=== PATIENT | male | born 1965 | race Caucasian/White ===

== ENCOUNTER 2020-09-08 15:17 | Outpatient (REF) | payer OTHER, SELFPAY ==
[2020-09-08 15:51] LABS: Glucose Urine UA NEG (NEG); Leukocyte Esterase Urine NEG (NEG); Nitrite Urine NEG (NEG); PH 5.5 (5.0-8.0); Specific Gravity - Urine >= 1.030 (1.005-1.025); Urine Blood 2+ (NEG); Urine Ketones NEG (NEG); Urine Protein NEG (NEG-TRACE)
[2020-09-08 15:57] LABS: Appearance Urine CLEAR; Color Urine YELLOW
[2020-09-08 16:13] LABS: RBC Urine 0-2 /HPF (0); WBC Urine 0 /HPF (0-4)
== END 2020-09-08 15:18 | disposition home or self-care (01) ==
LOC: HO.LAB 15:17
PROVIDERS: PCP Internal Medicine; Visit Provider Internal Medicine
DX: R31.9 Hematuria, unspecified (principal)
CPT/HCPCS: 81001

== ENCOUNTER → 2020-09-26 13:53 | Outpatient (BNVA) | payer OTHER, SELFPAY | PROVIDERS: PCP Internal Medicine; Visit Provider Physician Assistant Medical | DX: Z76.89 Persons encountering health services in other specified circumstances (principal) | CPT/HCPCS: G0296 ==

== ENCOUNTER 2020-10-15 09:38 | Outpatient (REF) | payer OTHER, SELFPAY ==
--- NOTE | 2020-10-15 09:40 | CT_ITS ---
EXAMINATION: CT CHEST SCREENING CLINICAL INFORMATION: Smoker. COMPARISON: CT chest 10/13/2009 TECHNIQUE: Multidetector volumetric CT imaging of the chest is performed without contrast using low dose technique. Additional 2D coronal and sagittal reformatted images and axial 3D maximum intensity projection (MIP) images are generated on the CT workstation. This CT examination was performed using dose optimization techniques as appropriate, variously including the following: *Automated exposure control *Adjustment of mA and/or kV according to patient size (this includes techniques or standardized protocols for targeted exams where dose is matched to indication/reason for exam; i.e. extremities or head) *Use of iterative reconstruction technique DLP: 56 mGy-cm FINDINGS: LUNGS: The lungs are hyperinflated with multiple calcified 1-2 mm nodules throughout both lungs. There is a 6 mm noncalcified nodule right lower lobe axial image 266/6, 4 mm nodule left lower lobe axial image 292/6, 2 mm right major fissure nodule image 288/6 likely intrafissural lymph node noted. MEDIASTINUM: The thyroid lobes are symmetrical and normal. The central trachea and the bronchi appear widely patent. Heart size and the great vessels are normal caliber. There are small precarinal and subcarinal lymph nodes. No pericardial effusion seen. PLEURA: There is no pleural effusion. No pleural mass or thickening. AXILLA: No lymphadenopathy. UPPER ABDOMEN: The visualized liver, spleen, pancreas, and bilateral adrenal glands are unremarkable. OSSEOUS STRUCTURES: There is no lytic or sclerotic process seen. CT/CT lung screening IMPRESSION: Hyperinflated lungs with multiple calcified small granulomas. Two noncalcified nodules left lower lobe and right lower lobe. There is an intrafissural lymph node right lung. ASSESSMENT: Lung-RADS category 3: Probably Benign. RECOMMENDATION: Six-month low-dose CT followup.
== END 2020-10-15 09:39 | disposition home or self-care (01) ==
LOC: HO.CT 09:38
PROVIDERS: Visit Provider Physician Assistant Medical
DX: F17.210 Nicotine dependence, cigarettes, uncomplicated (principal)
CPT/HCPCS: 71250

== ENCOUNTER 2021-05-15 13:58 | Outpatient (REF) | payer OTHER, SELFPAY ==
--- NOTE | ~2021-05-15 | CT_ITS ---
EXAMINATION: CT CHEST SCREENING CLINICAL INFORMATION: Nicotine dependence COMPARISON: None. TECHNIQUE: Multidetector volumetric CT imaging of the chest is performed without contrast using low dose technique. Additional 2D coronal and sagittal reformatted images and axial 3D maximum intensity projection (MIP) images are generated on the CT workstation. This CT examination was performed using dose optimization techniques as appropriate, variously including the following: *Automated exposure control *Adjustment of mA and/or kV according to patient size (this includes techniques or standardized protocols for targeted exams where dose is matched to indication/reason for exam; i.e. extremities or head) *Use of iterative reconstruction technique DLP: 108 mGy-cm. FINDINGS: LUNGS: The lungs are well expanded and clear of acute pneumonic process. There are scattered 2 mm calcified nodules right upper lobe, left upper lobe, right middle lobe. No noncalcified nodules, mass or consolidation seen. MEDIASTINUM: The thyroid lobes are symmetric and normal. The central trachea and the bronchi are widely patent. Heart size and the great vessels are normal caliber. No pericardial effusion seen. No abnormal-sized mediastinal or hilar lymph nodes visualized. PLEURA: There is no pleural effusion. No pleural mass or thickening. AXILLA: No lymphadenopathy. UPPER ABDOMEN: Visualized liver, spleen, pancreas and bilateral adrenal glands are unremarkable. OSSEOUS STRUCTURES: No lytic or sclerotic process seen. There is mild ventral spondylosis in the dorsal spine. CT/CT lung screen follow up IMPRESSION: Small 2 mm calcified pulmonary nodules. No noncalcified nodules seen. ASSESSMENT: Lung-RADS category 2: Benign. RECOMMENDATION: Low dose annual CT chest..
== END 2021-05-15 13:59 | disposition home or self-care (01) ==
LOC: HO.CT 13:58
PROVIDERS: Visit Provider Physician Assistant Medical
DX: Z12.2 Encounter for screening for malignant neoplasm of respiratory organs (principal); F17.210 Nicotine dependence, cigarettes, uncomplicated
CPT/HCPCS: 71250

== ENCOUNTER → 2021-06-05 09:57 | Outpatient (BNVA) | payer OTHER, SELFPAY | PROVIDERS: PCP Internal Medicine; Visit Provider Surgery | DX: R91.8 Other nonspecific abnormal finding of lung field (principal); F12.90 Cannabis use, unspecified, uncomplicated; F17.210 Nicotine dependence, cigarettes, uncomplicated; Z71.6 Tobacco abuse counseling | CPT/HCPCS: 99212 ==

== ENCOUNTER 2021-09-28 10:16 | Outpatient (REF) | payer OTHER, SELFPAY ==
[2021-09-28 10:20] LABS: MANUAL DIFF FLAG NO
[2021-09-28 10:40] LABS: Basophils Absolute Auto 0.1 X10*3/uL (0.0-0.2); Basophils Percent Auto 0.7 % (0-2); Eosinophils Absolute Auto 0.4 X10*3/uL (0.0-0.4); Eosinophils Percent Auto 4.4 % (0-4); Hematocrit 45.5 % (42.0-52.0); Hemoglobin 15.3 g/dl (14.0-18.0); Imm Gran Abs Auto 0.03 X10*3/uL (0.00-0.03); Imm Gran Pct Auto 0.3 % (0.0-0.4); Lymphocytes Absolute Auto 3.3 X10*3/uL (1.2-4.9); Lymphocytes Percent Auto 37.4 % (20-40); Mean Corpuscular HGB Conc 33.6 g/dl (31.0-36.0); Mean Corpuscular Hemoglobin 28.7 pg (27.0-33.0); Mean Corpuscular Volume 85.4 fL (80.0-98.0); Mean Platelet Volume 9.1 fL (9.4-12.4); Monocytes Absolute Auto 0.8 X10*3/uL (0.1-1.2); Monocytes Percent Auto 9.3 % (2-11); Neutrophils Absolute Auto 4.3 x10*3/uL (2.0-8.3); Neutrophils Percent Auto 47.9 % (45-73); Platelet Count 253 X10*3/uL (160-400); Red Blood Count 5.33 X10*6/uL (4.60-5.80); Red Cell Distribution Width 12.7 % (11.0-16.0); White Blood Count 8.9 X10*3/uL (4.8-10.8)
[2021-09-28 10:54] LABS: Appearance Urine CLEAR; Color Urine YELLOW; Glucose Urine UA NEG (NEG); Leukocyte Esterase Urine NEG (NEG); Nitrite Urine NEG (NEG); PH 5.5 (5.0-8.0); Specific Gravity - Urine 1.025 (1.005-1.025); Urine Blood 2+ (NEG); Urine Ketones NEG (NEG); Urine Protein NEG (NEG-TRACE)
[2021-09-28 11:10] LABS: Alanine Aminotransferase 29 U/L (0-40); Albumin Level 4.2 g/dL (3.5-5.0); Alkaline Phosphatase 73 U/L (39-117); Anion Gap 13 (12-20); Aspartate Amino Transferase 23 U/L (5-37); Bilirubin Total 0.3 mg/dL (0.0-1.0); Blood Urea Nitrogen 20 mg/dL (9-16); Calcium 9.2 mg/dL (8.4-10.2); Carbon Dioxide 27 mmol/L (22-29); Chloride 103 mmol/L (96-108); Cholesterol 162 mg/dL; Estimated Glomerular Filt Rate > 60; Glucose Fasting 108 mg/dL (60-99); HDL Cholesterol 27 mg/dL; LDL Cholesterol Calculated 94 mg/dl; Potassium 4.1 mmol/L (3.3-5.1); Sodium 139 mmol/L (135-145); Total Protein 7.6 g/dL (6.5-8.0); Triglycerides 207 mg/dL
[2021-09-28 11:32] LABS: PSA,Total (Free>4and<10) 0.21 ng/mL (0.00-4.00)
[2021-09-28 12:14] LABS: WBC Urine 0-2 /HPF (0-4)
== END 2021-09-28 10:17 | disposition home or self-care (01) ==
LOC: HO.LNP 10:16
PROVIDERS: Visit Provider Internal Medicine
DX: Z00.00 Encounter for general adult medical examination without abnormal findings (principal); Z12.5 Encounter for screening for malignant neoplasm of prostate; R31.9 Hematuria, unspecified; D72.820 Lymphocytosis (symptomatic); D72.829 Elevated white blood cell count, unspecified; K57.92 Diverticulitis of intestine, part unspecified, without perforation or abscess without bleeding
CPT/HCPCS: 80053; 80061; 81001; 84153; 85025

== ENCOUNTER → 2021-11-27 08:30 | Outpatient (BNVA) | payer OTHER, SELFPAY | PROVIDERS: PCP Internal Medicine; Referring Provider Internal Medicine; Visit Provider Internal Medicine Cardiovascular Disease | DX: R07.2 Precordial pain (principal); Z91.89 Other specified personal risk factors, not elsewhere classified | CPT/HCPCS: 93005; 99202 ==

== ENCOUNTER 2021-11-30 10:17 | Emergency (ER) | payer OTHER, SELFPAY ==
--- NOTE | ~2021-11-30 | CT_ITS ---
EXAMINATION: CT ABDOMEN AND PELVIS WITH CONTRAST CLINICAL INFORMATION: LLQ pain, history of diverticulitis. COMPARISON: Previous CT of the abdomen and pelvis May 2020 TECHNIQUE: Multidetector volumetric images were obtained from the superior aspect of the liver through the pubic symphysis following administration 85 mL of Omnipaque 350 intravenous contrast. Sagittal and coronal reformatted images were obtained on the technologist's workstation. Oral contrast: Yes This CT examination was performed using dose optimization techniques as appropriate, variously including the following: *Automated exposure control *Adjustment of mA and/or kV according to patient size (this includes techniques or standardized protocols for targeted exams where dose is matched to indication/reason for exam; i.e. extremities or head) *Use of iterative reconstruction technique DLP: 814.50 mGy-cm FINDINGS: LUNG BASES: There is dependent atelectasis at the lung bases. There is question of wall thickening of the distal thoracic esophagus. There is a posterior mediastinal lymph node adjacent to the esophagus in size measuring 7 x 10 mm. LIVER, GALLBLADDER, AND BILIARY TREE: The liver is low in attenuation suggestive of fatty infiltration. PANCREAS: The common bile duct appears dilated in the head of the pancreas measuring up to 6 mm. This is increased from May 2020 exam. SPLEEN: Unremarkable. ADRENAL GLANDS: Unremarkable. KIDNEYS AND URETERS: There are bilateral renal cysts. There is a small 1-2 mm stone in the upper pole of the left kidney. BLADDER: Unremarkable. GASTROINTESTINAL TRACT: There is diverticulosis of the colon. There is wall thickening of the left sigmoid colon and stranding of the surrounding fat suggestive of diverticulitis. No evidence of obstruction, perforation or abscess is seen. The small and large bowel is otherwise unremarkable. The appendix is unremarkable. The stomach is unremarkable. ABDOMINAL WALL: There is a small umbilical hernia containing fat. LYMPH NODES: Normal. VASCULAR: Unremarkable. PELVIC VISCERA: Unremarkable. OSSEOUS STRUCTURES: Unremarkable. CT/CT abdomen pelvis w con IMPRESSION: Left colon diverticulitis. Fatty liver. Dilated pancreatic duct in the head of the pancreas increased from previous exams. This could be better evaluated with MR of the pancreas with MRCP. Bilateral renal cysts. Small left renal stone. Question wall thickening of the distal thoracic esophagus. Fleischner guidelines were followed.
[2021-11-30 10:27] VITALS: BP 131/82; PULSE 89; RESP 17; TEMP 36.9; O2SAT 95; BMI 30.1
--- NOTE | 2021-11-30 12:13 | ED.ABDPAIN ---
HPI - Abdominal Pain General Chief Complaint: Abdominal Pain Stated Complaint: diverticulitis Time Seen by Provider: 11/30/21 11:56 Source: patient Mode of arrival: ambulatory Limitations: no limitations History of Present Illness HPI narrative: Patient comes emergency room complaining of left lower quadrant pain since yesterday. Patient states he has history of diverticulitis. Last flare approximately 6 years ago. Patient states that he tries to follow a diet, states he has not been constipated until yesterday. Patient denies any diarrhea, no vomiting, no fever chills, no UTI symptoms. Related Data Home Medications Medication Instructions Recorded Confirmed aripiprazole 2 mg tablet 4 mg PO DAILY 11/27/21 11/27/21 aspirin 81 mg tablet,delayed 81 mg PO DAILY 11/27/21 11/27/21 release (Adult Low Dose Aspirin) citalopram 20 mg tablet 20 mg PO DAILY 11/27/21 11/27/21 multivitamin 1 tab PO DAILY 11/27/21 11/27/21 Previous Rx's Medication Instructions Recorded levofloxacin 500 mg tablet 500 mg PO DAILY #9 tab 11/30/21 metronidazole 250 mg tablet 250 mg PO BID #19 tab 11/30/21 tramadol 50 mg tablet 50 mg PO BID PRN #7 tab 11/30/21 Allergies Allergy/AdvReac Type Severity Reaction Status Date / Time temazepam [TEMAZEPAM] Allergy Unknown SLEEPWALKIN Unverified 07/24/20 15:39 G From BENADRYL Allergy Unknown TWITCHING Uncoded 07/24/20 15:39 Review of Systems Review of Systems Constitutional : No Weight loss, No Fever, No Chills, No Night Sweats, No Fatigue, No Malaise ENT/Mouth : No Hearing loss, No Ear Pain, No Nasal Congestion, No Sinus Pain, No Hoarseness, No sore throat, No Rhinorrhea, No Swallowing Difficulty Eyes: No Eye Pain, No Swelling, No Redness, No Foreign Body, No Discharge, No Vision Changes Cardiovascular : No Chest Pain, No SOB, No Dyspnea on Exertion, No Orthopnea, No Edema, No Palpitations Respiratory : No Cough, No Sputum, No Wheezing, No Smoke Exposure, No Dyspnea Gastrointestinal : No Nausea, No Vomiting, No Diarrhea, Constipation since yesterday, complaining of left lower quadrant pain since yesterday Genitourinary : no irregular bleeding, No Dysuria, No Urinary Frequency, No Hematuria, No Urinary Incontinence, No Urgency, No Flank Pain, No Urinary Flow Changes, No Hesitancy Musculoskeletal : No joint pain, No Myalgias, No Joint Swelling Skin : No Skin Lesions, No rash Neuro : No Weakness, No Numbness, No Paresthesias, No Loss of Consciousness, No Dizziness, No Headache Psych : No Anxiety/Panic, No Depression, No SI/HI/AH/VH, No Social Issues, Heme/Lymph: No Bruising, No Bleeding,No Lymphadenopathy Endocrine : No Polyuria, No Polydipsia, No Temperature Intolerance Physical Exam Vital Signs: Vital Signs: Last Vital Signs Temp 97.9 F 11/30/21 15:10 Pulse 86 11/30/21 15:10 Resp 18 11/30/21 15:10 BP 124/84 11/30/21 15:10 Pulse Ox 96 11/30/21 15:10 BMI result Body Mass Index 30.1 Const: Other: Appearance: Alert. Oriented X3. No acute distress. Eyes: Pupils equal, round and reactive to light. ENT: Pharynx normal. Neck: Normal inspection. Neck supple. No lymph nodes noted. No crepitus CVS: Normal heart rate and rhythm. Pulses normal. Normal S1 and S2 Respiratory: No respiratory distress. Breath sounds normal. No Wheezing. No rales Abdomen: Soft , pain to palpation in the left lower quadrant.No rigidity. No distention. Skin: Skin warm and dry. Normal skin color. Normal skin turgor. Extremities: No lower extremity edema. No Lacerations. No Rash Neuro: Oriented X 3. No motor deficit. No sensory deficit. Moving all extermities. No slurred speech. Course Course Course Narrative: Patient will get IV fluids, we will get a CT scan with contrast. At this time, all labs are pending. Patient declined any pain medication, states that he does not have significant pain unless he moves. I discussed the CT scan and labs with the patient, patient has diverticulitis. Patient was given 1 dose of levofloxacin and metronidazole p.o. in the emergency room. Consent to the patient's pharmacy. Also, I discussed with the patient the CT scan finding regarding the pancreas duct dilation. Patient will follow-up with his primary care physician, he may need a GI referral and possibly MRCP. at this time, patient has no discomfort in the epigastric or right upper quadrant area MDM - Abdominal Pain Lab Data Result diagrams: 11/30/21 12:18 11/30/21 12:18 Labs: Lab Results 11/30/21 11/30/21 11/30/21 Range/Units 12:18 12:18 13:24 WBC 14.3 H (4.8-10.8) X10*3/uL RBC 5.57 (4.60-5.80) X10*6/uL Hgb 16.1 (14.0-18.0) g/dl Hct 47.1 (42.0-52.0) % MCV 84.6 (80.0-98.0) fL MCH 28.9 (27.0-33.0) pg MCHC 34.2 (31.0-36.0) g/dl RDW 13.2 (11.0-16.0) % Plt Count 232 (160-400) X10*3/uL MPV 8.6 L (9.4-12.4) fL Immature Gran % (Auto) 0.4 (0.0-0.4) % Neut % (Auto) 66.7 (45-73) % Lymph % (Auto) 22.1 (20-40) % [place] % (Auto) 8.8 (2-11) % Eos % (Auto) 1.7 (0-4) % Baso % (Auto) 0.3 (0-2) % Lymph # (Auto) 3.2 (1.2-4.9) X10*3/uL [place] # (Auto) 1.3 H (0.1-1.2) X10*3/uL Eos # (Auto) 0.2 (0.0-0.4) X10*3/uL Baso # (Auto) 0.0 (0.0-0.2) X10*3/uL Abs Immat Gran (auto) 0.06 H (0.00-0.03) X10*3/uL Absolute Neuts (auto) 9.5 H (2.0-8.3) x10*3/uL Absolute Nucleated RBC 0.000 (0.0-0.012) X10*3/uL Nucleated RBC % (auto) 0.0 (0.0-0.2) /100WBC Sodium 138 (135-145) mmol/L Potassium 4.1 (3.3-5.1) mmol/L Chloride 104 (96-108) mmol/L Carbon Dioxide 27 (22-29) mmol/L Anion Gap 11 L (12-20) BUN 18 H (9-16) mg/dL Creatinine 0.85 (0.5-1.4) mg/dL Estim Creat Clear Calc 112.4 Estimated GFR > 60 Random Glucose 96 (60-115) mg/dL Calcium 9.8 D (8.4-10.2) mg/dL Total Bilirubin 0.5 (0.0-1.0) mg/dL Direct Bilirubin 0.2 (0.0-0.5) mg/dL AST 27 (5-37) U/L ALT 30 (0-40) U/L Alkaline Phosphatase 74 (39-117) U/L Total Protein 8.2 H (6.5-8.0) g/dL Albumin 4.3 (3.5-5.0) g/dL Urine Color YELLOW Urine Appearance CLEAR Urine pH 5.5 (5.0-8.0) Ur Specific [place] >= 1.030 H (1.005-1.025) Urine Protein NEG (NEG-TRACE) MG/DL Urine Glucose (UA) NEG (NEG) MG/DL Urine Ketones NEG (NEG) MG/DL Urine Blood 2+ H (NEG) Urine Nitrite NEG (NEG) Ur Leukocyte Esterase NEG (NEG) Urine RBC 1-4 (0) /HPF Urine WBC 0-2 (0-4) /HPF Ur Squamous Epith Cells NONE /LPF Urine Bacteria NONE /LPF Imaging Data CT scan - abdomen: Radiologist's impression: FINDINGS: LUNG BASES: There is dependent atelectasis at the lung bases. There is question of wall thickening of the distal thoracic esophagus. There is a posterior mediastinal lymph node adjacent to the esophagus in size measuring 7 x 10 mm. LIVER, GALLBLADDER, AND BILIARY TREE: The liver is low in attenuation suggestive of fatty infiltration. PANCREAS: The common bile duct appears dilated in the head of the pancreas measuring up to 6 mm. This is increased from May 2020 exam. SPLEEN: Unremarkable.? ADRENAL GLANDS: Unremarkable.? KIDNEYS AND URETERS: There are bilateral renal cysts. There is a small 1-2 mm stone in the upper pole of the left kidney. BLADDER: Unremarkable.? GASTROINTESTINAL TRACT: There is diverticulosis of the colon. There is wall thickening of the left sigmoid colon and stranding of the surrounding fat suggestive of diverticulitis. No evidence of obstruction, perforation or abscess is seen. The small and large bowel is otherwise unremarkable. The appendix is unremarkable. The stomach is unremarkable. ABDOMINAL WALL: There is a small umbilical hernia containing fat.? LYMPH NODES: Normal. VASCULAR: Unremarkable. PELVIC VISCERA: Unremarkable.? OSSEOUS STRUCTURES: Unremarkable.? CT/CT abdomen pelvis w con IMPRESSION: Left colon diverticulitis. Fatty liver. Dilated pancreatic duct in the head of the pancreas increased from previous exams. This could be better evaluated with MR of the pancreas with MRCP. Bilateral renal cysts. Small left renal stone. Question wall thickening of the distal thoracic esophagus. ? Fleischner guidelines were followed. Discharge Plan Discharge Clinical Impression: Diverticulitis Patient Disposition: Home, Self-Care Instructions: Diverticulitis (ED), Diverticulitis Diet (ED) Additional Instructions: please follow-up with your primary care physician tomorrow. You have a dilation of the duct in your pancreas. You may need further imaging. If you have any worsening or new symptoms, please return to the emergency room or call 911 Prescriptions: New levofloxacin 500 mg tablet 500 mg PO DAILY Qty: 9 RF: 0 metronidazole 250 mg tablet 250 mg PO BID Qty: 19 RF: 0 tramadol 50 mg tablet 50 mg PO BID PRN (Reason: pain) Qty: 7 RF: 0 No Action aripiprazole 2 mg tablet 4 mg PO DAILY RF: 0 citalopram 20 mg tablet 20 mg PO DAILY RF: 0 aspirin [Adult Low Dose Aspirin] 81 mg tablet,delayed release (DR/EC) 81 mg PO DAILY RF: 0 multivitamin Tablet 1 tab PO DAILY RF: 0 PMFSH Past Medical History Medical History Personal history of nicotine dependence Pulmonary nodules Family History Family History Father No problems noted. Mother Lung cancer Social History Social History Alcohol intake: current Alcohol intake frequency: does not drink Cigarettes Per Day: 15 Years Smoked: 37 Advance Directives: No Advance Directives Information Provided: No
[2021-11-30] MEDS: 0.9 % Sodium Chloride 1,000 ML 999 ML IVCONT (12:19)
[2021-11-30 12:24] LABS: MANUAL DIFF FLAG NO
[2021-11-30 12:28] LABS: Basophils Percent Auto 0.3 % (0-2); Eosinophils Absolute Auto 0.2 X10*3/uL (0.0-0.4); Eosinophils Percent Auto 1.7 % (0-4); Hematocrit 47.1 % (42.0-52.0); Hemoglobin 16.1 g/dl (14.0-18.0); Imm Gran Abs Auto 0.06 X10*3/uL (0.00-0.03); Imm Gran Pct Auto 0.4 % (0.0-0.4); Lymphocytes Absolute Auto 3.2 X10*3/uL (1.2-4.9); Lymphocytes Percent Auto 22.1 % (20-40); Mean Corpuscular HGB Conc 34.2 g/dl (31.0-36.0); Mean Corpuscular Hemoglobin 28.9 pg (27.0-33.0); Mean Corpuscular Volume 84.6 fL (80.0-98.0); Mean Platelet Volume 8.6 fL (9.4-12.4); Monocytes Absolute Auto 1.3 X10*3/uL (0.1-1.2); Monocytes Percent Auto 8.8 % (2-11); Neutrophils Absolute Auto 9.5 x10*3/uL (2.0-8.3); Neutrophils Percent Auto 66.7 % (45-73); Platelet Count 232 X10*3/uL (160-400); Red Blood Count 5.57 X10*6/uL (4.60-5.80); Red Cell Distribution Width 13.2 % (11.0-16.0); White Blood Count 14.3 X10*3/uL (4.8-10.8)
[2021-11-30 12:45] LABS: Alanine Aminotransferase 30 U/L (0-40); Albumin Level 4.3 g/dL (3.5-5.0); Alkaline Phosphatase 74 U/L (39-117); Anion Gap 11 (12-20); Aspartate Amino Transferase 27 U/L (5-37); Bilirubin Direct 0.2 mg/dL (0.0-0.5); Bilirubin Total 0.5 mg/dL (0.0-1.0); Blood Urea Nitrogen 18 mg/dL (9-16); Calcium 9.8 mg/dL (8.4-10.2); Carbon Dioxide 27 mmol/L (22-29); Chloride 104 mmol/L (96-108); Creatinine Clr Calc Pharmacy 112.4; Estimated Glomerular Filt Rate > 60; Glucose Random 96 mg/dL (60-115); Potassium 4.1 mmol/L (3.3-5.1); Sodium 138 mmol/L (135-145); Total Protein 8.2 g/dL (6.5-8.0)
[2021-11-30 13:22] VITALS: BP 115/76; PULSE 76; RESP 17; TEMP 36.7; O2SAT 98
[2021-11-30 13:34] LABS: Appearance Urine CLEAR; Color Urine YELLOW; Glucose Urine UA NEG (NEG); Leukocyte Esterase Urine NEG (NEG); Nitrite Urine NEG (NEG); PH 5.5 (5.0-8.0); Specific Gravity - Urine >= 1.030 (1.005-1.025); UACC Culture Trigger NO; Urine Blood 2+ (NEG); Urine Ketones NEG (NEG); Urine Protein NEG (NEG-TRACE)
[2021-11-30] MEDS: iohexoL 350 MG/ML 100 ML INFUS..BTL IV (13:45)
[2021-11-30 13:57] LABS: WBC Urine 0-2 /HPF (0-4)
[2021-11-30 15:10] VITALS: BP 124/84; PULSE 86; RESP 18; TEMP 36.6; O2SAT 96
[2021-11-30] MEDS: levoFLOXacin 500 MG TABLET PO (15:49)
[2021-11-30] MEDS: metroNIDAZOLE 250 MG TABLET PO (15:50)
== END 2021-11-30 15:53 | disposition home or self-care (01) ==
PROVIDERS: Emergency Provider Emergency Medicine; PCP Internal Medicine
DX: K57.92 Diverticulitis of intestine, part unspecified, without perforation or abscess without bleeding (principal); R10.32 Left lower quadrant pain; K86.89 Other specified diseases of pancreas; F17.200 Nicotine dependence, unspecified, uncomplicated; R91.8 Other nonspecific abnormal finding of lung field
CPT/HCPCS: 36415; 74177; 80048; 80076; 81001; 85025; 96360; 99283; 99284; Q9967

== ENCOUNTER 2021-12-18 07:21 | Outpatient (REF) | payer OTHER, SELFPAY ==
--- NOTE | ~2021-12-18 | MR_ITS ---
EXAMINATION: MR ABDOMEN WITHOUT AND WITH CONTRAST CLINICAL INFORMATION: Follow up pancreatic duct dilatation. COMPARISON: Previous CT of the abdomen and pelvis most recent November 2021. TECHNIQUE: MR abdomen was performed without and with use of 10 mL intravenous Gadavist gadolinium contrast. Postcontrast images are performed in multiphase dynamic sequences. Imaging was performed in 3 planes. MRCP sequences were also performed. FINDINGS: LUNG BASES: The visualized lung bases are unremarkable. LIVER, GALLBLADDER, AND BILIARY TREE: No focal hepatic lesion or biliary ductal dilatation is present. The gallbladder is unremarkable with no evidence of gallbladder wall thickening, or obvious pericholecystic inflammatory changes. PANCREAS: There is mild dilatation of the main pancreatic duct in the head of the pancreas measuring 6 mm and measuring 5 mm in the neck of the pancreas. No filling defect in the main pancreatic duct is seen. The pancreas is otherwise normal. The pancreas is normal in signal. No abnormal enhancement or mass is seen. The peripancreatic fat is normal. The pancreas is normal in signal. No mass is seen. SPLEEN: Normal. ADRENAL GLANDS: Normal. KIDNEYS AND URETERS: Bilateral renal cysts. There is a 2 cm complex cyst in the lower pole of the right kidney which is high signal on T1-weighted sequences and has a fluid/fluid level. The remainder of the cysts represent simple cysts. The kidneys are normal in size, shape, and enhance symmetrically. No hydronephrosis. No perinephric stranding. GASTROINTESTINAL TRACT: Diverticulosis of the colon. No bowel obstruction. No ascites or fluid collection. ABDOMINAL WALL: There is a small umbilical hernia containing fat. LYMPH NODES: No lymphadenopathy. VASCULAR: Unremarkable. OSSEOUS STRUCTURES: Marrow signal normal. MR/MR abdomen wo/w con IMPRESSION: Mild dilatation of the main pancreatic duct in the head and neck of the pancreas. No mass or filling defect seen. Fatty infiltration of the liver. Bilateral renal cysts. 2 cm complex cyst in the lower pole of the right kidney. The remainder of the renal cysts represent simple cysts. Diverticulosis of the colon.
== END 2021-12-18 07:22 | disposition home or self-care (01) ==
LOC: HO.MRI 07:21
PROVIDERS: PCP Internal Medicine; Visit Provider Internal Medicine
DX: K86.9 Disease of pancreas, unspecified (principal)
CPT/HCPCS: 74183; A9585

== ENCOUNTER → 2021-12-24 08:14 | Outpatient (REF) | payer OTHER, SELFPAY ==
--- NOTE | 2021-12-24 08:18 | CA_ITS ---
Acquisition Time: 2021-12-24 09:13:51 Total Exercise Time: 00:07:46 Test Indications: CP Medications: SEE CHART Protocol: FAIZA Max HR: 142 BPM 86% of Pred: 164 BPM Max BP: 150/080 mmHG Max Work Load: 9.7 METS Exercise stress test with exercise 7 min 46 sec of Faiza protocol, with moderate shortness of breath, no chest discomfort, with isolated PACs and PVCs, with normotensive response to exercise, without EKG changes meeting criteria for ischemia. Breathing returned to normal in recovery. Test reviewed with Dr Samano Referred By: Regino Samano Overread By: MAULIK BOOTH
== END ==
LOC: HO.CARD 08:14
PROVIDERS: Visit Provider Internal Medicine Cardiovascular Disease
DX: R07.2 Precordial pain (principal)
CPT/HCPCS: 93017

== ENCOUNTER → 2022-01-01 13:47 | Outpatient (REF) | payer OTHER, SELFPAY ==
--- NOTE | 2022-01-01 13:50 | CA_ITS ---
Transthoracic Echocardiogram Patient (Last, First, Middle): Braulio Reardon A Gender: Male Date of : 1965 Age: 56 Procedure Date: 01/01/2022 Procedure Type: Transthoracic Echocardiogram Location: OP Height: 177.8 cm Weight: 95.26 kg BSA: 2.13 m2 Heart Rate: bpm BP: 122 / 70 mmHg [employer]: KEVAN Referring MD: Regino Samano MD Symptoms: R07.2 - Precordial pain Study Quality: Fair ECG Rhythm: Sinus Conclusions: - The left ventricular systolic function is normal. The calculated ejection fraction is 59% by biplane method. - No obvious valvular pathology seen on this study. Findings Left Ventricle Normal left ventricular cavity size. There is mildly increased left ventricular wall thickness. The left ventricular systolic function is normal. The calculated ejection fraction is 59% by biplane method. There is no evidence of regional wall motion abnormalities. Diastolic function is normal for age. Right Ventricle Normal right ventricular cavity size and systolic function. Atria Both atria are normal in size. Aortic Valve There is a normal trileaflet aortic valve. There is no aortic valve stenosis. There is no aortic valve regurgitation. Mitral Valve The mitral valve appears normal. There is trace mitral valve regurgitation. There is no mitral valve stenosis. Pulmonic Valve The pulmonic valve was not well visualized. Tricuspid Valve Normal tricuspid valve structure. There is trace tricuspid valve regurgitation. The pulmonary artery systolic pressure is normal. Great Vessels The aortic annulus, sinuses of valsalva, and asc aorta are normal in size. Venous The inferior vena cava is normal in size and collapses greater than 50% with inspiration. Pericardium/Pleural There is no evidence of pericardial effusion. Prior Study Comparison No prior study available for comparison. Recommendations, Care & Conclusions No obvious valvular pathology seen on this study. Measurements 2D Linear Measurements IVSd: 1.26 0.6-0.9/0.6-1.0 cm LVIDd: 3.45 3.9-5.3/4.2-5.9 cm LVIDd Index: 1.62 2.4-3.2/2.2-3.1 cm/m2 LVIDs: 2.15 2.0-3.6 cm LVPWd: 1.23 0.7-1.1 cm Ao Root: 3.50 2.1-3.5 cm LA Diam: 3.30 2.7-3.8/3.0-4.0 cm LAIDs Index: 1.55 1.5-2.3 cm/m2 LV Mass: 175.26 67-162/88-224 g LV Mass Index: 82.28 43-95/49-115 g/m2 LVOT Diam: 2.20 3.0+(-)1.3 cm 2D Systolic Function EF 4C: 60.30 >55% EF 2C: 57.90 >55% EF BiP: 59.20 >55% Mitral Valve MV Pk E: 0.61 MV PK A: 0.81 MV Decel Time: 185.00 E/A: 0.70 E'Lateral: 9.46 E'Medial: 6.74 E/E' Med: 9.00 E/E' Lat: 6.40 PHT: 54.00 MVA PHT: 4.07 Decel Spencer: 3.29 Aortic Valve AoV Pk Brenton: 1.41 AoV Mn Brenton: 0.91 AoV VTI: 0.28 AoV Pk Grad: 8.00 Aov Mn Grad: 4.00 LIANE Cont.VTI: 2.22 LVOT LVOT Pk Brenton: 0.85 LVOT Mn Brenton: 0.51 LVOT VTI: 0.16 LVOT Pk Grad: 3.00 LVOT Mn Grad: 1.00 LVOT Diam: 2.20 LVOT Area: 3.80 Diastolic Function MV Pk E: 0.61 MV Pk A: 0.81 E/A: 0.70 E'Medial: 6.74 E/E' Med: 9.00 E' Laterial: 9.46 E/E' Lat: 6.40 Right Ventricle TAPSE (mm): 27.00 Tricuspid Valve TR Pk Brenton: 1.58 TR Pk Grad: 10.00 Great Vessels Aorta Ao Root-2D: 3.50 2.0-3.7 cm Ao Asc: 3.50 2.1-3.4 cm Pulmonary Valve PV Pk Brenton: 1.03 Peak PV Grad: 4.00 Updated in Other Vendor System with Status of Final Christ Engel MD electronically signed on 01/03/2022 12:59:06 PM with status of Final
== END ==
LOC: HO.CARD 13:47
PROVIDERS: Visit Provider Internal Medicine Cardiovascular Disease
DX: R07.2 Precordial pain (principal)
CPT/HCPCS: 93306

== ENCOUNTER → 2022-01-12 13:44 | Outpatient (BNVA) | payer OTHER, SELFPAY | PROVIDERS: PCP Internal Medicine; Referring Provider Internal Medicine; Visit Provider Nurse Practitioner Family | DX: Z01.810 Encounter for preprocedural cardiovascular examination (principal); R07.89 Other chest pain; I51.7 Cardiomegaly; G47.33 Obstructive sleep apnea (adult) (pediatric) | CPT/HCPCS: 93005; 99212 ==

== ENCOUNTER 2022-01-22 08:41 | Day surgery (SDC) | payer OTHER, SELFPAY ==
--- NOTE | 2022-01-20 14:14 | P.CONAN_ITS ---
Documented by User: Marie Luke NP 01/20/22 14:16 HPI - Anesthesia Eval Consult details Narrative: 56yo M for Upper Endoscopy Cardiac cleared at low risk [facility] Active Problems Active Problems: All Active Problems (Updated 01/19/22 @ 15:02 by Maribell Andrea, RN) Chest discomfort (Acute) Obstructive sleep apnea (Acute) LVH (left ventricular hypertrophy) (Acute) Preop cardiovascular exam (Acute) Personal history of nicotine dependence (Acute) Pulmonary nodules (Acute) Past Medical History Medical History History of depression History of diverticulitis Palpitations Personal history of nicotine dependence Pulmonary nodules Family History Family History Father No problems noted. Mother Lung cancer Surgical History Surgical History Hx of basal cell carcinoma excision Hx of colonoscopy Social History Social History Alcohol intake: current Alcohol intake frequency: does not drink Patient Tobacco Use Status: Former Tobacco user Quit Date: 2019 Cigarettes Per Day: 15 Years Smoked: 37 Substance Use Type Other:: smoked yesterday, smokes bid Substance Use Frequency: Daily Are you DNR?: No Advance Directives: No Advance Directives Information Provided: Yes Recently lost weight without trying: No Meds Allergies Allergy/AdvReac Type Severity Reaction Status Date / Time temazepam [TEMAZEPAM] Allergy Unknown SLEEPWALKIN Verified 01/19/22 15:02 G From BENADRYL Allergy Unknown TWITCHING Uncoded 01/19/22 15:02 Home Medications Medication Instructions Recorded Confirmed Last Taken Type aripiprazole 2 mg tablet 4 mg PO DAILY 11/27/21 01/19/22 Unknown History aspirin 81 mg tablet,delayed 81 mg PO DAILY 11/27/21 01/19/22 Unknown History release (Adult Low Dose Aspirin) citalopram 20 mg tablet 20 mg PO DAILY 11/27/21 01/19/22 Unknown History multivitamin 1 tab PO DAILY 11/27/21 01/19/22 Unknown History Exam Exam Date and Time: January 20, 2022 1414 Pertinent Lab Results Pertinent Lab Results: Laboratory Tests 11/30/21 11/30/21 12:18 12:18 WBC 14.3 H Hgb 16.1 Hct 47.1 Plt Count 232 Sodium 138 Potassium 4.1 Chloride 104 Carbon Dioxide 27 BUN 18 H Creatinine 0.85 Narrative Narrative: EKG 01/2022 normal sinus rhythm, incomplete right bundle-branch block, no change from prior EKG, rate 79 ECHO 12/2021 Conclusions: - The left ventricular systolic function is normal.? The ? calculated ejection fraction is 59% by biplane method. ? - No obvious valvular pathology seen on this study.? ? ? Exercise Stress 12/2021 Protocol: BRENNEN ? Max HR: 142 BPM? 86% of? Pred: 164 BPM Max BP: 150/080 mmHG Max Work Load: 9.7 METS ? Exercise stress test with exercise 7 min 46 sec of Brennen protocol, with moderate ?shortness of breath, no chest discomfort, with isolated PACs and PVCs, with ?normotensive response to exercise, without EKG changes meeting criteria for ?ischemia. Breathing returned to normal in recovery.? Test reviewed with Dr De La Torre Assessment and Plan Assessment Anesthesia Assessment: Chart Reviewed Documented by User: Lisa Pang MD 01/22/22 09:46 PMFSH Past Medical History Medical History History of depression History of diverticulitis Palpitations Personal history of nicotine dependence Pulmonary nodules Family History Family History Father No problems noted. Mother Lung cancer Surgical History Surgical History Hx of basal cell carcinoma excision Hx of colonoscopy History of Problems with Anesthesia: No Social History Social History Alcohol intake: current Alcohol intake frequency: does not drink Patient Tobacco Use Status: Former Tobacco user Quit Date: 2019 Cigarettes Per Day: 15 Years Smoked: 37 Substance Use Type Other:: smoked yesterday, smokes bid Substance Use Frequency: Daily Are you DNR?: No Advance Directives: No Advance Directives Information Provided: Yes Recently lost weight without trying: No Meds Allergies Allergy/AdvReac Type Severity Reaction Status Date / Time temazepam [TEMAZEPAM] Allergy Unknown SLEEPWALKIN Verified 01/19/22 15:02 G From BENADRYL Allergy Unknown TWITCHING Uncoded 01/19/22 15:02 Home Medications Medication Instructions Recorded Confirmed Last Taken Type aripiprazole 2 mg tablet 4 mg PO DAILY 11/27/21 01/19/22 Unknown History aspirin 81 mg tablet,delayed 81 mg PO DAILY 11/27/21 01/19/22 Unknown History release (Adult Low Dose Aspirin) citalopram 20 mg tablet 20 mg PO DAILY 11/27/21 01/19/22 Unknown History multivitamin 1 tab PO DAILY 11/27/21 01/19/22 Unknown History Exam Airway Mallampati Class: II TM Dist: >3cm Neck ROM: Full Loose/Missing/Broken Teeth: No Heart: RRR Lungs: CTA Assessment and Plan Assessment Anesthesia Assessment: Anesthesia Plan Discussed Final Anesthetic Review History of Problems with Anesthesia: No NPO: Yes ASA Class: II Final Preanesthetic Review: Meds/Allgs Chart Reviewed, Consent Obtained/Reviewed and Anes Risks/Benef Reviewed Patient Risk: Intermediate Procedure Risk: Intermediate Anesthetic Plan Anesthetic Plan: MAC: Disposition: Standard PACU
[2022-01-22 08:49] VITALS: BMI 30.1
[2022-01-22 09:07] VITALS: BP 114/75; PULSE 70; RESP 18; TEMP 36.9; O2SAT 96
[2022-01-22] MEDS: Lactated Ringers 1,000 ML 100 ML IVCONT (09:33)
--- NOTE | 2022-01-22 09:45 | P.HPSUR_ITS ---
Pre-Procedural Eval Section A Date of Service: 01/22/22 Section B Chief Complaint: ab findings Details of Present Illness: see h&p no changes Relevant Family History (Specify if Yes): No Relevant Social History: None Present Medications: see Short Stay Collaborative assessment Medical History: No relevant PMH History of Previous Operations: No relevant previous surgery Allergies: Allergies Allergy/AdvReac Type Severity Reaction Status Date / Time temazepam [TEMAZEPAM] Allergy Unknown SLEEPWALKIN Verified 01/19/22 15:02 G From BENADRYL Allergy Unknown TWITCHING Uncoded 01/19/22 15:02 Review of Systems Sugical H&P ROS: Negative: Constitution, Cardiovascular, Respiratory, Neurological, Psychiatric, Hem-Onc, Allergic/Immunologic, Gastrointestinal, Genitourinary, Musculoskeletal, Integumentary, Endocrine and Eyes/Ears/Nose /Throat Exam Surgical H&P Exam: Normal: HEENT, Normal: Heart, Normal: Lungs, Normal: Extremities, Normal: Abdomen, Normal: Skin and Normal: Neurological Plan Diagnosis/Plan: Unchanged I have reviewed the history and physical and performed a pertinent physical examination on my patient. No changes have occurred unless specified.
[2022-01-22 10:11] VITALS: BP 106/74; PULSE 83; RESP 18; TEMP 36.2; O2SAT 98
--- NOTE | 2022-01-22 10:17 | PM.OP ---
Brief Operative Note Date of Service: 01/22/22 Pre-op diagnosis: dysphagia Post-op diagnosis: same Procedure: egd Surgeon: Dylan Castro Anesthesia: MAC Was an Respiratory Therapy Instructor used for this Procedure?: No Estimated blood loss (mL): 5 Pathology: other (bxs rgj and antrum) Condition: stable Disposition: PACU
[2022-01-22 10:26] VITALS: BP 124/70; PULSE 75; RESP 18; TEMP 36.2; O2SAT 97
--- NOTE | 2022-01-22 11:07 | OP_ITS ---
SURGEON: Dylan Castro MD INDICATIONS: Dysphagia and gastroesophageal reflux disease. PREOPERATIVE DIAGNOSIS: POSTOPERATIVE DIAGNOSIS: PROCEDURE PERFORMED: Upper endoscopy with biopsy. ESTIMATED BLOOD LOSS: COMPLICATIONS: ANESTHESIA: ASSISTANTS: SPECIMENS: MEDICATIONS: Monitored anesthesia care. DESCRIPTION OF PROCEDURE: History and physical were performed. The risks and benefits of the procedure were explained to the patient. Informed consent was obtained. The patient was placed in left lateral decubitus position. The Olympus video gastroscope was introduced into the esophagus, stomach, and duodenum. Examination was performed. The scope was removed. He tolerated the procedure well and was taken to recovery in stable condition. FINDINGS: Esophagus: The esophagus showed erosive esophagitis of the distal 5 cm with linear erosions and friability. The mucosa blood easily in contact. There was no stricture. There was a small sliding hiatal hernia. Stomach: The stomach showed no evidence of masses or ulcers. Changes of gastritis were present in the body. Duodenum: The bulb and second portion were normal. Biopsies were obtained from the EG junction and from the antrum. IMPRESSION: 1. Erosive esophagitis. 2. Gastritis. RECOMMENDATION: 1. Follow up the biopsy results. 2. Begin high-dose proton pump inhibitor. 3. Repeat upper endoscopy is recommended in approximately 12 weeks for reassessment of the mucosal healing and possible balloon dilation. MD DYLON Bryant/DAVIDAL / [id number]
== END 2022-01-22 11:35 | disposition home or self-care (01) ==
PROVIDERS: PCP Internal Medicine; Visit Provider Internal Medicine Gastroenterology
PROC: 0DJ08ZZ Inspection of Upper Intestinal Tract, Via Natural or Artificial Opening Endoscopic (ICD-10-PCS; CPT 43235; principal; 2022-01-22 09:50)
DX: K22.10 Ulcer of esophagus without bleeding (principal); K29.50 Unspecified chronic gastritis without bleeding; B96.81 Helicobacter pylori [H. pylori] as the cause of diseases classified elsewhere; K21.9 Gastro-esophageal reflux disease without esophagitis; K44.9 Diaphragmatic hernia without obstruction or gangrene
CPT/HCPCS: 43239; 88305; 88312; 88342; J2405; J2765

== ENCOUNTER 2022-03-22 12:15 | Emergency (ER) | payer OTHER, SELFPAY | END 2022-03-22 19:22 | disposition left against medical advice (07) | PROVIDERS: Emergency Provider Emergency Medicine | DX: M79.601 Pain in right arm (principal) ==

== ENCOUNTER 2022-05-07 08:55 | Day surgery (SDC) | payer OTHER, SELFPAY ==
[2022-04-06 20:24] VITALS: BMI 30.1
--- NOTE | 2022-05-06 09:42 | P.CONAN_ITS ---
Documented by User: Marie Luke NP 05/06/22 09:45 HPI - Anesthesia Eval Consult details Narrative: 56yo M for Upper Endoscopy Cardiac cleared [facility] Active Problems Active Problems: All Active Problems (Updated 04/06/22 @ 19:52 by Kajal Montejo RN) Chest discomfort (Acute) Obstructive sleep apnea (Acute) LVH (left ventricular hypertrophy) (Acute) Preop cardiovascular exam (Acute) Personal history of nicotine dependence (Acute) Pulmonary nodules (Acute) Past Medical History Medical History (Updated 04/06/22 @ 19:52 by Kajal Montejo RN) COPD (chronic obstructive pulmonary disease) Elevated AFP Elevated cholesterol GERD (gastroesophageal reflux disease) H. pylori infection History of depression History of diverticulitis Palpitations Personal history of nicotine dependence Pulmonary nodules Family History Family History Father No problems noted. Mother Lung cancer Surgical History Surgical History (Updated 04/07/22 @ 13:00 by Maribell Andrea RN) History of esophagogastroduodenoscopy (EGD) Hx of basal cell carcinoma excision Hx of colonoscopy History of Problems with Anesthesia: No Social History Social History Alcohol intake: current Alcohol intake frequency: does not drink Patient Tobacco Use Status: Former Tobacco user Quit Date: 2016 Cigarettes Per Day: 15 Years Smoked: 37 Smoked in Last 30 Days: No Use of substances other than those prescribed or required for medical reasons: Yes Substance Use Frequency: Daily Are you DNR?: Yes Advance Directives: No Advance Directives Information Provided: No Advance Directives on File: No Recently lost weight without trying: No Nutrition Risks: No Nutritional Risk Meds Allergies Allergy/AdvReac Type Severity Reaction Status Date / Time temazepam [TEMAZEPAM] Allergy Unknown SLEEPWALKIN Verified 04/07/22 13:00 G feathers Allergy Hives Verified 04/06/22 19:47 From BENADRYL Allergy Unknown TWITCHING Uncoded 04/07/22 13:00 Home Medications Medication Instructions Recorded Confirmed Last Taken Type aripiprazole 2 mg tablet 4 mg PO DAILY 11/27/21 04/06/22 Unknown History aspirin 81 mg tablet,delayed 81 mg PO DAILY 11/27/21 04/06/22 Unknown History release (Adult Low Dose Aspirin) citalopram 20 mg tablet 20 mg PO DAILY 11/27/21 04/06/22 Unknown History multivitamin 1 tab PO DAILY 11/27/21 04/06/22 Unknown History atorvastatin 10 mg tablet 1 tab PO DAILY 04/06/22 04/07/22 Unknown History omeprazole 40 mg capsule,delayed 1 cap PO QAM 04/07/22 04/07/22 Unknown History release Exam Exam Date and Time: May 06, 2022 0942 Height,Weight and Vital Signs: Height 5 ft 10 in Weight 95.254 kg Pertinent Lab Results Pertinent Lab Results: Laboratory Tests 11/30/21 11/30/21 12:18 12:18 WBC 14.3 H Hgb 16.1 Hct 47.1 Plt Count 232 Sodium 138 Potassium 4.1 Chloride 104 Carbon Dioxide 27 BUN 18 H Creatinine 0.85 Narrative Narrative: EKG 01/2022 normal sinus rhythm, incomplete right bundle-branch block, no change from prior EKG, rate 79 Exercise stress test done 12/24/2021 showing good exercise capacity, moderate shortness of breath, no chest discomfort, isolated PACs and PVCs and no EKG changes of ischemia.? Echocardiogram done 01/01/2022 showing EF 59%, mild LVH, no regional wall motion abnormalities.? His discomfort is atypical and not suggestive of angina.? Assessment and Plan Assessment Anesthesia Assessment: Chart Reviewed Final Anesthetic Review History of Problems with Anesthesia: No Documented by User: Nate Maciel MD 05/07/22 13:27 [facility] Past Medical History Medical History (Updated 04/06/22 @ 19:52 by Kajal Montejo RN) COPD (chronic obstructive pulmonary disease) Elevated AFP Elevated cholesterol GERD (gastroesophageal reflux disease) H. pylori infection History of depression History of diverticulitis Palpitations Personal history of nicotine dependence Pulmonary nodules Family History Family History Father No problems noted. Mother Lung cancer Family history of problems with anesthesia: Yes (Cardiac arrest in brother during surgery ) Surgical History Surgical History (Updated 04/07/22 @ 13:00 by Maribell Andrea RN) History of esophagogastroduodenoscopy (EGD) Hx of basal cell carcinoma excision Hx of colonoscopy Social History Social History Alcohol intake: current Alcohol intake frequency: does not drink Patient Tobacco Use Status: Former Tobacco user Quit Date: 2016 Cigarettes Per Day: 15 Years Smoked: 37 Smoked in Last 30 Days: No Use of substances other than those prescribed or required for medical reasons: Yes Substance Use Frequency: Daily Are you DNR?: Yes Advance Directives: No Advance Directives Information Provided: No Advance Directives on File: No Recently lost weight without trying: No Nutrition Risks: No Nutritional Risk Meds Allergies Allergy/AdvReac Type Severity Reaction Status Date / Time temazepam [TEMAZEPAM] Allergy Unknown SLEEPWALKIN Verified 04/07/22 13:00 G feathers Allergy Hives Verified 04/06/22 19:47 From BENADRYL Allergy Unknown TWITCHING Uncoded 04/07/22 13:00 Home Medications Medication Instructions Recorded Confirmed Last Taken Type aripiprazole 2 mg tablet 4 mg PO DAILY 11/27/21 04/06/22 Unknown History aspirin 81 mg tablet,delayed 81 mg PO DAILY 11/27/21 04/06/22 Unknown History release (Adult Low Dose Aspirin) citalopram 20 mg tablet 20 mg PO DAILY 11/27/21 04/06/22 Unknown History multivitamin 1 tab PO DAILY 11/27/21 04/06/22 Unknown History atorvastatin 10 mg tablet 1 tab PO DAILY 04/06/22 04/07/22 Unknown History omeprazole 40 mg capsule,delayed 1 cap PO QAM 04/07/22 04/07/22 Unknown History release Exam Airway Mallampati Class: III TM Dist: >3cm Neck ROM: Full Loose/Missing/Broken Teeth: Yes (Upper chipped , poor dentition ) Heart: S1,S2 Lungs: b/l breath sounds Assessment and Plan Assessment Anesthesia Assessment: Anesthesia Plan Discussed Final Anesthetic Review Family History of Problems with Anesthesia: Yes (Cardiac arrest in brother during surgery ) NPO: Yes ASA Class: III Final Preanesthetic Review: Meds/Allgs Chart Reviewed, Consent Obtained/Reviewed and Anes Risks/Benef Reviewed Patient Risk: Intermediate Procedure Risk: Intermediate Anesthetic Plan Anesthetic Plan: MAC: Disposition: Standard PACU
[2022-05-07 09:10] VITALS: BP 122/77; PULSE 75; RESP 16; TEMP 36.4; O2SAT 93
[2022-05-07] MEDS: Lactated Ringers 1,000 ML 100 ML IVCONT (09:21)
--- NOTE | 2022-05-07 10:15 | MHC.SHP ---
Pre-Procedural Eval Section A Date of Service: 05/07/22 The patient is an INPATIENT: No Section B Chief Complaint: reflux disease Details of Present Illness: see H&P no changes Relevant Family History (Specify if Yes): No Relevant Social History: None Present Medications: see Short Stay Collaborative assessment Medical History: Significant History Allergies: Allergies Allergy/AdvReac Type Severity Reaction Status Date / Time temazepam [TEMAZEPAM] Allergy Unknown SLEEPWALKIN Verified 04/07/22 13:00 G feathers Allergy Hives Verified 04/06/22 19:47 From BENADRYL Allergy Unknown TWITCHING Uncoded 04/07/22 13:00 Review of Systems Sugical H&P ROS: Negative: Constitution, Cardiovascular, Respiratory, Neurological, Psychiatric, Hem-Onc, Allergic/Immunologic, Gastrointestinal, Genitourinary, Musculoskeletal, Integumentary, Endocrine and Eyes/Ears/Nose/Throat Exam Surgical H&P Exam: Normal: HEENT, Normal: Heart, Normal: Lungs, Normal: Extremities, Normal: Abdomen, Normal: Skin and Normal: Neurological Plan Diagnosis/Plan: Unchanged I have reviewed the history and physical and performed a pertinent physical examination on my patient. No changes have occurred unless specified.
[2022-05-07 10:47] VITALS: BP 104/57; PULSE 89; RESP 16; TEMP 36.3; O2SAT 100
--- NOTE | 2022-05-07 10:53 | PM.OP ---
Brief Operative Note Date of Service: 05/07/22 Pre-op diagnosis: erosive esophagitis Procedure: egd Surgeon: Dylan Castro Anesthesia: MAC Was an Dressmaker Garment Fitter used for this Procedure?: No Estimated blood loss (mL): 2 Pathology: other Condition: stable Disposition: PACU
[2022-05-07 11:02] VITALS: BP 105/67; PULSE 77; RESP 20; TEMP 36.3; O2SAT 96
--- NOTE | 2022-05-07 21:05 | OP_ITS ---
SURGEON: Dylan Castro MD INDICATIONS: Erosive esophagitis. PREOPERATIVE DIAGNOSIS: POSTOPERATIVE DIAGNOSIS: PROCEDURE PERFORMED: ESTIMATED BLOOD LOSS: COMPLICATIONS: ANESTHESIA: ASSISTANTS: SPECIMENS: PROCEDURE: Upper and upper endoscopy with biopsy. MEDICATIONS: Monitored anesthesia care. DESCRIPTION OF PROCEDURE: History and physical performed. The risks and benefits of the procedure were explained to the patient. Informed consent was obtained. The patient was placed in left lateral decubitus position. The Olympus video gastroscope was introduced into the esophagus, stomach, and duodenum. Examination was performed. The scope was removed. He tolerated the procedure well and was taken to recovery area in stable condition. FINDINGS: 1. Esophagus: The esophagus was much improved from his previous examination. There was an irregular EG junction, but no erosive esophagitis. Biopsies were obtained from the EG junction. 2. Stomach: The stomach showed no evidence of masses, ulcers, or polyps. Antral biopsies were obtained. 3. Duodenum: The bulb and second portion were normal. IMPRESSION: Gastroesophageal reflux disease. RECOMMENDATIONS: Follow up the biopsy results. MD DYLON Bryant/MODL / [id number]
== END 2022-05-07 11:55 | disposition home or self-care (01) ==
PROVIDERS: PCP Internal Medicine; Visit Provider Internal Medicine Gastroenterology
PROC: 0DJ08ZZ Inspection of Upper Intestinal Tract, Via Natural or Artificial Opening Endoscopic (ICD-10-PCS; CPT 43235; principal; 2022-05-07 10:00)
DX: K21.00 Gastro-esophageal reflux disease with esophagitis, without bleeding (principal); J44.9 Chronic obstructive pulmonary disease, unspecified; R00.2 Palpitations; Z79.82 Long term (current) use of aspirin; Z79.899 Other long term (current) drug therapy; Z88.8 Allergy status to other drugs, medicaments and biological substances; Z87.891 Personal history of nicotine dependence
CPT/HCPCS: 43239; 88305; 88342

== ENCOUNTER 2022-05-14 10:16 | Outpatient (REF) | payer OTHER, SELFPAY ==
--- NOTE | ~2022-05-14 | CT_ITS ---
EXAMINATION: CT CHEST SCREENING CLINICAL INFORMATION: Nicotine dependence. COMPARISON: None. TECHNIQUE: Multidetector volumetric CT imaging of the chest is performed without contrast using low dose technique. Additional 2D coronal and sagittal reformatted images and axial 3D maximum intensity projection (MIP) images are generated on the CT workstation. This CT examination was performed using dose optimization techniques as appropriate, variously including the following: *Automated exposure control *Adjustment of mA and/or kV according to patient size (this includes techniques or standardized protocols for targeted exams where dose is matched to indication/reason for exam; i.e. extremities or head) *Use of iterative reconstruction technique DLP: 64 mGy-cm FINDINGS: LUNGS: The lungs are well-expanded and clear of acute pneumonic consolidation. There is dependent bibasilar atelectasis. There are multiple calcified nodules/granulomas throughout both lungs. The largest calcified nodule in right upper lobe measures 4 mm on axial image 238/6. MEDIASTINUM: The thyroid lobes are symmetrical and normal. Central trachea and the bronchi widely patent. The heart size and the great vessels are normal caliber. No abnormal size mediastinal or hilar lymph nodes seen. PLEURA: There is no pleural effusion. No pleural mass or thickening. AXILLA: There are no abnormal lymph nodes visualized. UPPER ABDOMEN: Visualized liver, spleen, pancreas and bilateral adrenal glands are unremarkable. OSSEOUS STRUCTURES: No lytic or sclerotic process seen. CT/CT lung screening IMPRESSION: Unremarkable examination. ASSESSMENT: Lung-RADS category 2: Benign RECOMMENDATION: Low-dose annual CT chest.
== END 2022-05-14 10:17 | disposition home or self-care (01) ==
LOC: HO.CT 10:16
PROVIDERS: PCP Internal Medicine; Visit Provider Physician Assistant Medical
DX: Z12.2 Encounter for screening for malignant neoplasm of respiratory organs (principal); F17.210 Nicotine dependence, cigarettes, uncomplicated
CPT/HCPCS: 71271

== ENCOUNTER 2022-05-17 10:55 | Outpatient (REF) | payer OTHER, SELFPAY ==
[2022-05-17 11:49] LABS: Alanine Aminotransferase 39 U/L (0-40); Albumin Level 4.4 g/dL (3.5-5.0); Alkaline Phosphatase 78 U/L (39-117); Aspartate Amino Transferase 32 U/L (5-37); Bilirubin Direct 0.2 mg/dL (0.0-0.5); Cholesterol 133 mg/dL; HDL Cholesterol 27 mg/dL; LDL Cholesterol Calculated 55 mg/dl; Triglycerides 256 mg/dL
[2022-05-17 12:01] LABS: Bilirubin Total 0.3 mg/dL (0.0-1.0)
[2022-05-17 13:28] LABS: Reflex LDLD? No
== END 2022-05-17 10:56 | disposition home or self-care (01) ==
LOC: HO.LNP 10:55
PROVIDERS: Visit Provider Internal Medicine
DX: E78.00 Pure hypercholesterolemia, unspecified (principal)
CPT/HCPCS: 80061; 80076

== ENCOUNTER 2022-10-07 10:33 | Outpatient (REF) | payer BC, SELFPAY ==
[2022-10-07 10:35] LABS: MANUAL DIFF FLAG NO
[2022-10-07 10:49] LABS: Appearance Urine Clear; Color Urine Yellow; Glucose Urine UA Negative (Negative); Leukocyte Esterase Urine Negative (Negative); Nitrite Urine Negative (Negative); PH 5.5 (5.0-9.0); Specific Gravity - Urine >= 1.030 (1.005-1.025); UMIC TRIGGER UA YES; Urine Blood Small (1+) (Negative); Urine Ketones Trace mg/dL (Negative); Urine Protein Negative (Neg-Trace)
[2022-10-07 10:55] LABS: Bacteria Urine None Seen (None Seen); Hyaline Casts Urine 0-2 /LPF (0-2); Squamous Epithelial Cell Urine 0-2 /HPF (0-2); WBC Urine 0-5 /HPF (0-5)
[2022-10-07 10:57] LABS: Basophils Absolute Auto 0.1 X10*3/uL (0.0-0.2); Basophils Percent Auto 0.6 % (0-2); Eosinophils Absolute Auto 0.2 X10*3/uL (0.0-0.4); Eosinophils Percent Auto 2.7 % (0-4); Hematocrit 48.1 % (42.0-52.0); Hemoglobin 16.2 g/dl (14.0-18.0); Imm Gran Abs Auto 0.02 X10*3/uL (0.00-0.03); Imm Gran Pct Auto 0.2 % (0.0-0.4); Lymphocytes Absolute Auto 3.2 X10*3/uL (1.2-4.9); Mean Corpuscular HGB Conc 33.7 g/dl (31.0-36.0); Mean Corpuscular Volume 83.2 fL (80.0-98.0); Mean Platelet Volume 9.6 fL (9.4-12.4); Monocytes Absolute Auto 0.8 X10*3/uL (0.1-1.2); Neutrophils Absolute Auto 4.3 x10*3/uL (2.0-8.3); Neutrophils Percent Auto 50.5 % (45-73); Platelet Count 231 X10*3/uL (160-400); Red Blood Count 5.78 X10*6/uL (4.60-5.80); White Blood Count 8.5 X10*3/uL (4.8-10.8)
[2022-10-07 11:39] LABS: Alanine Aminotransferase 36 U/L (0-40); Albumin Level 4.3 g/dL (3.5-5.0); Alkaline Phosphatase 80 U/L (39-117); Anion Gap 12 (12-20); Aspartate Amino Transferase 29 U/L (5-37); Bilirubin Total 0.4 mg/dL (0.0-1.0); Blood Urea Nitrogen 22 mg/dL (9-16); Calcium 9.4 mg/dL (8.4-10.2); Carbon Dioxide 27 mmol/L (22-29); Chloride 102 mmol/L (96-108); Cholesterol 124 mg/dL; Estimated Glomerular Filt Rate > 60; Glucose Fasting 114 mg/dL (60-99); HDL Cholesterol 25 mg/dL; LDL Cholesterol Calculated 52 mg/dl; PSA,Total (Free>4and<10) 0.26 ng/mL (0.00-4.00); Potassium 4.3 mmol/L (3.3-5.1); Sodium 137 mmol/L (135-145); Total Protein 7.8 g/dL (6.5-8.0); Triglycerides 238 mg/dL
== END 2022-10-07 10:34 | disposition home or self-care (01) ==
LOC: HO.LNP 10:33
PROVIDERS: Visit Provider Internal Medicine
DX: Z00.00 Encounter for general adult medical examination without abnormal findings (principal); D72.820 Lymphocytosis (symptomatic); E78.00 Pure hypercholesterolemia, unspecified; D72.829 Elevated white blood cell count, unspecified
CPT/HCPCS: 80053; 80061; 81001; 84153; 85025

== ENCOUNTER → 2023-01-13 10:35 | Outpatient (BNVA) | payer BC, SELFPAY | PROVIDERS: PCP Internal Medicine; Referring Provider Internal Medicine; Visit Provider Internal Medicine Cardiovascular Disease | DX: E78.5 Hyperlipidemia, unspecified (principal) | CPT/HCPCS: 93005 ==

== ENCOUNTER 2023-03-15 06:30 | Day surgery (SDC) | payer BC, SELFPAY ==
--- NOTE | 2023-03-14 15:00 | HO.ANESPROP2 ---
Documented by User: Marie Luke NP 03/14/23 15:02 HPI - Anesthesia Eval Consult details Narrative: 57yo M for Upper Endoscopy Cardiac optimized per 01/2023 office visit. No further cardiac f/u necessary. [facility] Active Problems Active Problems: All Active Problems (Updated 03/14/23 @ 14:57 by Loly Mccabe RN) Chest discomfort (Acute) Obstructive sleep apnea (Acute) LVH (left ventricular hypertrophy) (Acute) Preop cardiovascular exam (Acute) Personal history of nicotine dependence (Acute) Pulmonary nodules (Acute) Past Medical History Medical History (Updated 03/15/23 @ 06:53 by Jennifer Schuler RN) COPD (chronic obstructive pulmonary disease) Depression Elevated AFP Elevated cholesterol GERD (gastroesophageal reflux disease) H. pylori infection History of depression History of diverticulitis Microscopic hematuria Palpitations Personal history of nicotine dependence Pulmonary nodules Family History Family History Father No problems noted. Mother Lung cancer Family history of problems with anesthesia: Yes (Cardiac arrest in brother during surgery ) Surgical History Surgical History History of esophagogastroduodenoscopy (EGD) Hx of basal cell carcinoma excision Hx of colonoscopy History of Problems with Anesthesia: No Social History Social History Alcohol intake: current Alcohol intake frequency: does not drink Patient Tobacco Use Status: Former Tobacco user Quit Date: 6 months ago Cigarettes Per Day: 15 Years Smoked: 37 Use of substances other than those prescribed or required for medical reasons: Yes Substance Use Type Other:: edible Substance Use Frequency: Daily Are you DNR?: No Advance Directives: No Advance Directives Information Provided: Yes Meds Allergies Allergy/AdvReac Type Severity Reaction Status Date / Time temazepam [TEMAZEPAM] Allergy Unknown SLEEPWALKIN Verified 03/15/23 06:54 G feathers Allergy Hives Verified 03/15/23 06:54 From BENADRYL Allergy Unknown TWITCHING Uncoded 04/07/22 13:00 Home Medications Medication Instructions Recorded Confirmed Last Taken Type multivitamin 1 tab PO DAILY 11/27/21 03/15/23 Unknown History aripiprazole 2 mg tablet 2 mg PO DAILY 01/13/23 03/15/23 Unknown History atorvastatin 10 mg tablet 10 mg PO DAILY 01/13/23 03/15/23 Unknown History omeprazole 40 mg capsule,delayed 20 mg PO QAM 01/13/23 03/15/23 Unknown History release Fish Oil 1,200 mg PO DAILY 03/14/23 03/15/23 Unknown History citalopram 20 mg tablet (Celexa) 20 mg PO DAILY 03/14/23 03/15/23 Unknown History loratadine-pseudoephedrine ER 10 1 tab PO DAILY 03/15/23 03/15/23 Unknown History mg-240 mg tablet,extended [id number] (Claritin-D 24 Hour) melatonin 5 mg tablet 5 mg PO BEDTIME 03/15/23 03/15/23 Unknown History Exam Exam Date and Time: March 14, 2023 1500 Pertinent Lab Results Pertinent Lab Results: Laboratory Tests 10/07/22 10/07/22 08:00 08:00 WBC 8.5 Hgb 16.2 Hct 48.1 Plt Count 231 Sodium 137 Potassium 4.3 Chloride 102 Carbon Dioxide 27 BUN 22 H Creatinine 1.07 Narrative Narrative: EKG 01/2023 normal sinus rhythm with incomplete right bundle-branch block Assessment and Plan Assessment Anesthesia Assessment: Chart Reviewed Final Anesthetic Review Family History of Problems with Anesthesia: Yes (Cardiac arrest in brother during surgery ) History of Problems with Anesthesia: No Documented by User: Nate Maciel MD 03/15/23 17:13 [facility] Past Medical History Medical History (Updated 03/15/23 @ 06:53 by Jennifer Schuler, RN) COPD (chronic obstructive pulmonary disease) Depression Elevated AFP Elevated cholesterol GERD (gastroesophageal reflux disease) H. pylori infection History of depression History of diverticulitis Microscopic hematuria Palpitations Personal history of nicotine dependence Pulmonary nodules Functional capacity: independent ambulation Family History Family History Father No problems noted. Mother Lung cancer Surgical History Surgical History History of esophagogastroduodenoscopy (EGD) Hx of basal cell carcinoma excision Hx of colonoscopy Social History Social History Alcohol intake: current Alcohol intake frequency: does not drink Patient Tobacco Use Status: Former Tobacco user Quit Date: 6 months ago Cigarettes Per Day: 15 Years Smoked: 37 Use of substances other than those prescribed or required for medical reasons: Yes Substance Use Type Other:: edible Substance Use Frequency: Daily Are you DNR?: No Advance Directives: No Advance Directives Information Provided: Yes Meds Allergies Allergy/AdvReac Type Severity Reaction Status Date / Time temazepam [TEMAZEPAM] Allergy Unknown SLEEPWALKIN Verified 03/15/23 06:54 G feathers Allergy Hives Verified 03/15/23 06:54 From BENADRYL Allergy Unknown TWITCHING Uncoded 04/07/22 13:00 Home Medications Medication Instructions Recorded Confirmed Last Taken Type multivitamin 1 tab PO DAILY 11/27/21 03/15/23 Unknown History aripiprazole 2 mg tablet 2 mg PO DAILY 01/13/23 03/15/23 Unknown History atorvastatin 10 mg tablet 10 mg PO DAILY 01/13/23 03/15/23 Unknown History omeprazole 40 mg capsule,delayed 20 mg PO QAM 01/13/23 03/15/23 Unknown History release Fish Oil 1,200 mg PO DAILY 03/14/23 03/15/23 Unknown History citalopram 20 mg tablet (Celexa) 20 mg PO DAILY 03/14/23 03/15/23 Unknown History loratadine-pseudoephedrine ER 10 1 tab PO DAILY 03/15/23 03/15/23 Unknown History mg-240 mg tablet,extended [id number] (Claritin-D 24 Hour) melatonin 5 mg tablet 5 mg PO BEDTIME 03/15/23 03/15/23 Unknown History Exam Airway Mallampati Class: IV TM Dist: >3cm Neck ROM: Full Loose/Missing/Broken Teeth: Yes (loose molar , fillings ) Assessment and Plan Assessment Anesthesia Assessment: Anesthesia Plan Discussed Final Anesthetic Review NPO: Yes ASA Class: III Final Preanesthetic Review: Meds/Allgs Chart Reviewed, Consent Obtained/Reviewed and Anes Risks/Benef Reviewed Patient Risk: Intermediate Procedure Risk: Intermediate Anesthetic Plan Anesthetic Plan: MAC: Disposition: Standard PACU
--- OUTSIDE RECORDS SUMMARY | 2023-03-15 06:32 | XMS_ITS ---
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 Role Phone Matthew Marcos Dylan Unavailable PROBLEMS Type Condition ICD9-CM Code PHX46-MI Code Onset Dates Condition Status SNOMED Code Problem Encounter for other preprocedural examination Z01.818 Active 979314165 Problem Gastric intestinal metaplasia K31.A0 Active Problem Gastroesophageal reflux disease with esophagitis without hemorrhage K21.00 Active Problem Colon cancer screening Z12.11 Active [id number] 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 Active 664899845 Problem Other dysphagia R13.19 Active 38703604 Problem Ab[address] CT scan, esophagus R93.3 Active ALLERGIES Substance Reaction Event Type Date Status Temazepam Unknown Drug Allergy Jan, Active Dyphylline-Guaifenesin Unknown Drug Allergy Jan, Active ENCOUNTERS Encounter Location Date Diagnosis [facility] [address], [place] [id number] March, [facility] [address] [place] [phone] Jan, Gastroesophageal reflux disease with esophagitis without hemorrhage K21.00 and Gastric intestinal metaplasia K31.A0 [facility] [address] [place] [phone] Nov, [facility] [address] [place] [phone] Sep, [facility] [address] [place] [phone] Sep, [facility] [address] [place] [phone] Jul, [facility] [address] [place] [phone] May, [facility] [address] [place] [id number] May, Esophagitis K20.90 [facility] [address] [place] [phone] Apr, [facility] [address] [place] [phone] Jan, [facility] [address] [place] [phone] Jan, [facility] [address] [place] [phone] Jan, [facility] [address], [place] [phone] Jan, Abnormal CT scan, esophagus R93.3 [facility] [address] [place] [phone] Dec, [facility] [address] [place] [phone] Dec, Abnormal CT scan, esophagus R93.3 ; Other dysphagia R13.19 and 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 [facility] [address] [place] [id number] Dec, Colon cancer screening Z12.11 [facility] [address] [place] [phone] Sep, Encounter for other preprocedural examination Z01.818 and Colon cancer screening Z12.11 [facility] [address] [place] [phone] Jul, IMMUNIZATIONS Vaccine Route Administration Date Status Influenza Unknown Aug 24, 2022 Administered Influenza Unknown Oct 07, 2021 Administered Influenza Unknown Aug 07, 2019 Administered SOCIAL HISTORY Qualifiers Date Former Smoker REASON FOR REFERRAL FUNCTIONAL STATUS PLAN OF CARE Activity Details VITAL SIGNS Weight 213 lbs 2023-01-31 Weight 210 lbs 2021-12-23 Weight 195 lbs 2019-09-26 Height 70 in 2023-01-31 Height 70 in 2021-12-23 Height 70 in 2019-09-26 BMI 30.56 kg/m2 2023-01-31 BMI 30.13 kg/m2 2021-12-23 BMI 27.98 kg/m2 2019-09-26 Heart Rate 76 /min 2019-09-26 Temperature 97.8 degrees Fahrenheit Temperature 97.5 degrees Fahrenheit Blood pressure systolic 000 mm Hg Blood pressure diastolic 00 mm Hg 2023-01 MEDICATIONS Medication Instructions Dosage Frequency Start Date End Date Duration Status Aspirin 81 Activ e Omeprazole 20 MG TAKE 1 CAPSULE BY MOUTH DAILY 30 MINUTES BEFORE MORNING MEAL 30 Active Atorvastatin Calcium 10 MG Orally Once a day 1 tablet 24h 30 day(s) Active Multivitamin Adults Active Abilify 2 MG Orally Once a day 2 tablet 24h Active Fish Oil Active CeleXA 20 MG Orally Once a day 1 tablet 24h Active Claritin Active PROCEDURES Procedure Date Ordered Result Body Site Pt scrn tbco id as non user Dec 23, 2021 DOC MEDS VERIFIED W/PT OR RE Dec 23, 2021 DOC MEDS VERIFIED W/PT OR RE January 31, 2023 COLORECTAL CA SCREEN DOC REV January 31, 2023 COLORECTAL CA SCREEN DOC REV Dec 23, 2021 DOC RSN FOR NOT SCREEN/REC F/U HBP January 31, 2023 UPPER GI ENDOSCOPY, BIOPSY May 07, 2022 DOC RSN FOR NOT SCREEN/REC F/U HBP Dec 23, 2021 UPPER GI ENDOSCOPY, BIOPSY January 22, 2022 Pt scrn tbco id as non user January 31, 2023 DIAGNOSTIC COLONOSCOPY Dec 26, 2019 RESULTS Name Result Date Reference Range Pathology 2022-05-07 Pathology 2022-01-22 REASON FOR VISIT gerd, gastric intestinal metaplasia, Patient presents today for erosive esophagitis, Pt no show, Patient presents today for erosive esophagitis, please double check id number and , PLEASE SEE IF THE PATIENT HAS A NEW INSURANCE, pathology, erosive esophagitis, erosive esophagitis, EGD, omeprazolerx, pathology, abn ct scan ,esophagus, Patient presents today for a pancreatic leasion/having MRCP,screening colon, PATIENT PRESENTS TODAY FOR colonoscopy screening, colonoscopy screening, R/S OV Insurance Providers Health Insurance Type Health Plan Insurance Address Health Plan Insurance Phone Health Plan Insurance Name Health Plan Coverage Dates Member ID Patient Relationship to Subscriber Patient Address Patient Phone Patient Name Patient Date of Subscriber ID Subscriber Name Subscriber Date of Group No HMO BLUE [employer] PROF[employer] [place] CLAIMS [address] [facility] [phone] HMO BLUE self MARYCARMEN WARD [id number] HMO BLUE [employer] PROFESSION AL CLAIMS [address] [facility] [phone] O BLUE self MARYCARMEN WARD [id number] [phone] [facility] [address] [address] [facility] [id number] [facility] Plan self MARYCARMEN WARD [id number]
[2023-03-15 06:57] VITALS: BMI 31.3
--- NOTE | 2023-03-15 07:20 | MHC.SHP ---
Pre-Procedural Eval Section A Date of Service: 03/15/23 Section B Chief Complaint: Gastric intestinal metaplasia,reflux disease Details of Present Illness: see H&P no changes Relevant Family History (Specify if Yes): No Relevant Social History: None Present Medications: see Short Stay Collaborative assessment Medical History: No relevant PMH History of Previous Operations: No relevant previous surgery Allergies: Allergies Allergy/AdvReac Type Severity Reaction Status Date / Time temazepam [TEMAZEPAM] Allergy Unknown SLEEPWALKIN Verified 03/15/23 06:54 G feathers Allergy Hives Verified 03/15/23 06:54 From BENADRYL Allergy Unknown TWITCHING Uncoded 04/07/22 13:00 Review of Systems Sugical H&P ROS: Negative: Constitution, Cardiovascular, Respiratory, Neurological, Psychiatric, Hem-Onc, Allergic/Immunologic, Gastrointestinal, Genitourinary, Musculoskeletal, Integumentary, Endocrine and Eyes/Ears/Nose/Throat Exam Surgical H&P Exam: Normal: HEENT, Normal: Heart, Normal: Lungs, Normal: Extremities, Normal: Abdomen, Normal: Skin and Normal: Neurological Plan Diagnosis/Plan: Unchanged I have reviewed the history and physical and performed a pertinent physical examination on my patient. No changes have occurred unless specified. Time Spent With Patient Time: Total time managing care of this patient today ____ minutes.
[2023-03-15 07:27] VITALS: BP 123/78; PULSE 72; RESP 16; TEMP 36.1; O2SAT 93
[2023-03-15] MEDS: Lactated Ringers 1,000 ML 100 ML IVCONT (07:32)
--- NOTE | 2023-03-15 08:10 | PM.OP ---
Brief Operative Note Date of Service: 03/15/23 Pre-op diagnosis: gastric intestinal metaplasia gerd Post-op diagnosis: same Procedure: egd Surgeon: Dylan Castro Anesthesia: MAC Was an Chief Electrician used for this Procedure?: No Estimated blood loss (mL): 3 Pathology: other Condition: stable Disposition: PACU
[2023-03-15 08:11] VITALS: BP 127/67; PULSE 91; RESP 16; TEMP 37.1; O2SAT 94
[2023-03-15 08:26] VITALS: BP 125/74; PULSE 85; RESP 16; TEMP 37.1; O2SAT 97
--- NOTE | 2023-03-15 08:42 | OP_ITS ---
DATE OF SERVICE: 03/15/2023 SURGEON: Dylan Castro MD INDICATIONS: Gastric intestinal metaplasia and gastroesophageal reflux disease. PREOPERATIVE DIAGNOSIS: POSTOPERATIVE DIAGNOSIS: PROCEDURE PERFORMED: Upper endoscopy with biopsy. ESTIMATED BLOOD LOSS: COMPLICATIONS: ANESTHESIA: Monitored anesthesia care. ASSISTANTS: SPECIMENS: DESCRIPTION OF PROCEDURE: History and physical performed. The risks and benefits of the procedure were explained to the patient. Informed consent was obtained. The patient was placed in the left lateral decubitus position. The Olympus video gastroscope was introduced into the esophagus, stomach, and duodenum. Examination was performed. The scope was removed. He tolerated the procedure well and was taken to recovery in stable condition. FINDINGS: Esophagus, the esophagus was normal. There was an irregular EG junction. Stomach: The stomach showed no evidence of masses, ulcers, or polyps. There was some retained food and liquid material in the stomach, which was washed and suctioned as best possible. Biopsies were obtained from the antrum on the lesser curvature and greater curvature, from the angularis and from the body on the greater and lesser curvature as well for gastric mapping. There was no evidence of malignancy. Duodenum: The bulb and 2nd portion were normal. IMPRESSION: 1. Gastric intestinal metaplasia. 2. Gastroesophageal reflux disease. RECOMMENDATION: 1. Continue omeprazole. 2. Follow up the biopsy results. MD DYLON Bryant/TAN / [id number]
== END 2023-03-15 08:57 | disposition home or self-care (01) ==
PROVIDERS: PCP Internal Medicine; Visit Provider Internal Medicine Gastroenterology
PROC: 0DJ08ZZ Inspection of Upper Intestinal Tract, Via Natural or Artificial Opening Endoscopic (ICD-10-PCS; CPT 43235; principal; 2023-03-15 07:30)
DX: K31.A0 Gastric intestinal metaplasia, unspecified (principal); K21.9 Gastro-esophageal reflux disease without esophagitis; R00.2 Palpitations; J44.9 Chronic obstructive pulmonary disease, unspecified; F32.A Depression, unspecified; Z79.82 Long term (current) use of aspirin; Z85.828 Personal history of other malignant neoplasm of skin; Z79.899 Other long term (current) drug therapy; Z88.8 Allergy status to other drugs, medicaments and biological substances; Z87.891 Personal history of nicotine dependence
CPT/HCPCS: 43239; 88305; 88342

== ENCOUNTER 2023-10-11 11:29 | Outpatient (REF) | payer BC, SELFPAY ==
[2023-10-11 11:33] LABS: MANUAL DIFF FLAG NO
[2023-10-11 11:52] LABS: Basophils Percent Auto 0.5 % (0-2); Eosinophils Absolute Auto 0.3 X10*3/uL (0.0-0.4); Eosinophils Percent Auto 3.9 % (0-4); Hematocrit 46.9 % (42.0-52.0); Hemoglobin 15.5 g/dl (14.0-18.0); Imm Gran Abs Auto 0.01 X10*3/uL (0.00-0.03); Imm Gran Pct Auto 0.1 % (0.0-0.4); Lymphocytes Percent Auto 36.1 % (20-40); Mean Corpuscular Hemoglobin 28.2 pg (27.0-33.0); Mean Corpuscular Volume 85.4 fL (80.0-98.0); Mean Platelet Volume 9.4 fL (9.4-12.4); Monocytes Absolute Auto 0.6 X10*3/uL (0.1-1.2); Monocytes Percent Auto 7.2 % (2-11); Neutrophils Absolute Auto 4.3 x10*3/uL (2.0-8.3); Neutrophils Percent Auto 52.2 % (45-73); Platelet Count 227 X10*3/uL (160-400); Red Blood Count 5.49 X10*6/uL (4.60-5.80); Red Cell Distribution Width 13.5 % (11.0-16.0); White Blood Count 8.3 X10*3/uL (4.8-10.8)
[2023-10-11 11:55] LABS: Appearance Urine Clear; Color Urine Yellow; Glucose Urine UA Negative (Negative); Leukocyte Esterase Urine Negative (Negative); Nitrite Urine Negative (Negative); PH 5.5 (5.0-9.0); Specific Gravity - Urine 1.025 (1.005-1.025); UMIC TRIGGER UACC YES; Urine Blood Moderate (2+) (Negative); Urine Ketones Negative (Negative); Urine Protein Negative (Neg-Trace)
[2023-10-11 12:03] LABS: Bacteria Urine None Seen (None Seen); Hyaline Casts Urine 0-2 /LPF (0-2); Squamous Epithelial Cell Urine 0-2 /HPF (0-2); WBC Urine 0-5 /HPF (0-5)
[2023-10-11 12:28] LABS: PSA,Total (Free>4and<10) 0.17 ng/mL (0.00-4.00)
[2023-10-11 13:13] LABS: Alanine Aminotransferase 27 U/L (0-40); Albumin Level 4.2 g/dL (3.5-5.0); Alkaline Phosphatase 69 U/L (39-117); Anion Gap 14 (12-20); Aspartate Amino Transferase 28 U/L (5-37); Bilirubin Total 0.4 mg/dL (0.0-1.0); Blood Urea Nitrogen 21 mg/dL (9-16); Calcium 9.3 mg/dL (8.4-10.2); Carbon Dioxide 26 mmol/L (22-29); Chloride 104 mmol/L (96-108); Cholesterol 141 mg/dL (<200); Estimated Glomerular Filt Rate > 60; Glucose Fasting 121 mg/dL (60-99); HDL Cholesterol 29 mg/dL (>40); LDL Cholesterol Calculated 88 mg/dL (<100); Sodium 140 mmol/L (135-145); Triglycerides 120 mg/dL (<150)
== END 2023-10-11 11:30 | disposition home or self-care (01) ==
LOC: HO.LNP 11:29
PROVIDERS: Visit Provider Internal Medicine
DX: Z00.00 Encounter for general adult medical examination without abnormal findings (principal); Z12.5 Encounter for screening for malignant neoplasm of prostate; E78.00 Pure hypercholesterolemia, unspecified; D72.820 Lymphocytosis (symptomatic)
CPT/HCPCS: 80053; 80061; 81001; 84153; 85025

== ENCOUNTER 2023-10-20 08:08 | Outpatient (REF) | payer BC, SELFPAY ==
--- NOTE | ~2023-10-20 | CT_ITS ---
EXAMINATION: CT CHEST SCREENING CLINICAL INFORMATION: Nicotine dependence. COMPARISON: 05/14/2022. TECHNIQUE: Multidetector volumetric CT imaging of the chest is performed without contrast using low-dose technique. Additional 2-D coronal and sagittal reformatted images and axial 3-D maximum intensity projection (MIP) images are generated on the CT workstation. This CT examination was performed using dose optimization techniques as appropriate, variously including the following: *Automated exposure control *Adjustment of mA and/or kV according to patient size (this includes techniques or standardized protocols for targeted exams where dose is matched to indication/reason for exam; i.e. extremities or head) *Use of iterative reconstruction technique DLP: 81 mGy-cm FINDINGS: LUNGS: Scattered calcified pulmonary granulomas are again seen and unchanged, the largest measuring 4 mm in the right middle lobe (5:262). No suspicious lung nodules or infiltrates are seen. Again noted is mild dependent atelectasis. MEDIASTINUM: The thyroid is unremarkable. No mediastinal or hilar lymphadenopathy seen. No aortic aneurysm. Heart size is normal. No significant coronary calcium. PLEURA: There is no pleural effusion. No pleural mass or thickening. AXILLA: There are no abnormal lymph nodes visualized. UPPER ABDOMEN: There is decreased attenuation of the liver compared with the spleen consistent with hepatic steatosis, unchanged from prior. OSSEOUS STRUCTURES: No lytic or sclerotic process seen. CT/CT lung screening IMPRESSION: Unremarkable examination. ASSESSMENT: Lung-RADS category 2: Benign. RECOMMENDATION: Low-dose annual CT chest.
== END 2023-10-20 08:09 | disposition home or self-care (01) ==
LOC: HO.CT 08:08
PROVIDERS: PCP Internal Medicine; Visit Provider Physician Assistant Medical
DX: Z12.2 Encounter for screening for malignant neoplasm of respiratory organs (principal); F17.210 Nicotine dependence, cigarettes, uncomplicated
CPT/HCPCS: 71271

== ENCOUNTER 2023-12-19 09:47 | Outpatient (REF) | payer BC, SELFPAY ==
[2023-12-19 17:05] LABS: Urine Cytology See Pathology rpt
== END 2023-12-19 09:48 | disposition home or self-care (01) ==
LOC: HO.LAB 09:47
PROVIDERS: PCP Internal Medicine; Visit Provider Nurse Practitioner Family
DX: N39.0 Urinary tract infection, site not specified (principal); R31.29 Other microscopic hematuria
CPT/HCPCS: 81003; 88112

== ENCOUNTER 2023-12-19 09:47 | Outpatient (AMB) | payer BC, SELFPAY ==
--- NOTE | 2023-12-19 09:59 | MHC.OFFVIS ---
Intake Intake Visit Reasons: Hematuria Intake Note: New Patient presents for initial visit for Hematuria Urology Medications: none Blood Thinner: none Smoker: Yes Patient stated he is in a process of quitting smoking. He also stated he does not see any visible blood in the urine and denies any pain. 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 Accompanied by: Self / Same As Patient Allergies temazepam [TEMAZEPAM] Allergy (Unknown, Verified 12/19/23 10:38) SLEEPWALKING feathers Allergy (Verified 12/19/23 10:38) Hives From BENADRYL Allergy (Unknown, Uncoded 12/19/23 10:38) TWITCHING Medication List - Last Reconciled 12/19/23 by ACOSTA DoveP- aripiprazole 2 mg PO DAILY atorvastatin 10 mg PO DAILY citalopram (Celexa) 20 mg PO DAILY [Fish Oil 1,200 mg PO DAILY] loratadine-pseudoephedrine 10-240 mg ER (Claritin-D 24 Hour) 1 tab PO DAILY melatonin 5 mg PO BEDTIME multivitamin 1 tab PO DAILY omeprazole 20 mg PO QAM HPI HPI Comments History of Present Illness Details Braulio Woo is a very pleasant 58-year-old male patient of Dr. Hay. He has a past medical history of microscopic hematuria, depression, H pylori, GERD, COPD, hypercholesteremia, diverticulitis, nicotine dependence, and pulmonary nodules. He presents to the office today as a new patient for microscopic hematuria. In discussion with the patient today he reports to be doing and feeling well. He reports following up here a few years ago with Dr. Stoner for a history of microscopic hematuria in the setting of nicotine dependence. He reports previous workup with in office cystoscopy at which time he was told microscopic hematuria was related to his prostate. When asked he otherwise denies any bothersome urinary issues or concerns. He denies urinary urgency, urinary frequency, incontinence, nocturia, hematuria, dysuria, foul smelling urine, changes to urinary stream, flank pain, fever, and or chills. He is happy with his current voiding parameters. Discussed at length potential causes of microscopic hematuria. In office urinalysis results reviewed with the patient today 2+ microscopic hematuria noted. He otherwise offers no other issues or concerns at this time. In review of patient's chart it appears PSA 10/29--0.2 PFSH Medical History (Updated 12/19/23 @ 10:11 by Alessia Quinn [facility]) Microscopic hematuria Depression H. pylori infection GERD (gastroesophageal reflux disease) COPD (chronic obstructive pulmonary disease) Elevated cholesterol Elevated AFP History of diverticulitis History of depression Palpitations Personal history of nicotine dependence Pulmonary nodules Surgical History History of esophagogastroduodenoscopy (EGD) Hx of basal cell carcinoma excision Hx of colonoscopy Family History Father No problems noted. Mother Lung cancer Social History Alcohol intake: current Alcohol intake frequency: does not drink Patient Tobacco Use Status: Former Tobacco user Quit Date: 6 months ago Cigarettes Per Day: 15 Years Smoked: 37 Review of Systems Eyes Reports no additional complaints ENT Reports no additional complaints Card Reports as per HPI Resp Reports as per HPI GI Reports as per HPI Reports as per HPI Musc Reports no additional complaints Neuro Reports no additional complaints Psych Reports as per HPI Endo Reports no additional complaints Waldemar/Lymph Reports no additional complaints Aller/Immun Reports no additional complaints Physical Exam Const General: cooperative, healthy appearing, comfortable, no acute distress, well developed, alert and awake Orientation/consciousness: patient oriented x3 Limitations: no limitations HEENT Head: Yes normal to inspection, Yes normocephalic and Yes atraumatic Ears: hearing grossly normal bilaterally Eyes General: appearance normal, both eyes and all related structures Neck Neck: Yes normal visual inspection and Yes trachea midline Chest Chest palpation & inspection: normal inspection of the chest Resp Effort & Inspection: normal respiratory effort and able to speak in complete sentences Cardio Rate: regular rate GI Inspection: Yes normal to inspection General: Yes no CVA tenderness Back/Spine/Pelvis Back: no CVA tenderness Skin General skin exam: no rashes or lesions noted Neuro General: patient oriented x3 Extrem General: Yes normal to inspection Psych Appearance: grossly normal and well kempt Mental Status: mental status grossly normal Speech and movement: Normal speech and movement present and Clear speech present Affect: normal affect Attitude: cooperative Thought process: Normal thought process present Thought content: Normal thought content present Insight: Fair insight present (Psych) Judgement: Fair judgement present (Psych) Results AMB Urinalysis, Automated UA Leukoctes 0 Gwen/uL Last Edit by [facility], [facility] on 12/19/23 10:10 UA Nitrite Negative Last Edit by [facility], [facility] on 12/19/23 10:10 UA Urobilinogen 0.2 mg/dL Last Edit by [facility], [facility] on 12/19/23 10:10 UA Protein 0 mg/dL Last Edit by [facility], [facility] on 12/19/23 10:10 UA pH 5.5 Last Edit by [facility], [facility] on 12/19/23 10:10 UA Blood 80 Pawel/uL Last Edit by [facility], [facility] on 12/19/23 10:10 UA Specific [place] 1.025 Last Edit by [facility], [facility] on 12/19/23 10:10 UA Ketone Negative Last Edit by [facility], [facility] on 12/19/23 10:10 UA Bilirubin 0 mg/dL Last Edit by [facility], [facility] on 12/19/23 10:10 UA Glucose 0 mg/dL Last Edit by [facility], [facility] on 12/19/23 10:10 Results Reviewed Results Reviewed: Laboratory Last Values Urine pH (Auto) 5.5 12/19/23 10:03 Specific [place] (Auto) 1.025 12/19/23 10:03 Urine Protein (Auto) 0 mg/dL 12/19/23 10:03 Glucose (UA)(Auto) 0 mg/dL 12/19/23 10:03 Urine Ketones (Auto) Negative 12/19/23 10:03 Urine Blood (Auto) 80 Pawel/uL 12/19/23 10:03 Urine Nitrite (Auto) Negative 12/19/23 10:03 Urine Bilirubin (Auto) 0 mg/dL 12/19/23 10:03 Urine Urobilinogen (Auto) 0.2 mg/dL 12/19/23 10:03 Leukocyte Esterase (Auto) 0 Gwen/uL 12/19/23 10:03 Assessment & Plan Assessment & Plan (1) Microscopic hematuria: Code(s): R31.29 - Other microscopic hematuria (2) Personal history of nicotine dependence: Comment: (onset 15yo, 1.5ppd x37yrs, 50+PYH - quit 10/15/2020, +fam hx lung ca) Code(s): Z87.891 - Personal history of nicotine dependence Plan In office urinalysis results reviewed with the patient today; as noted above; will send for urine cytology. Discussed at length potential causes of microscopic hematuria; discussed risks and benefits of surveillance monitoring verses further workup; discussed risks and benefits of these interventions at length He currently denies any bothersome urinary issues or concerns. He is happy with his current voiding parameters. Will obtain CT urogram for further assessment evaluation. BUN and creatinine ordered for imaging. Discussed, educated, and stressed the importance of limiting/quitting smoking for overall health and well-being. Patient does not wish to undergo an office cystoscopy at this time however will undergo CT Follow-up in 1-2 months with imaging and labs to be completed prior; or sooner with any issues, concerns, and or questions. Orders: Orders AMB Urinalysis Automated Today R33.9 - Retention of urine, unspecified Urine Cytology Today N39.0 - Urinary tract infection, site not specified, R31.9 - Hematuria, unspecified, T86.898 - Other complications of other transplanted tissue, Z01.810 - Encounter for preprocedural cardiovascular examination Blood Urea Nitrogen Today R31.29 - Other microscopic hematuria, Z87.891 - Personal history of nicotine dependence Creatinine Today R31.29 - Other microscopic hematuria, Z87.891 - Personal history of nicotine dependence CT urogram Today R31.29 - Other microscopic hematuria, Z87.891 - Personal history of nicotine dependence Patient Instructions: The patient had an opportunity to ask questions regarding the treatment plan. All questions were answered. Physical exam, labs, and imaging were discussed and reviewed in detail. As well as risks, benefits, and discussion of treatment choices. No major barriers to understanding were identified. The patient expressed understanding and agreement with the above treatment plan. The patient was made aware they should contact our office by phone for worsening of their current condition, the appearance of new symptoms, or with any questions or concerns. Compliance is encouraged with any medications and follow up testing that is ordered. It is a privilege to be allowed the opportunity to participate in? your urological care.? Again, if you have any questions or concerns If you have any questions or concerns please do not hesitate to contact me. The office is [phone]. This note is constructed using voice recognition software. While every effort has been made to ensure accuracy wash worker errors may have been included. Yours sincerely, NADEEM Dove-DYLON Coding Level of Care Code New Pt Level 3 (45565) Diagnoses Microscopic hematuria R31.29 Personal history of nicotine dependence Z87.891
== END 2023-12-19 10:14 | disposition home or self-care (01) ==
PROVIDERS: PCP Internal Medicine; Visit Provider Nurse Practitioner Family
DX: R31.29 Other microscopic hematuria (principal); Z87.891 Personal history of nicotine dependence; R33.9 Retention of urine, unspecified
CPT/HCPCS: 99203

== ENCOUNTER 2024-04-10 11:21 | Outpatient (REF) | payer BC, SELFPAY ==
[2024-04-10 12:44] LABS: Alanine Aminotransferase 33 U/L (0-40); Albumin Level 4.4 g/dL (3.5-5.0); Alkaline Phosphatase 70 U/L (39-117); Aspartate Amino Transferase 31 U/L (5-37); Bilirubin Direct 0.2 mg/dL (0.0-0.5); Bilirubin Total 0.5 mg/dL (0.0-1.0); Cholesterol 143 mg/dL (<200); HDL Cholesterol 30 mg/dL (>40); LDL Cholesterol Calculated 91 mg/dL (<100); Total Protein 8.1 g/dL (6.5-8.0); Triglycerides 110 mg/dL (<150)
[2024-04-10 14:26] LABS: Reflex LDLD? No
== END 2024-04-10 11:22 | disposition home or self-care (01) ==
LOC: HO.LNP 11:21
PROVIDERS: Visit Provider Internal Medicine
DX: E78.00 Pure hypercholesterolemia, unspecified (principal)
CPT/HCPCS: 80061; 80076

== ENCOUNTER 2024-05-25 07:46 | Outpatient (REF) | payer BC, SELFPAY ==
--- NOTE | ~2024-05-25 | CT_ITS ---
EXAMINATION: CT ABDOMEN AND PELVIS WITHOUT AND WITH CONTRAST CLINICAL INFORMATION: History of smoking. Microscopic hematuria. COMPARISON: CT scans dating between November 30, 2021 and August 15, 2009. TECHNIQUE: Noncontrast CT of the abdomen and pelvis is performed followed by split bolus contrast-enhanced images using 85 mL Omnipaque 350 contrast. Postcontrast imaging is performed during the combined nephrogram and excretion phase. Sagittal and coronal reformatted images were obtained on the technologist's workstation for both the precontrast and postcontrast phases. This CT examination was performed using dose optimization techniques as appropriate, variously including the following: *Automated exposure control *Adjustment of mA and/or kV according to patient size (this includes techniques or standardized protocols for targeted exams where dose is matched to indication/reason for exam; i.e. extremities or head) *Use of iterative reconstruction technique DLP: Clinical data 28 mGy-cm FINDINGS: LUNG BASES: The lung bases appear clear, with no evidence of inflammation or nodules. LIVER, GALLBLADDER, AND BILIARY TREE: Mild fatty infiltration of the liver. The liver appears unremarkable in size and shape. No focal hepatic lesion or biliary ductal dilatation is appreciated. Unremarkable appearance of the gallbladder. PANCREAS: Unremarkable SPLEEN: Unremarkable ADRENAL GLANDS: Unremarkable KIDNEYS AND URETERS: Normal variant lobulation. Approximately 1.8 cm or less benign bilateral simple renal cysts for which no further dedicated follow-up imaging as indicated. Renal cyst for which no further dedicated follow-up imaging as indicated. The kidneys otherwise appear unremarkable in size, shape, and attenuation. No hydronephrosis, hydroureter, or calculi seen. BLADDER: Unremarkable GASTROINTESTINAL TRACT: Less than 2 cm diverticulum involving the third portion of the duodenum, without evidence of associated inflammation. Diverticulosis predominantly involving the sigmoid and descending colon, without evidence of diverticulitis. Normal-appearing distal ileum and vermiform appendix. ABDOMINAL WALL: No significant hernia is appreciated. LYMPH NODES: No evidence of adenopathy by size criteria. VASCULAR: Unremarkable PELVIC VISCERA: Unremarkable OSSEOUS STRUCTURES: Unremarkable CT/CT urogram IMPRESSION: No suspicious radiographic finding. Electronically signed by: Benitez Hernandez MD 07/12/2024 05:06 PM EDT
[2024-05-25 09:24] LABS: Blood Urea Nitrogen 19 mg/dL (9-16); Estimated Glomerular Filt Rate > 60
[2024-05-25] MEDS: iohexoL 350 MG/ML 75 ML INFUS..BTL 85 ML IV (09:38)
[2024-05-29 09:00] LABS: Creatinine POC 0.9 mg/dL (0.5-1.4); GFR POC > 60
== END 2024-05-25 07:47 | disposition home or self-care (01) ==
LOC: HO.CT 07:46
PROVIDERS: PCP Internal Medicine; Visit Provider Nurse Practitioner Family
DX: R31.29 Other microscopic hematuria (principal); Z87.891 Personal history of nicotine dependence
CPT/HCPCS: 36415; 74178; 82565; 84520; Q9967

== ENCOUNTER 2024-10-15 11:15 | Outpatient (REF) | payer OTHER, SELFPAY ==
[2024-10-15 11:18] LABS: MANUAL DIFF FLAG NO
[2024-10-15 11:31] LABS: Appearance Urine Clear; Basophils Absolute Auto 0.1 X10*3/uL (0.0-0.2); Basophils Percent Auto 0.6 % (0-2); Color Urine Yellow; Eosinophils Absolute Auto 0.3 X10*3/uL (0.0-0.4); Eosinophils Percent Auto 3.2 % (0-4); Glucose Urine UA Negative (Negative); Hematocrit 49.3 % (42.0-52.0); Hemoglobin 16.7 g/dl (14.0-18.0); Imm Gran Abs Auto 0.04 X10*3/uL (0.00-0.03); Imm Gran Pct Auto 0.5 % (0.0-0.4); Leukocyte Esterase Urine Negative (Negative); Lymphocytes Absolute Auto 2.9 X10*3/uL (1.2-4.9); Lymphocytes Percent Auto 35.4 % (20-40); Mean Corpuscular HGB Conc 33.9 g/dl (31.0-36.0); Mean Corpuscular Hemoglobin 28.9 pg (27.0-33.0); Mean Corpuscular Volume 85.4 fL (80.0-98.0); Mean Platelet Volume 9.4 fL (9.4-12.4); Monocytes Absolute Auto 0.7 X10*3/uL (0.1-1.2); Monocytes Percent Auto 8.4 % (2-11); Neutrophils Absolute Auto 4.3 x10*3/uL (2.0-8.3); Neutrophils Percent Auto 51.9 % (45-73); Nitrite Urine Negative (Negative); PH 5.5 (5.0-9.0); Platelet Count 232 X10*3/uL (160-400); Red Blood Count 5.77 X10*6/uL (4.60-5.80); Red Cell Distribution Width 13.5 % (11.0-16.0); Specific Gravity - Urine 1.025 (1.005-1.025); UMIC TRIGGER UACC YES; Urine Blood Small (1+) (Negative); Urine Ketones Negative (Negative); Urine Protein Negative (Neg-Trace); White Blood Count 8.2 X10*3/uL (4.8-10.8)
[2024-10-15 11:37] LABS: Bacteria Urine None Seen (None Seen); Hyaline Casts Urine 0-2 /LPF (0-2); Squamous Epithelial Cell Urine 0-2 /HPF (0-2); WBC Urine 0-5 /HPF (0-5)
[2024-10-15 11:46] LABS: Alanine Aminotransferase 29 U/L (0-40); Albumin Level 4.3 g/dL (3.5-5.0); Alkaline Phosphatase 72 U/L (39-117); Anion Gap 11 (12-20); Aspartate Amino Transferase 36 U/L (5-37); Bilirubin Total 0.3 mg/dL (0.0-1.0); Blood Urea Nitrogen 22 mg/dL (9-16); Calcium 9.6 mg/dL (8.4-10.2); Carbon Dioxide 28 mmol/L (22-29); Chloride 103 mmol/L (96-108); Cholesterol 128 mg/dL (<200); Estimated Glomerular Filt Rate > 60; Glucose Fasting 118 mg/dL (60-99); HDL Cholesterol 26 mg/dL (>40); LDL Cholesterol Calculated 75 mg/dL (<100); Sodium 138 mmol/L (135-145); Total Protein 8.1 g/dL (6.5-8.0); Triglycerides 135 mg/dL (<150)
[2024-10-15 12:04] LABS: PSA,Total (Free>4and<10) 0.22 ng/mL (0.00-4.00)
--- OUTSIDE RECORDS SUMMARY | 2024-10-17 15:09 | XMS_ITS ---
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 Name Role Phone Macario Hay Primary Care Provider RESULTS Component Value Reference Range Notes UA ClnCatch+Micro w/rflx Cul t (Not yet reviewed by provider) Interpretation:see back 10-22-2024 Performing Lab:[facility], [address] [place] [id number] Notes/Report: Urine, Clean Catch Color Urine Yellow Appearance Urine Clear PH 5.5 5.0-9.0 Glucose Urine UA Negative Negative mg/dL Urine Blood Small (1+) Negative Specific [place] - Urine 1.025 1.005-1.025 Urine Protein Negative Neg-Trace mg/dL Urine Ketones Negative Negative mg/dL Nitrite Urine Negative Negative Leukocyte Esterase Urine Negative Negative RBC Urine 11-20 0-2 /HPF WBC Urine 0-5 0-5 /HPF Squamous Epithelial Cell Urine 0-2 0-2 /HPF Bacteria Urine None Seen None Seen Hyaline Casts Urine 0-2 0-2 /LPF Complete Blood Count Auto Di ff Reviewed date:10/15/2024 12:48:40 PM Interpretation: Performing Lab:[facility], [address] [place] [phone] Notes/Report: White Blood Count 8.2 4.8-10.8 X10*3/uL Red Blood Count 5.77 4.60-5.80 X10*6/uL Hemoglobin 16.7 14.0-18.0 g/dl Hematocrit 49.3 42.0-52.0 % Mean Corpuscular Volume 85.4 80.0-98.0 fL Mean Corpuscular Hemoglobin 28.9 27.0-33.0 pg Mean Corpuscular HGB Conc 33.9 31.0-36.0 g/dl Red Cell Distribution Width 13.5 11.0-16.0 % Platelet Count 232 160-400 X10*3/uL Mean Platelet Volume 9.4 9.4-12.4 fL Neutrophils Percent Auto 51.9 45-73 % Imm Gran Pct Auto 0.5 0.0-0.4 % Lymphocytes Percent Auto 35.4 20-40 % Monocytes Percent Auto 8.4 2-11 % Eosinophils Percent Auto 3.2 0-4 % Basophils Percent Auto 0.6 0-2 % NRBC Pct Auto 0.0 0.0-0.2 /100WBC Neutrophils Absolute Auto 4.3 2.0-8.3 x10*3/u L Imm Gran Abs Auto 0.04 0.00-0.03 X10*3/uL Lymphocytes Absolute Auto 2.9 1.2-4.9 X10*3/u L Monocytes Absolute Auto 0.7 0.1-1.2 X10*3/uL Eosinophils Absolute Auto 0.3 0.0-0.4 X10*3/u L Basophils Absolute Auto 0.1 0.0-0.2 X10*3/uL NRBC Abs Auto 0.000 0.0-0.012 X10*3/uL Comprehensive [place]. Panel Fa st Reviewed date:10/16/2024 12:53:27 PM Interpretation: Performing Lab:[facility], [address] [place] [phone] Notes/Report: Sodium 138 135-145 mmol/L Potassium 4.0 3.3-5.1 mmol/L Chloride 103 96-108 mmol/L Carbon Dioxide 28 22-29 mmol/L Anion Gap 11 12-20 Blood Urea Nitrogen 22 9-16 mg/dL Creatinine 0.83 0.5-1.4 mg/dL Estimated Glomerular Filt Rate > 60 Chronic Kidney Disease: Estimated GFR < 60 mL/min/1.73m2 Severe Kidney Disease: Estimated GFR < 15 mL/min/1.73m2 Glucose Fasting 118 60-99 mg/dL A fasting glucose from 100-125 mg/dl is considered impaired (pre-diabetes). Calcium 9.6 8.4-10.2 mg/dL Bilirubin Total 0.3 0.0-1.0 mg/dL Aspartate Amino Transferase 36 5-37 U/L Alanine Aminotransferase 29 0-40 U/L Total Protein 8.1 6.5-8.0 g/dL Albumin Level 4.3 3.5-5.0 g/dL Alkaline Phosphatase 72 39-117 U/L Lipid Panel Reviewed date:10/15/2024 12:48:48 PM Interpretation: Performing Lab:[address] [phone] Notes/Report: Triglycerides 135 <150 mg/dL Desirable Triglyceride: less than 150 mg/dL Borderline High Triglyceride 150-199 mg/dL High Triglyceride: 200-499 mg/dL Very High Triglyceride: greater than or equal to 5OO mg/dL Cholesterol 128 <200 mg/dL Desirable Cholesterol: less than 200 mg/dL Borderline High Cholesterol: 200-239 mg/dL High Cholesterol: greater than 239 mg/dL LDL Cholesterol Calculated 75 <100 mg/dL Desirable LDL: less than 100 mg/dL Near Optimal/Above Optimal LDL: 110-129 mg/dL Borderline High LDL: 130-159 mg/dL High LDL: 160-189 mg/dL Very High LDL: greater than or equal to 190 mg/dL HDL Cholesterol 26 >40 mg/dL Desirable HDL: greater than 40 mg/dL Note: This HDL assay may give artificially low results in patients with liver disease. PSA,Total (Free>4and<10) Reviewed date:10/15/2024 12:48:23 PM Interpretation: Performing Lab:[address] [phone] Notes/Report: PSA,Total (Free>4and<10) 0.22 0.00-4.00 ng/mL A Free PSA was not performed: The percentage of Free PSA can be used to enhance the differentiation of prostate cancer from benign prostatic disease in subjects whose PSA levels are between 4.0 and 10.0 ng/mL. For subjects whose PSA levels are below 4.0 or above 10.0 ng/mL, the risk of prostate cancer is determined on the basis of the PSA alone. Therefore the % Free PSA is recommended only for those subjects whose PSA levels are between 4.0 and 10.0 ng/mL. PSA methodology: [employer] i Chemiluminescent Microparticle Immunoassay (CMIA) REASON FOR VISIT yearly fasting labs MEDICATIONS Medication SIG (Take, Route, Frequency, Duration) Notes Start Date End Date Status Nicotine 21 MG/24HR APPLY 1 PATCH TOPICA LLY TO CLEAN DRY SKIN ONCE A DAY for 30 Active Nicotine 14 MG/24HR APPLY 1 PATCH TOPICA LLY TO CLEAN DRY SKIN ONCE DAILY for 30 Active Albuterol Sulfate HFA 108 (90 Base) MCG/ACT 1 puff as needed Inhalation every 4 hrs for 90 days 06/30/2023 Active Nicotine Step 3 7 MG/24HR 1 patch to ski n Transdermal Once a day for 30 day(s) 04/27/2024 Active Ventolin HFA * 108 (90 Base) MCG/ACT 2 puffs as needed Inhalation every 4 hrs for 30 day(s) 01/19/2021 Not-Taking Loratadine-D 24HR 10-240 MG 1 tablet as needed Orally Once a day for 30 day(s) Not-Taking Levaquin 500 MG 1 tablet Orally Once a day for 10 day(s) Not-Taking metroNIDAZOLE 250 MG 1 tablet Orally Twi ce a day Not-Taking ProAir HFA 108 (90 Base) MCG/ACT 2 puffs as needed Inhalation every 6 hrs for 24 Not-Taking Atorvastatin Calcium 10 MG TAKE 1 TABLET BY MOUTH ONCE A DAY. for 90 Active Abilify 2 MG 2 tablets Orally Onc e a day Active CeleXA 20 MG 1 tablet Orally Once a day 04/12/2019 Active Fish Oil 1000 MG 1 capsule Orally Onc e a day for 30 day(s) Active Multi For Him - as directed Orally Active Melatonin 5 MG 1 tablet in the even ing Orally Once a day for 30 day(s) Active Flonase Allergy Relief 50 MCG/ACT 1 spray in each nostril Nasally Once a day for 30 day(s) Active Claritin 10 MG 1 tablet Orally Once a day for 30 day(s) Active Encounters Encounter Location Date Provider Diagnosis Macario Hay MD [address] [place] [address] [address] [place], [place] [id number] 10/15/2024 Macario Hay Blood tests for routine general physical examination Z00.00 ; Lymphocytosis D72.820 and Elevated cholesterol E78.00 ASSESSMENTS Encounter Date Diagnosis Assessment Notes Treatment Notes Treatment Clinical Notes 10/15/2024 Blood tests for routine general physical examination (ICD-10 - Z00.00) 10/15/2024 Lymphocytosis (ICD-1 0 - D72.820) 10/15/2024 Elevated cholesterol (ICD-10 - E78.00) PLAN OF TREATMENT Pending Test Test Name Order Date UA ClnCatch+Micro w/rflx Cult 10/15/2024 Next Appt Details Provider Name:Macario rodriguez, 10/22/2024 08:30:00 AM, [address] [place] [address], [address], [place], [place], [id number],
--- OUTSIDE RECORDS SUMMARY | 2024-10-17 15:09 | XMS_ITS | Patient Health Record ---
Author Organization Macario Hay MD Address [address] [place], [place] [id number] Care Team Providers Care Programmer Analyst Name Role Phone Macario Hay Primary Care Provider ALLERGIES Allergen (clinical drug ingredient) Drug/Non Drug Allergy documented on EMR Reaction Allergy Type Onset Date Status temazepam Temazepam sleep walking Drug Allergy Act nayeli RESULTS Component Value Reference Range Notes CT lung screening Reviewed date:11/14/2023 11:00:56 AM Interpretation:LMM for office to call Performing Lab: Notes/Report: [address] [address] [address] Scan Report Signed Patient: Braulio Reardon MR#: [id number] 167 : 1965 Acct:[id number] Age/Sex: 58 / M ADM Date: 10/20/23 Loc: HO.CT Attending Dr: Sakshi Roman PA-C Ordering Physician: Sakshi Roman PA-C Date of Service: 10/20/23 Procedure(s): CT lung screening Accession Number(s): [id number] cc: Macario Hay MD; Sakshi Roman PA-C EXAMINATION: CT CHEST SCREENING CLINICAL INFORMATION: Nicotine dependence. COMPARISON: 05/14/2022. TECHNIQUE: Multidetector volumetric CT imaging of the chest is performed without contrast using low-dose technique. Additional 2-D coronal and sagittal reformatted images and axial 3-D maximum intensity projection (MIP) images are generated on the CT workstation. This CT examination was performed using dose optimization techniques as appropriate, variously including the following: *Automated exposure control *Adjustment of mA and/or kV according to patient size (this includes techniques or standardized protocols for targeted exams where dose is matched to indication/reason for exam; i.e. extremities or head) *Use of iterative reconstruction technique DLP: 81 mGy-cm FINDINGS: LUNGS: Scattered calcified pulmonary granulomas are again seen and unchanged, the largest measuring 4 mm in the right middle lobe (5:262). No suspicious lung nodules or infiltrates are seen. Again noted is mild dependent atelectasis. MEDIASTINUM: The thyroid is unremarkable. No mediastinal or hilar lymphadenopathy seen. No aortic aneurysm. Heart size is normal. No significant coronary calcium. PLEURA: There is no pleural effusion. No pleural mass or thickening. AXILLA: There are no abnormal lymph nodes visualized. UPPER ABDOMEN: There is decreased attenuation of the liver compared with the spleen consistent with hepatic steatosis, unchanged from prior. OSSEOUS STRUCTURES: No lytic or sclerotic process seen. CT/CT lung screening IMPRESSION: Unremarkable examination. ASSESSMENT: Lung-RADS category 2: Benign. RECOMMENDATION: Low-dose annual CT chest. Dictated By: Rayshawn Hess MD Signed By: <Electronically signed by Rayshawn Hess MD in OV> 11/08/23 1117 DD/ 0909 TD/TT: Pencil Maker: KOMAL Wagoner Reviewed date:04/10/2024 11:59:24 AM Interpretation: Performing Lab:[facility] [place], [address] [place] [phone] Notes/Report: Yang Wagoner See Note Specimen held untested for 24 hours; Call to request Chemistry testing. Liver Panel Reviewed date:04/10/2024 04:26:11 PM Interpretation: Performing Lab:[facility] [place], [address] [place] [phone] Notes/Report: Bilirubin Total 0.5 0.0-1.0 mg/dL Bilirubin Direct 0.2 0.0-0.5 mg/dL Aspartate Amino Transferase 31 5-37 U/L Alanine Aminotransferase 33 0-40 U/L Total Protein 8.1 6.5-8.0 g/dL Albumin Level 4.4 3.5-5.0 g/dL Alkaline Phosphatase 70 39-117 U/L Lipid Panel with Reflex Reviewed date:04/10/2024 04:28:11 PM Interpretation: Performing Lab:[facility] [place], [address] [place] [phone] Notes/Report: Triglycerides 110 <150 mg/dL Desirable Triglyceride: less than 150 mg/dL Borderline High Triglyceride 150-199 mg/dL High Triglyceride: 200-499 mg/dL Very High Triglyceride: greater than or equal to 5OO mg/dL Cholesterol 143 <200 mg/dL Desirable Cholesterol: less than 200 mg/dL Borderline High Cholesterol: 200-239 mg/dL High Cholesterol: greater than 239 mg/dL LDL Cholesterol Calculated 91 <100 mg/dL Desirable LDL: less than 100 mg/dL Near Optimal/Above Optimal LDL: 110-129 mg/dL Borderline High LDL: 130-159 mg/dL High LDL: 160-189 mg/dL Very High LDL: greater than or equal to 190 mg/dL HDL Cholesterol 30 >40 mg/dL Desirable HDL: greater than 40 mg/dL Note: This HDL assay may give artificially low results in patients with liver disease. Blood Urea Nitrogen Reviewed date:05/26/2024 04:16:35 PM Interpretation: Performing Lab:[facility] [place], [address] [place] [phone] Notes/Report: Blood Urea Nitrogen 19 9-16 mg/dL Creatinine Reviewed date:05/26/2024 04:17:41 PM Interpretation: Performing Lab:[facility] [place], [address] [place] [phone] Notes/Report: Creatinine 1.02 0.5-1.4 mg/dL Estimated Glomerular Filt Rate > 60 NOTE: For -Lithuanian individuals, multiply the result by 1.210. Chronic Kidney Disease: Estimated GFR < 60 mL/min/1.73m2 Severe Kidney Disease: Estimated GFR < 15 mL/min/1.73m2 Creatinine GFR POC Reviewed date:05/29/2024 12:32:57 PM Interpretation: Performing Lab:[facility] [place], [address] [place] [phone] Notes/Report: [id number] 0.89 >60 0857 HO.HEAK Creatinine POC 0.9 0.5-1.4 mg/dL GFR POC > 60 Chronic Kidney Disease: Estimated GFR < 60 mL/min/1.73m2 Severe Kidney Disease: Estimated GFR < 15 mL/min/1.73m2 CT urogram Reviewed date:07/12/2024 07:42:21 PM Interpretation: Performing Lab: Notes/Report: [address] [address] [address] Scan Report Signed Patient: Braulio Reardon MR#: [id number] 167 : 1965 Acct:[id number] Age/Sex: 58 / M ADM Date: 05/25/24 Loc: HO.CT Attending Dr: Alessia Quinn [facility] Ordering Physician: Alessia Quinn Date of Service: 05/25/24 Procedure(s): CT urogram Accession Number(s): [id number] cc: Macario Hay MD; Alessia Quinn EXAMINATION: CT ABDOMEN AND PELVIS WITHOUT AND WITH CONTRAST CLINICAL INFORMATION: History of smoking. Microscopic hematuria. COMPARISON: CT scans dating between November 30, 2021 and August 15, 2009. TECHNIQUE: Noncontrast CT of the abdomen and pelvis is performed followed by split bolus contrast-enhanced images using 85 mL Omnipaque 350 contrast. Postcontrast imaging is performed during the combined nephrogram and excretion phase. Sagittal and coronal reformatted images were obtained on the technologist's workstation for both the precontrast and postcontrast phases. This CT examination was performed using dose optimization techniques as appropriate, variously including the following: *Automated exposure control *Adjustment of mA and/or kV according to patient size (this includes techniques or standardized protocols for targeted exams where dose is matched to indication/reason for exam; i.e. extremities or head) *Use of iterative reconstruction technique DLP: Clinical data 28 mGy-cm FINDINGS: LUNG BASES: The lung bases appear clear, with no evidence of inflammation or nodules. LIVER, GALLBLADDER, AND BILIARY TREE: Mild fatty infiltration of the liver. The liver appears unremarkable in size and shape. No focal hepatic lesion or biliary ductal dilatation is appreciated. Unremarkable appearance of the gallbladder. PANCREAS: Unremarkable SPLEEN: Unremarkable ADRENAL GLANDS: Unremarkable KIDNEYS AND URETERS: Normal variant lobulation. Approximately 1.8 cm or less benign bilateral simple renal cysts for which no further dedicated follow-up imaging as indicated. Renal cyst for which no further dedicated follow-up imaging as indicated. The kidneys otherwise appear unremarkable in size, shape, and attenuation. No hydronephrosis, hydroureter, or calculi seen. BLADDER: Unremarkable GASTROINTESTINAL TRACT: Less than 2 cm diverticulum involving the third portion of the duodenum, without evidence of associated inflammation. Diverticulosis predominantly involving the sigmoid and descending colon, without evidence of diverticulitis. Normal-appearing distal ileum and vermiform appendix. ABDOMINAL WALL: No significant hernia is appreciated. LYMPH NODES: No evidence of adenopathy by size criteria. VASCULAR: Unremarkable PELVIC VISCERA: Unremarkable OSSEOUS STRUCTURES: Unremarkable CT/CT urogram IMPRESSION: No suspicious radiographic finding. Electronically signed by: Benitez Hernandez MD 07/12/2024 05:06 PM EDT RP Dictated By: Benitez Hernandez Signed By: <Electronically signed by Benitez Hernandez in OV> 07/12/24 1706 DD/ TD/TT: 05/25/24 09 Pencil Maker: LETY ClnCatch+Micro w/rflx Cul t (Not yet reviewed by provider) Interpretation:see back 10-22-2024 Performing Lab:[facility] [place], [address] [place] [phone] Notes/Report: Urine, Clean Catch Color Urine Yellow Appearance Urine Clear PH 5.5 5.0-9.0 Glucose Urine UA Negative Negative mg/dL Urine Blood Small (1+) Negative Specific Fieldon - Urine 1.025 1.005-1.025 Urine Protein Negative [...] ff Reviewed date:10/15/2024 12:48:40 PM Interpretation: Performing Lab:[facility] [place], [address] [place] [phone] Notes/Report: White Blood Count 8.2 4.8-10.8 X10*3/uL [...] NRBC Abs Auto 0.000 0.0-0.012 X10*3/uL Comprehensive Howell. Panel Fa st Reviewed date:10/16/2024 12:53:27 PM Interpretation: Performing Lab:[facility] [place], [address] [place] [phone] Notes/Report: Sodium 138 135-145 mmol/L Potassium 4.0 [...] Panel Reviewed date:10/15/2024 12:48:48 PM Interpretation: Performing Lab:[address] [phone] Notes/Report: Triglycerides 135 <150 mg/dL Desirable Triglyceride: [...] (Free>4and<10) Reviewed date:10/15/2024 12:48:23 PM Interpretation: Performing Lab:[address] [phone] Notes/Report: PSA,Total (Free>4and<10) 0.22 0.00-4.00 ng/mL A [...] between 4.0 and 10.0 ng/mL. PSA methodology: Prado Alinity i Chemiluminescent Microparticle Immunoassay (CMIA) REASON FOR REFERRAL No Information MEDICATIONS Medication SIG (Take, Route, Frequency, Duration) Notes Start Date End Date Status Flonase Allergy Relief 50 MCG/ACT 1 spray in each nostril Nasally Once a day for 30 day(s) Active Loratadine-D 24HR 10-240 MG 1 tablet as [...] tablet Orally Once a day 04/12/2019 Active Nicotine 21 MG/24HR APPLY 1 PATCH TOPICA LLY TO CLEAN DRY SKIN ONCE A DAY for 30 Active Fish Oil 1000 MG 1 capsule Orally Onc e a day for 30 day(s) Active Nicotine 14 MG/24HR APPLY 1 PATCH TOPICA LLY TO CLEAN DRY SKIN ONCE DAILY for 30 Active Multi For Him - as directed Orally Active Albuterol Sulfate HFA 108 (90 Base) MCG/ACT 1 puff as needed Inhalation every 4 hrs for 90 days 06/30/2023 Active Melatonin 5 MG 1 tablet in the even ing Orally Once a day for 30 day(s) Active Nicotine Step 3 7 MG/24HR 1 patch to ski n Transdermal Once a day for 30 day(s) 04/27/2024 Active Claritin 10 MG 1 tablet Orally Once a day for 30 day(s) Active Ventolin HFA * 108 (90 Base) MCG/ACT 2 puffs as needed Inhalation every 4 hrs for 30 day(s) 01/19/2021 Not-Taking IMMUNIZATIONS Vaccine Route Administration Date Status Comme nts Fluarix Quadrivalent Unknown 09/25/[address] [facility] TDaP IM Intramuscular 07/11/2019 Administered pt was given the vaccine at [facility]. Tetanus Unknown 07/11/2019 Administered Fluarix Quadrivalent IM Intramuscular 07/24/2019 Administe red Fluarix Quadrivalent IM Intramuscular 09/01/2020 Administe red PPSV23 (Pnemovax) IM Intramuscular 09/12/2020 Administered SARS-COV-2 Pfizer Unknown 03/01/2021 Administered SARS-COV-2 Pfizer Unknown 03/22/2021 Administered SARS-COV-2 Pfizer Unknown 09/21/2021 Administered Fluarix Quadrivalent IM Intramuscular 10/08/2021 Administe red Fluarix Quadrivalent IM Intramuscular 11/12/2022 Administe red Fluarix Quadrivalent Unknown 11/12/2022 Administered Fluarix Quadrivalent IM Intramuscular 07/18/2023 Administe red Prevnar 20 Unknown 07/26/2024 Administ[address] [facility] Shingrix Unknown 07/26/2024 [address] [facility] Fluarix Quadrivalent - 150 Unknown 07/26/2024 [address]ered [facility] SARS-COV-2 Pfizer Unknown 07/26/20[address] [facility] SOCIAL HISTORY Tobacco Use: Social History Observation Description Date Details (start date - stop date) Former Smoker NA - NA Sex Assigned At : Social History Observation Description Sex Assigned At Unknown Tobacco Use/Smoking Question Answer Notes Patient is a former smoker How long has it been since y ou last smoked? 1-5 years Additional Findings: Tobacco Non-User Fo rmer smoker, currently using no form of tobacco Alcohol Screen Question Answer Notes Did you have a drink containing alcohol in the p ast year? No Points 0 Interpretation Negative PROBLEMS Problem Type ICD Code Onset Dates Problem Status W/U Status Risk SNOMED Code Notes Problem Dysthymia (F34.1) Active confirmed 98423721 Problem Low HDL (under 40) (E78.6) Active confirmed 467954139 Problem Lymphocytosis (D72.820) Active confirmed 39834264 Problem Elevated WBC count (D72.829) Active confirmed Leukocytosis (030337348) Problem Diverticulitis (K57.92) Active confirmed 127299354 Problem CLIFF (obstructive sleep apnea) (G47.33) Active confirmed Obstructive sle ep apnea syndrome (52729167) Problem Smoker (F17.200) Active confirmed Smoke r (65677679) Problem RBBB (I45.10) Active confirmed 61444106 Problem Acute diverticulitis (K57.92) Active confirmed Diverticulitis of colon (670936547) Problem Abnormal CAT scan (R93.89) Active confirmed Computed tomog zunilda result abnormal (520986822) Problem Incidental lung nodule, > 3mm and < 8mm (R91.1) Active confirmed Solitary pulmon pilo nodule (076024724) Problem Elevated cholesterol (E78.00) Active confirmed Pure hypercholesterolemia (814459924) VITAL SIGNS Blood pressure diastolic 70 mm Hg 04/17/2024 sherwin ght is up 5 ounds [id number] Height 69 in 04/17/2024 weight is up 5 ounds [id number] Blood pressure systolic 122 mm Hg 04/17/2024 weig ht is up 5 ounds [id number] Weight 221 lbs 04/17/2024 weight is up 5 ounds adnre8-37-44 BMI 32.63 kg/m2 04/17/2024 weight is up 5 ounds -44-54 Encounters Encounter Location Date Provider Diagnosis Macario Hay MD [address] [place] [id number] 10/17/2023 Macario Hay Pre-diabetes R73.03 ; Annual physical exam Z00.00 ; Lymphocytosis D72.820 ; Dysthymia F34.1 ; Elevated cholesterol E78.00 ; Colon cancer screening Z12.11 and Depression screening Z13.31 Macario Hay MD [address] [place] [id number] 04/10/2024 Macario Hay Elevated cholesterol E78.00 Macario Hay MD [address] [place] [id number] 10/15/2024 Macario Hay Blood tests for routine general physical examination Z00.00 ; Lymphocytosis D72.820 and Elevated cholesterol E78.00 Macario Hay MD [address] [place] [id number] 04/17/2024 Macario Hay Lumbar back pain M54.50 and Varicella vaccination Z23 Macario Hay MD [address] [place] [id number] 11/14/2023 Macario Hay MD [address] [place] [address] [id number] 04/26/2024 Macario Hay MD [address] [place] [address] [id number] 04/27/2024 Macario Hay MD [address] [place] [id number] 08/16/2024 Macario Hay MD [address] [place] [address] [id number] 11/22/2023 Macario Hay Bronchitis J40 ASSESSMENTS Encounter Date Diagnosis Assessment Notes Treatment Notes Treatment Clinical Notes 10/17/2023 Annual physical exam (ICD-10 - Z00.00) labs reviewed and discussed with patient 10/17/2023 Pre-diabetes (ICD-10 - R73.03) discussed diet and exercise and carbohydrates, no need for medication at this time, will contnue to monitor 04/10/2024 Elevated cholesterol (ICD-10 - E78.00) 10/15/2024 Lymphocytosis (ICD-10 - D72.820) 10/15/2024 Blood tests for routine general physical examination (ICD-10 - Z00.00) 04/17/2024 Lumbar back pain (ICD-10 - M54.50) is going to see you tube exercise. doesn't want pt 04/17/2024 Varicella vaccination (ICD-10 - Z23) advised to get the vaccination 11/22/2023 Bronchitis (ICD-10 - J40) Patient/Caregiver verbalizes understanding of medications side effects, interactions and warnings. 10/17/2023 Lymphocytosis (ICD-10 - D72.820) has resolved 10/15/2024 Elevated cholesterol (ICD-10 - E78.00) 10/17/2023 Dysthymia (ICD-10 - F34.1) doing well on meds, will continue current regiment 10/17/2023 Elevated cholesterol (ICD-10 - E78.00) stable, will continue current regiment 10/17/2023 Colon cancer screening (ICD-10 - Z12.11) negative screen 10/17/2023 Depression screening (ICD-10 - Z13.31) negative screen PLAN OF TREATMENT Pending Test Test Name Order Date MR abdomen wo/w con 12/07/2021 MR abdomen wo/w con 12/21/2021 MR MRCP 12/04/2021 UA ClnCatch+Micro w/rflx Cult 10/15/2024 Next Appt Details Provider Name:Macario Diamond Jonathon rodriguez, 10/22/2024 08:30:00 AM, [address] [facility], [address], [place], [place], [phone], Insurance Providers Payer Name Payer Address Payer Phone Subscriber Number Group Number Insured Name Patient Relationship to Insured Coverage Start Date Coverage End Date [facility] Direct [address] [place] [address] [id number] Braulio Reardon Self - patient is the insured MEDICAL (GENERAL) HISTORY Medical History History ICD Code 12/26/[address] Castro - repeat 10 years 2019 had hematuriia evaluatuon with dr miracle bliss with cysto and ct
--- OUTSIDE RECORDS SUMMARY | 2024-10-17 15:09 | XMS_ITS ---
Author Organization Macario Hay MD Address [address] [place] [address] [place] [phone] Care Team Providers Care Jewel Oliving Machine Operator Name Role Phone Macario Hay Primary Care Provider [phone] MEDICATIONS Medication SIG (Take, Route, Frequency, Duration) Notes Start Date End Date Status Albuterol Sulfate HFA 108 (90 Base) MCG/ACT 1 puff as needed Inhalation every 4 hrs for 90 days 06/30/2023 Active Encounters Encounter Location Date Provider Diagnosis Macario Hay MD [address] [place] [address] [address] [place], [place] [phone] 08/16/2024 Macario Hay PLAN OF TREATMENT Medication Medication Name Sig Start Date Stop Date Notes Albuterol Sulfate HFA 108 (9 0 Base) MCG/ACT 1 puff as needed Inhalation every 4 hrs for 90 days 06/30/2023 Next Appt Details Provider Name:Macario rodriguez, 10/22/2024 08:30:00 AM, [address] [place] [address], Suite [facility], [place], [place], [phone],
--- OUTSIDE RECORDS SUMMARY | 2024-10-17 15:09 | XMS_ITS | Patient Health Record ---
Author Organization [facility] Address [address] [place] [address] Care Team Providers Care Student Services Advisor Name Role Phone Bharti HERNANDEZ, Macario Primary Care Provider Dylan Serrato Jr Unavailable [phone] ALLERGIES Allergen (clinical drug ingredient) Drug/Non Drug Allergy documented on EMR Reaction Allergy Type Onset Date Status temazepam Temazepam Unknown Drug Allergy Active Dyphylline-Guaifenesin Unknown Drug Allergy Active REASON FOR REFERRAL No Information MEDICATIONS Medication SIG (Take, Route, Frequency, Duration) Notes Start Date End Date Status Multivitamin Adults Active CeleXA 20 MG 1 tablet Orally Once a day Active Aspirin 81 Active Claritin Active Abilify 2 MG 2 tablet Orally Once a day Active Fish Oil Active Omeprazole 20 MG TAKE 1 CAPSULE BY [facility] DAILY; 30 MINUTES BEFORE MORNING MEAL for 30 Active Atorvastatin Calcium 10 MG 1 tablet Oral ly Once a day for 30 day(s) Active IMMUNIZATIONS Vaccine Route Administration Date Status Comme nts Influenza Unknown 08/07/2019 Administered Influenza Unknown 10/07/2021 Administered Influenza Unknown 08/24/2022 Administered SOCIAL HISTORY Tobacco Use: Social History Observation Description Date Details (start date - stop date) Former Smoker NA - NA Sex Assigned At : Social History Observation Description Sex Assigned At Unknown Tobacco Use/Smoking Question Answer Notes Patient is a former smoker How long has it been since you last smoked? 1-5 years Alcohol Screen Question Answer Notes Did you have a drink containing alcohol in the p ast year? No Points 0 Interpretation Negative PROBLEMS Problem Type ICD Code Onset Dates Problem Status W/U Status Risk SNOMED Code Notes Problem Colon cancer screening (Z12.11) Active confirmed 839839128 Problem Encounter for other preprocedural examination (Z01.818) Active confirmed 471989631 Problem Abnormal CT scan, esophagus (R93.3) Active confirmed 857698251 Problem Other dysphagia (R13.19) Active confirmed 73615162 Problem Pancreatic duct dilated (K86.89) Active confirmed 283222395 Problem Gastroesophageal reflux disease with esophagitis without hemorrhage (K21.00) Active confirmed 029084552 Problem Gastric intestinal metaplasia (K31.A0) Active confirmed 10889271 Problem Gastroesophageal reflux disease (K21.9) Active confirmed Gastroesophagea l reflux disease (602773416) PLAN OF TREATMENT Pending Test Test Name Order Date Pathology 03/15/2023 Future Test Test Name Order Date COLONOSCOPY 09/26/2019 UPPER GI ENDOSCOPY 12/23/2021 UPPER GI ENDOSCOPY 01/31/2023 Insurance Providers Payer Name Payer Address Payer Phone Subscriber Number Group Number Insured Name Patient Relationship to Insured Coverage Start Date Coverage End Date [facility] [address] [place] [address] [id number] MARYCARMEN WARD Self - patient is the insured 2 MEDICAL (GENERAL) HISTORY Medical History History ICD Code Palpitations microscopic hematuria depression Diverticulitis Colonoscopy 12/27, normal, diverticulosis , ten-year followup Surgical History Surgery Date(Month/Year) basil cell on lip
--- OUTSIDE RECORDS SUMMARY | 2024-10-17 15:09 | XMS_ITS ---
Author Organization Macario Hay MD Address [address] [place] [phone] Care Team Providers Care Board Finisher Name Role Phone Macario Hay Primary Care Provider MEDICATIONS Medication SIG (Take, Route, Frequency, Duration) Notes Start Date End Date Status Nicotine Step 1 21 MG/24HR 1 patch to sk in Transdermal Once a day for 30 days 04/27/2024 Active Nicotine Step 2 14 MG/24HR 1 patch to sk in Transdermal Once a day for 30 day(s) 04/27/2024 Active Nicotine Step 3 7 MG/24HR 1 patch to ski n Transdermal Once a day for 30 day(s) 04/27/2024 Active Encounters Encounter Location Date Provider Diagnosis Macario Hay MD [address] [place] [phone] 04/27/2024 Macario Hay PLAN OF TREATMENT Medication Medication Name Sig Start Date Stop Date Notes Nicotine Step 1 21 MG/24HR 1 patch to sk in Transdermal Once a day for 30 days 04/27/2024 Nicotine Step 2 14 MG/24HR 1 patch to sk in Transdermal Once a day for 30 day(s) 04/27/2024 Nicotine Step 3 7 MG/24HR 1 patch to ski n Transdermal Once a day for 30 day(s) 04/27/2024 Next Appt Details Provider Name:Macario rodriguez, 10/22/2024 08:30:00 AM, [address], [address], [place], [place], [phone],
== END 2024-10-15 11:16 | disposition home or self-care (01) ==
LOC: HO.LNP 11:15
PROVIDERS: Visit Provider Internal Medicine
DX: Z00.00 Encounter for general adult medical examination without abnormal findings (principal); D72.820 Lymphocytosis (symptomatic); E78.00 Pure hypercholesterolemia, unspecified; Z12.5 Encounter for screening for malignant neoplasm of prostate
CPT/HCPCS: 80053; 80061; 81001; 84153; 85025

== ENCOUNTER 2024-11-21 14:37 | Outpatient (AMB) | payer OTHER, SELFPAY ==
--- NOTE | 2024-11-21 14:37 | A.OFFPC_ITS ---
Vital Signs 11/21/24 14:46 Height 5 ft 8.5 in Weight 211 lb BMI 31.6 BP 116/72 Blood Pressure Location Rt brachial Pulse 96 Pulse Source Pulse Oximeter Temp 98.1 F Pulse Oximetry (%) 93 Intake Visit Reasons: Medical clearance to return to work Intake Note: here to get a medical clearence note for work sick since last Tuesday with flu like symptoms. Allergies temazepam [TEMAZEPAM] Allergy (Unknown, Verified 11/23/24 08:44) SLEEPWALKING diphenhydramine [From Benadryl] Allergy (Verified 11/23/24 08:44) twitching feathers Allergy (Verified 11/23/24 08:44) Hives Medication List - Last Reconciled 11/23/24 by Rich Hutchinson MD albuterol sulfate 90 mcg/actuation 2 puffs inhalation Q4-6H PRN amoxicillin-pot clavulanate 875-125 mg 1 tab PO BID aripiprazole 2 mg PO DAILY atorvastatin 10 mg PO DAILY azithromycin 250 mg PO DAILY 4 days citalopram (Celexa) 20 mg PO DAILY [Fish Oil 1,200 mg PO DAILY] loratadine-pseudoephedrine 10-240 mg ER (Claritin-D 24 Hour) 1 tab PO DAILY melatonin 5 mg PO BEDTIME multivitamin 1 tab PO DAILY omeprazole 20 mg PO ONCE prednisone 40 mg (2 x 20 mg) PO DAILY HPI Medical clearance to return to work HPI Details 59-year-old male presents to the office for a sick visit. Patient has symptoms of respiratory illness that includes wheezing, postnasal drip and sore throat. Symptoms are improving but his employer is requesting a note for work [facility], [facility] Medical History (Updated 11/23/24 @ 00:01 by George Devine) Microscopic hematuria Depression H. pylori infection GERD (gastroesophageal reflux disease) COPD (chronic obstructive pulmonary disease) Elevated cholesterol Elevated AFP History of diverticulitis History of depression Palpitations Personal history of nicotine dependence Pulmonary nodules Surgical History History of esophagogastroduodenoscopy (EGD) Hx of basal cell carcinoma excision Hx of colonoscopy Family History Father No problems noted. Mother Lung cancer Social History Alcohol intake: current Alcohol intake frequency: does not drink Patient Tobacco Use Status: Former Tobacco user Cigarettes Per Day: 15 Years Smoked: 37 Physical exam (Primary Care) Vital Signs: Last Vital Signs Temp 98.1 F 11/21/24 14:46 Pulse 96 11/21/24 14:46 BP 116/72 11/21/24 14:46 Pulse Ox 93 11/21/24 14:46 BMI result Body Mass Index 31.6 Tobacco/Smoking Status: Tobacco use Status Patient Tobacco Use Status Former Tobacco user 11/21/24 14:38 Const General: cooperative and healthy appearing Nutritional Appearance: well nourished Orientation/consciousness: patient oriented x3 Limitations: no limitations HENMT Head: Yes normal to inspection Eyes General: appearance normal, both eyes and all related structures Neck Neck: Yes normal visual inspection Chest Chest palpation & inspection: normal palpation of entire chest wall Resp Effort & Inspection: normal respiratory effort Neuro General: patient oriented x3 Coding Level of Care Code Est Pt Level 3 (05791) Diagnoses Upper respiratory tract infection J06.9 Assessment & Plan Assessment & Plan (1) Upper respiratory tract infection: Code(s): J06.9 - Acute upper respiratory infection, unspecified Plan: Self-limiting illness. No medications added today. Note for work given. COVID testing ordered. Orders: Orders SARS-CoV2/FLU/RSV 11/21/24 R43.9 - Unspecified disturbances of smell and taste
[2024-11-21 14:46] VITALS: BP 116/72; PULSE 96; TEMP 36.7; O2SAT 93; BMI 31.6
== END 2024-11-21 14:57 | disposition home or self-care (01) ==
LOC: HO.HMCSH 14:37
PROVIDERS: PCP Internal Medicine; Visit Provider Internal Medicine
DX: J06.9 Acute upper respiratory infection, unspecified (principal)

== ENCOUNTER → 2024-11-21 14:37 | Outpatient (BNVA) | payer OTHER, SELFPAY | PROVIDERS: PCP Internal Medicine; Visit Provider Internal Medicine ==

== ENCOUNTER 2024-11-21 20:55 | Emergency (ER) | payer OTHER, SELFPAY ==
--- NOTE | ~2024-11-21 | XR_ITS ---
CLINICAL HISTORY: cough sob 2 view chest x-ray Comparison: CR - CHEST 2 VIEWS [id number] - 07/28/13 00:00 EDT Findings: Patchy mixed interstitial and airspace opacity in both lungs. No consolidation. No pleural effusion or pneumothorax. Heart size normal. IMPRESSION: 1. Patchy mixed interstitial and airspace opacity in both lungs, new from prior study. Findings suggest atypical bilateral infectious process such as viral pneumonitis. This document has been electronically signed by: Jun Ramon MD on 11/21/2024 22:03:19
[2024-11-21 21:06] VITALS: BP 132/77; PULSE 100; RESP 22; TEMP 36.9; O2SAT 92; BMI 32.0
--- NOTE | 2024-11-21 21:16 | MHC.EDTECH ---
Patient brought into triage area,sars/flu/rsv collected and sent to lab
[2024-11-21 22:39] LABS: Influenza A PCR NEGATIVE (Negative); Influenza B PCR NEGATIVE (Negative); Resp Syncy Virus RNA Qual PCR NEGATIVE (Negative); SARS COV2 PCR INHOUSE NEGATIVE (Negative)
[2024-11-21 23:53] VITALS: BP 125/77; PULSE 95; RESP 22; TEMP 37.1; O2SAT 92
[2024-11-22] MEDS: Albuterol Sulfate 5 MG, Albuterol/Iprat 2.5/0.5MG 3 ML 3 ML INHALE (01:54)
[2024-11-22 01:55] VITALS: PULSE 86; RESP 20; O2SAT 94
[2024-11-22] MEDS: Azithromycin 500 MG TABLET PO (01:59)
[2024-11-22] MEDS: Amoxicillin/Potassium Clav 875 MG TABLET PO (01:59)
--- NOTE | 2024-11-22 02:29 | ED.GENADULT ---
HPI - General Adult General Chief complaint: Upper Respiratory Symptoms Stated complaint: sob, coughing Time Seen by Provider: 11/22/24 01:14 Source: patient Limitations: no limitations History of Present Illness ED Provider: Ana Lora PA-C HPI narrative: 59-year-old male with a history of COPD, tobacco abuse, apnea, presents with cough and cold symptoms x5 days. Associated wheezing at times, generalized malaise and headache. Denies known fever. Denies sick contacts with same symptoms. Related Data Home Medications ?Medication ?Instructions ?Recorded ?Confirmed multivitamin 1 tab PO DAILY 11/27/21 03/15/23 aripiprazole 2 mg tablet 2 mg PO DAILY 01/13/23 03/15/23 atorvastatin 10 mg tablet 10 mg PO DAILY 01/13/23 03/15/23 Fish Oil 1,200 mg PO DAILY 03/14/23 03/15/23 citalopram 20 mg tablet (Celexa) 20 mg PO DAILY 03/14/23 03/15/23 melatonin 5 mg tablet 5 mg PO BEDTIME 03/15/23 03/15/23 loratadine-pseudoephedrine ER 10 1 tab PO DAILY 12/19/23 mg-240 mg tablet,extended [id number] (Claritin-D 24 Hour) omeprazole 40 mg capsule,delayed 20 mg PO ONCE 11/21/24 release Previous Rx's ?Medication ?Instructions ?Recorded albuterol sulfate 90 mcg/actuation 2 puff inhalation Q4-6H PRN 11/22/24 aerosol inhaler shortness of breath or wheezing #8.5 grams amoxicillin 875 mg-potassium 1 tab PO BID #19 tabs 11/22/24 clavulanate 125 mg tablet azithromycin 250 mg tablet 250 mg PO DAILY 4 days #4 tabs 11/22/24 prednisone 20 mg tablet 40 mg (2 x 20 mg) PO DAILY #10 tabs 11/22/24 Allergies Allergy/AdvReac Type Severity Reaction Status Date / Time temazepam [TEMAZEPAM] Allergy Unknown SLEEPWALKIN Verified 11/21/24 21:08 G diphenhydramine Allergy twitching Verified 11/21/24 21:08 [From Benadryl] feathers Allergy Hives Verified 11/21/24 21:08 Review of Systems Review of Systems: Yes all other systems are reviewed and are negative Constitutional: Constitutional: Denies fatigue, Denies fever(s) and Reports malaise Cardiovascular: Cardiovascular: Denies chest pain and Reports dyspnea Respiratory: Respiratory: Reports chest congestion, Reports cough, Reports dyspnea and Reports wheezing Endocrine: Endocrine: Denies fatigue Allergic/Immunologic: Allergic/Immunologic: Reports wheezing PMFSH Past Medical History Attestation statement: The following information was validated with the patient. Medical History (Updated 11/22/24 @ 02:36 by BETTY Craig) Microscopic hematuria Depression H. pylori infection GERD (gastroesophageal reflux disease) COPD (chronic obstructive pulmonary disease) Elevated cholesterol Elevated AFP History of diverticulitis History of depression Palpitations Personal history of nicotine dependence Pulmonary nodules Surgical History History of esophagogastroduodenoscopy (EGD) Hx of basal cell carcinoma excision Hx of colonoscopy Family History Family History Father No problems noted. Mother Lung cancer Social History Social History Alcohol intake: current Alcohol intake frequency: does not drink Patient Tobacco Use Status: Former Tobacco user Cigarettes Per Day: 15 Years Smoked: 37 Smoked in Last 30 Days: No Advance Directives: No Advance Directives Information Provided: No Physical Exam ED Vital Signs: Vital Signs - 24 hr 11/21/24 21:06 11/21/24 23:53 11/22/24 01:55 Temperature 98.5 F 98.7 F Pulse Rate 100 95 86 Respiratory Rate 22 H 22 H 20 Blood Pressure 132/77 125/77 Pulse Oximetry 92 92 Oxygen Delivery Method Room Air Room Air BMI result Body Mass Index 32.0 Const Other: Alert well-appearing Orientation/consciousness: patient oriented x3 Resp Other: Nonlabored respirations, rhonchorous on exam active productive cough, Cardio Other: Normal peripheral perfusion Skin Other: Warm dry no rash Neuro General: patient oriented x3, no focal motor deficits and CN's II-XI intact bilaterally Psych Other: Calm cough Medications Administered Discontinued Medications Generic Name Dose Route Start Last Admin Trade Name Freq PRN Reason Stop Dose Admin Amoxicillin/Clavulanate Potassium 875 mg 11/22/24 01:25 11/22/24 01:59 Amoxicillin/Potassium Clav 875 Mg Tablet PO 11/22/24 01:26 875 mg ONCE ONE Administration Azithromycin 500 mg 11/22/24 01:25 11/22/24 01:59 Azithromycin 500 Mg Tablet PO 11/22/24 01:26 500 mg ONCE ONE Administration Albuterol Sulfate 5 mg/ 0 mg 11/22/24 01:23 11/22/24 01:54 Albuterol/Ipratropium 3 ml INHALE 11/22/24 01:24 1 each ONCE ONE Administration Medical Decision Making Medical Decision Making MDM Narrative: 59-year-old male with a history of COPD, tobacco abuse, apnea, presents with cough and cold symptoms x5 days. Associated wheezing at times, generalized malaise and headache. Denies known fever. Denies sick contacts with same symptoms. Problem: COPD tobacco abuse History: Per patient I have considered the following differential diagnoses: Pneumonia, bronchitis, viral syndrome, COPD exacerbation Plan: Viral panel and chest x-ray obtained from triage, the patient will be treated for bronchitis. Giving a DuoNeb, holding the steroid until later this morning so he can sleep, starting him on Augmentin and azithromycin. I have independently reviewed the following tests: Labs: Viral panel negative Chest x-ray:MPRESSION: 1. Patchy mixed interstitial and airspace opacity in both lungs, new from prior study. Findings suggest atypical bilateral infectious process such as viral pneumonitis. This document has been electronically signed by: Jun Ramon MD on 11/21/2024 22:03:19 Lab Data Labs: Lab Results 11/21/24 Range/Units 21:16 Influenza Type A (PCR) NEGATIVE (Negative) Influenza Type B (PCR) NEGATIVE (Negative) RSV RNA Qual (PCR) NEGATIVE (Negative) SARS-CoV-2 RNA (RT-PCR) NEGATIVE (Negative) Discharge Plan Discharge Clinical Impression: Bronchitis Patient Disposition: Home, Self-Care Instructions: Acute Bronchitis (ED) Additional Instructions: You are being treated for bronchitis, the viral panel was negative. See home care instructions. Use your inhalers every 4-6 hours as needed for cough and wheezing. Take the steroid as directed start tomorrow morning. Take both antibiotics as directed complete the course of each antibiotic. Follow up with your primary care provider as needed. Prescriptions: New prednisone 20 mg tablet 40 mg PO DAILY Qty: 10 0RF albuterol sulfate 90 mcg/actuation HFA aerosol inhaler 2 puff inhalation Q4-6H PRN (Reason: shortness of breath or wheezing) Qty: 8.5 0RF amoxicillin-pot clavulanate 875-125 mg tablet 1 tab PO BID Qty: 19 0RF azithromycin 250 mg tablet 250 mg PO DAILY 4 Days Qty: 4 0RF Rx Instructions: start on day 2 of therapy No Action atorvastatin 10 mg tablet 10 mg PO DAILY omeprazole 40 mg capsule,delayed release(DR/EC) 20 mg PO ONCE citalopram [Celexa] 20 mg Tablet 20 mg PO DAILY Fish Oil 1,200 mg PO DAILY melatonin 5 mg Tablet 5 mg PO BEDTIME Claritin-D 24 Hour 10-240 mg tablet extended release 24 hr 1 tab PO DAILY multivitamin Tablet 1 tab PO DAILY aripiprazole 2 mg tablet 2 mg PO DAILY Stand Alone Forms: Work/School Release Print Language: Slovenian
--- NOTE | 2024-11-22 02:34 | PC.NURSE ---
Walk test to assess O2, pt stated cruz Arnold-94 reported to BETTY Noriega
[2024-11-22 02:45] VITALS: BP 120/73; PULSE 84; RESP 19; TEMP 36.6; O2SAT 95
[2024-11-22 02:49] VITALS: O2SAT 94
--- NOTE | 2024-11-22 02:49 | PC.NURSE ---
Reviewed discharge instructions with pt, pt verbalized understanding, no sign for respiratory distress.
[2024-11-22 02:53] VITALS: BP 120/74; PULSE 67; RESP 18; TEMP 36.6; O2SAT 94
== END 2024-11-22 02:54 | disposition home or self-care (01) ==
PROVIDERS: Emergency Provider Emergency Medicine; PCP Internal Medicine
DX: J40 Bronchitis, not specified as acute or chronic (principal); R06.02 Shortness of breath; R05.9 Cough, unspecified; R51.9 Headache, unspecified; Z03.818 Encounter for observation for suspected exposure to other biological agents ruled out
CPT/HCPCS: 0241U; 71046; 94640; 99284; 99285

== ENCOUNTER → 2024-11-21 21:40 | Outpatient (BNV) | payer OTHER, SELFPAY | PROVIDERS: PCP Internal Medicine; Visit Provider Radiology Diagnostic Radiology | DX: R06.02 Shortness of breath (principal); R05.9 Cough, unspecified | CPT/HCPCS: 71046 ==

== ENCOUNTER 2024-12-31 09:24 | Outpatient (REF) | payer OTHER, SELFPAY ==
--- NOTE | ~2024-12-31 | XR_ITS ---
EXAMINATION: XR CHEST CLINICAL INFORMATION: SHORTNESS OF BREATH COMPARISON: November 21, 2024. TECHNIQUE: 2 views of the chest were obtained. FINDINGS: Pulmonary reticular nodular pattern. Prominence of the interstitial markings in the perihilar regions. No pleural effusion. No pneumothorax. Cardiomediastinal silhouette size is normal. Multilevel thoracic spondylosis. Bilateral apical lung scarring. XR/XR chest 2V IMPRESSION: Acute on chronic airspace disease. Mild interstitial lung edema cannot be entirely excluded. Electronically signed by: Gokul Couch MD 12/31/2024 09:49 AM EST
--- OUTSIDE RECORDS SUMMARY | 2024-12-31 10:08 | XMS_ITS | Patient Health Record ---
Author Organization [facility] Address [address] [place] [address] Care Team Providers Care Employee Relations Representative Name Role Phone Bharti HERNANDEZ, Macario Primary Care Provider Dylan Serrato Jr Unavailable ALLERGIES Allergen (clinical drug ingredient) Drug/Non Drug [...] Omeprazole 20 MG TAKE 1 CAPSULE BY [facility] DAILY; 30 MINUTES BEFORE MORNING MEAL [...] Problem Colon cancer screening (Z12.11) Active confirmed 311625061 Problem Encounter for other preprocedural examination (Z01.818) Active confirmed 290723865 Problem Other dysphagia (R13.19) Active confirmed 05435978 Problem Gastroesophageal reflux disease (K21.9) Active confirmed Gastroesophagea l reflux disease (829965934) Problem Abnormal CT scan, esophagus (R93.3) Active confirmed 900280924 Problem Pancreatic duct dilated (K86.89) Active confirmed 463809759 Problem Gastroesophageal reflux disease with esophagitis without hemorrhage (K21.00) Active confirmed 972692690 Problem Gastric intestinal metaplasia (K31.A0) Active confirmed 83747006 PLAN OF TREATMENT Pending Test Test Name Order Date Pathology 03/15/2023 Future Test Test Name Order Date COLONOSCOPY 09/26/2019 UPPER GI ENDOSCOPY 12/23/2021 UPPER GI ENDOSCOPY 01/31/2023 Insurance Providers Payer Name Payer Address Payer Phone Subscriber Number Group Number Insured Name Patient Relationship to Insured Coverage Start Date Coverage End Date [facility] [address] [place] [address] [id number] MARYCARMEN WARD Self - patient is the insured 2 MEDICAL (GENERAL) HISTORY Medical History History ICD Code Palpitations microscopic hematuria depression Diverticulitis Colonoscopy 12/27, normal, diverticulosis , ten-year followup Surgical History Surgery Date(Month/Year) basil cell on lip
--- OUTSIDE RECORDS SUMMARY | 2024-12-31 10:09 | XMS_ITS ---
Author Organization Macario Hay MD Address [address] [place] [address] [place] [phone] Care Team Providers Care Admissions Nurse Name Role Phone Macario Hay Primary Care Provider REASON FOR VISIT CXR to be done in 2 weeks Encounters Encounter Location Date Provider Diagnosis Macario Hay MD [address] [place] [address] [address] [place] [phone] 11/27/2024 Macario Hay Plan Of Treatment Next Appt Details Provider Name:Macario Holt ieabril, 04/19/2025 07:30:00 AM, [address] [place] [address], [address], [phone], Provider Name:Macario rodriguez, 04/26/2025 09:15:00 AM, [address] [place] [address], [address], [phone], Provider Name:Macario Holt ieabril, 10/22/2025 07:00:00 AM, [address] [place] [address], [address], [phone], Provider Name:Macario Holt ier, 10/29/2025 09:30:00 AM, [address] [place] [address], [address], [phone], Progress Notes * Braulio REARDON ADOB:[birth year] (59 yo M)Acc No.[id number]:11/27/2024 Patient:?Braulio Reardon :1965???Age:59 Y???Sex:Male Address:[address] [place] [id number] * true * Date:? Generated for Boyd altamirano/Omar/Nadiritting on:?12/31/2024 10:08 AM EST
--- OUTSIDE RECORDS SUMMARY | 2024-12-31 10:09 | XMS_ITS ---
Author Organization Macario Hay MD Address [address] [place] [address] [place] [phone] Care Team Providers Care Chaplain Resident Name Role Phone Macario Hay Primary Care Provider [phone] REASON FOR VISIT ER Encounters Encounter Location Date Provider Diagnosis Macario Hay MD [address] [place] [address] [place] [phone] 11/26/2024 Macario Hay Plan Of Treatment Next Appt Details Provider Name:Macario rodriguez, 04/19/2025 07:30:00 AM, [address] [place] [address], [address] [place] [address], [phone], Provider Name:Macario rodriguez, 04/26/2025 09:15:00 AM, [address] [place] [address], [address] [place] [address], [phone], Provider Name:Macario Holt ieabril, 10/22/2025 07:00:00 AM, [address] [place] [address], [address], [phone], Provider Name:Macario Holt ier, 10/29/2025 09:30:00 AM, [address] [place] [address], [address], [phone], Progress Notes * Braulio REARDON ADOB:[birth year] (59 yo M)Acc No.[id number]:11/26/2024 Patient:?Braulio Reardon :1965???Age:59 Y???Sex:Male Address:[address] [place] [phone] * true * Date:? Generated for Boyd altamirano/Omar/Tito on:?12/31/2024 10:08 AM EST
== END 2024-12-31 09:25 | disposition home or self-care (01) ==
LOC: HO.XRAY 09:24
PROVIDERS: PCP Internal Medicine; Visit Provider Internal Medicine
DX: R06.02 Shortness of breath (principal)
CPT/HCPCS: 71046

== ENCOUNTER → 2024-12-31 09:28 | Outpatient (BNV) | payer OTHER, SELFPAY | PROVIDERS: PCP Internal Medicine; Visit Provider Radiology Diagnostic Radiology | DX: J44.1 Chronic obstructive pulmonary disease with (acute) exacerbation (principal) | CPT/HCPCS: 71046 ==

== ENCOUNTER 2025-01-17 10:36 | Outpatient (REF) | payer OTHER, SELFPAY ==
--- NOTE | ~2025-01-17 | XR_ITS ---
EXAMINATION: XR CHEST 2 VIEWS HISTORY: SOB, SCAR TISSUE COMPARISON: Comparison is made with the prior examination dated 12/31/2024. FINDINGS: PA and lateral views of the chest are submitted. Again seen is fine interstitial prominence without change. No new focal airspace opacity is seen. There is no pleural effusion, pneumothorax, or pulmonary vascular congestion. The heart is normal in size. There is degenerative disc disease of the spine. XR/XR chest 2V IMPRESSION: Prominent interstitial markings without change. No acute cardiopulmonary abnormality. Electronically signed by: Austyn Davila MD 01/17/2025 12:01 PM EDT
--- OUTSIDE RECORDS SUMMARY | 2025-01-17 13:26 | XMS_ITS | Patient Health Record ---
Author Organization [facility] Address [address] [place] [address] Care Team Providers Care Photographer Finish Name Role Phone Bharti HERNANDEZ, Macario Primary Care Provider Dylan Serrato Jr Unavailable [phone] Allergies Allergen (clinical drug ingredient) Drug/Non Drug Allergy documented on EMR Reaction Allergy Type Onset Date Status temazepam Temazepam Unknown Drug Allergy Active Dyphylline-Guaifenesin Unknown Drug Allergy Active Reason For Referral No Information Medications Medication SIG (Take, Route, Frequency, Duration) Notes Start Date End Date Status Multivitamin Adults Active CeleXA 20 MG 1 tablet Orally Once a day Active Aspirin 81 Active Claritin Active Abilify 2 MG 2 tablet Orally Once a day Active Fish Oil Active Omeprazole 20 MG TAKE 1 CAPSULE BY [facility] DAILY; 30 MINUTES BEFORE MORNING MEAL for 30 Active Atorvastatin Calcium 10 MG 1 tablet Oral ly Once a day for 30 day(s) Active Immunizations Vaccine Route Administration Date Status Comme nts Influenza Unknown 08/07/2019 Administered Influenza Unknown 10/07/2021 Administered Influenza Unknown 08/24/2022 Administered Social History Tobacco Use: Social History Observation Description Date Details (start date - stop date) Former Smoker NA - NA Tobacco Use/Smoking Question Answer Notes Patient is a former smoker How long has it been since you last smoked? 1-5 years Alcohol Screen Question Answer Notes Did you have a drink containing alcohol in the p ast year? No Points 0 Interpretation Negative Section Notes: quit tobacco 2020 quit tobacco 2020 Problems Problem Type SNOMED Code ICD Code Onset Dates Problem Status W/U Status Risk Notes Problem 709699215 Colon cancer screening (Z12.11) Active confirmed Problem 592808734 Encounter for other preprocedural examination (Z01.818) Active confirmed Problem 73649066 Other dysphagia (R13.19) Active confirmed Problem Gastroesophageal reflux disease (040306788) Gastroesophageal reflux disease (K21.9) Active confirmed Problem 982060460 Abnormal CT scan , esophagus (R93.3) Active confirmed Problem 096448563 Pancreatic duct dilated (K86.89) Active confirmed Problem 094085763 Gastroesophageal reflux disease with esophagitis without hemorrhage (K21.00) Active confirmed Problem 44801771 Gastric intestin al metaplasia (K31.A0) Active confirmed Plan Of Treatment Pending Test Test Name Order Date Pathology 03/15/2023 Future Test Test Name Order Date COLONOSCOPY 09/26/2019 UPPER GI ENDOSCOPY 12/23/2021 UPPER GI ENDOSCOPY 01/31/2023 Insurance Providers Payer Name Payer Address Payer Phone Subscriber Number Group Number Insured Name Patient Relationship to Insured Coverage Start Date Coverage End Date [facility] [address] [place] [address] [id number] MARYCARMEN WARD Self - patient is the insured 2 Medical (General) History Medical History History ICD Code Palpitations microscopic hematuria depression Diverticulitis Colonoscopy 12/27, normal, diverticulosis , ten-year followup Surgical History Surgery Date(Month/Year) basil cell on lip
--- OUTSIDE RECORDS SUMMARY | 2025-01-17 13:26 | XMS_ITS ---
Author Organization Macario Hay MD Address [address] [place] [address] Drive [address] [place] [phone] Care Team Providers Care Crm Administrator Name Role Phone Macario Hay Primary Care Provider [phone] REASON FOR VISIT needs CT Chest Encounters Encounter Location Date Provider Diagnosis Macario Hay MD [address] [place] [address] [place] [phone] 01/01/2025 Macario Hay Shortness of breath R06.02 and Scar tissue L90.5 Assessments Encounter Date Diagnosis (ICD Code) Assessment Notes Treatment Notes Treatment Clinical Notes Section Notes 01/01/2025 Shortness of breath (ICD-10 - R06.02) 01/01/2025 Scar tissue (ICD-10 - L90.5) Plan Of Treatment Pending Test Test Name Order Date CT CHEST NO CONTRAST 01/01/2025 Next Appt Details Provider Name:Macario rodriguez, 01/31/2025 07:45:00 AM, [address] [place] [address], [address], [phone], Provider Name:Macario rodriguez, 04/19/2025 07:30:00 AM, [address] [place] [address], [address], [phone], Provider Name:Macario rodriguez, 04/26/2025 09:15:00 AM, [address] [place] [address], [address], [phone], Provider Name:Macario rodriguez, 10/22/2025 07:00:00 AM, [address] [place] [address], [address], [phone], Provider Name:Macario Holt ier, 10/29/2025 09:30:00 AM, [address] [facility], [address], [place], [place], [phone], Progress Notes * Braulio REARDON ADOB:[birth year] (59 yo M)Acc No.[id number]:01/01/2025 Patient:?Braulio REARDON A :1965???Age:59 Y???Sex:Male Address:[address] [place] [phone] Subjective: * Chief Complaints: * ???needs CT Chest * Medical History:? * Surgical History:? * Hospitalization/Major Diagno stic Procedure:? * Medications:? Objective: * Vitals:? * Physical Examination:? Assessment: * Assessment: 1.?Shortness of breath - R06 .02???2.?Scar tissue - L90.5??? Plan: * Treatment: 2.?Scar tissue?Imaging: CT CHEST NO CONTRAST * Procedure Codes:? * true * Date:? Generated for Boyd altamirano/Omar/eTransmitting on:?01/17/2025 01:26 PM EDT
--- OUTSIDE RECORDS SUMMARY | 2025-01-17 13:27 | XMS_ITS ---
Author Organization Macario Hay MD Address [address] [place], [place] [phone] Care Team Providers Care Hand Pattern Marker Name Role Phone Macario Hay Primary Care Provider Allergies Allergen (clinical drug ingredient) Drug/Non Drug Allergy documented on EMR Reaction Allergy Type Onset Date Status temazepam Temazepam sleep walking Drug Allergy Act nayeli REASON FOR VISIT weight loss Medications Medication SIG (Take, Route, Frequency, Duration) Notes Start Date End Date Status Loratadine-D 24HR 10-240 MG 1 tablet as needed Orally Once a day for 30 day(s) Not-Taking Ventolin HFA * 108 (90 Base) MCG/ACT 2 puffs as needed Inhalation every 4 hrs for 30 day(s) 01/19/2021 Not-Taking ProAir HFA 108 (90 Base) MCG/ACT 2 puffs as needed Inhalation every 6 hrs for 24 Not-Taking Levaquin 500 MG 1 tablet Orally Once a day for 10 day(s) Not-Taking metroNIDAZOLE 250 MG 1 tablet Orally Twi ce a day Not-Taking CeleXA 20 MG 1 tablet Orally Once a day 04/12/2019 Active Nicotine 21 MG/24HR APPLY 1 PATCH TOPICA LLY TO CLEAN DRY SKIN ONCE A DAY for 30 Not-Taking Atorvastatin Calcium 10 MG TAKE 1 TABLET BY MOUTH ONCE A DAY. Active Abilify 2 MG 2 tablets Orally Onc e a day Active Nicotine Step 3 7 MG/24HR 1 patch to ski n Transdermal Once a day 04/27/2024 Not-Takin g Albuterol Sulfate HFA 108 (90 Base) MCG/ACT 1 puff as needed Inhalation every 4 hrs for 90 days 06/30/2023 Active Fish Oil 1000 MG 1 capsule [...] Once a day for 30 day(s) Active Vital Signs Blood pressure systolic 118 mm Hg 12/31/19 25 Blood pressure diastolic 78 mm Hg 025 Height 69 in 12/31/2024 Weight 217 lbs 12/31/2024 BMI 32.04 kg/m2 12/31/2024 Encounters Encounter Location Date Provider Diagnosis Macario Hay MD [address] [place] [address] [place] [phone] 12/31/2024 Macario Hay Viral pneumonitis J12.9 and Weight loss R63.4 Assessments Encounter Date Diagnosis (ICD Code) Assessment Notes Treatment Notes Treatment Clinical Notes Section Notes 12/31/2024 Viral pneumonitis (ICD-10 - J12.9) will repeat cxr today/ order already in system, order given to patient 12/31/2024 Weight loss (ICD-10 - R63.4) patient was concerned that he had a weight loss of 23 pounds but our scale shows it to be only one pound and he is relieved Plan Of Treatment Treatment Notes Assessment Notes Viral pneumonitis will repeat cxr toda y/ order already in system, order given to patient Weight loss patient was concerne d that he had a weight loss of 23 pounds but our scale shows it to be only one pound and he is relieved Next Appt Details Provider Name:Macario rodriguez, 01/31/2025 07:45:00 AM, [address] [place] [address], Suite [facility], [place], [place], [phone], Provider Name:Macario rodriguez, 04/19/2025 07:30:00 AM, [address] [place] [address], [address] [place] [address], [phone], Provider Name:Macario rodriguez, 04/26/2025 09:15:00 AM, [address] [place] [address], [address], [place], [phone], Provider Name:Macario Holt ier, 10/22/2025 07:00:00 AM, [address] [facility], Suite [facility], [place], [phone], Provider Name:Macario Holt ier, 10/29/2025 09:30:00 AM, [address] [facility], Suite [facility], [place], [phone], Progress Notes * Chilo REARDONmond ADOB:[birth year] (59 yo M)Acc No.[id number]:12/31/2024 Progress Notes Patient:?Braulio REARDON A Provider:?Macario Hay MD :1965???Age:59 Y???Sex:Male Timothy e:12/31/2024 Address:[address] [place], [place] [phone] Subjective: * Chief Complaints: * ???Weight loss * HPI: ???Symptom(s):?patient is a 59 yo male here for isue with? weight loss. scale showed 23 pound weight loss. only one pound. * ROS:?General/Constitutional:?Denies?Chills.?Denies?Fatigue.?Denies?Fever.?Denies?Headache.?ENT:?Patient denies?decreased sense of smell, any loss of taste, sore throat.?Denies?Sore throat.?Respiratory:?Denies?Cough.?Denies?Shortness of breath at rest.?Denies?Shortness of breath with exertion.?Gastrointestinal:?Denies?Diarrhea.?Denies?Nausea.?Musculoskeletal:?Patient denies?muscle aches.?Peripheral Vascular:?Patient denies?red and blue toes.? * Medical History:? * Surgical History:? * Hospitalization/Major Diagno stic Procedure:? * Medications:?TakingFlonase A llergy Relief 50 MCG/ACT Suspension 1 spray in each nostril Nasally Once a day Claritin 10 MG Tablet 1 tablet Orally Once a day Melatonin 5 MG Tablet 1 tablet in the evening Orally Once a day Multi For Him - Capsule as directed Orally Fish Oil 1000 MG Capsule 1 capsule Orally Once a day Albuterol Sulfate HFA 108 (90 Base) MCG/ACT Aerosol Solution 1 puff as needed Inhalation every 4 hrs Nicotine 14 MG/24HR Patch 24 Hour APPLY 1 PATCH TOPICALLY TO CLEAN DRY SKIN ONCE DAILY CeleXA 20 MG Tablet 1 tablet Orally Once a day Abilify 2 MG Tablet 2 tablets Orally Once a day Atorvastatin Calcium 10 MG Tablet TAKE 1 TABLET BY MOUTH ONCE A DAY. Taking Flonase Allergy Relief 50 MCG/ACT Suspension 1 spray in each nostril Nasally Once a day Taking Claritin 10 MG Tablet 1 tablet Orally Once a day Taking Melatonin 5 MG Tablet 1 tablet in the evening Orally Once a day Taking Multi For Him - Capsule as directed Orally Taking Fish Oil 1000 MG Capsule 1 capsule Orally Once a day Taking Albuterol Sulfate HFA 108 (90 Base) MCG/ACT Aerosol Solution 1 puff as needed Inhalation every 4 hrs Taking Nicotine 14 MG/24HR Patch 24 Hour APPLY 1 PATCH TOPICALLY TO CLEAN DRY SKIN ONCE DAILY Taking CeleXA 20 MG Tablet 1 tablet Orally Once a day Taking Abilify 2 MG Tablet 2 tablets Orally Once a day Taking Atorvastatin Calcium 10 MG Tablet TAKE 1 TABLET BY MOUTH ONCE A DAY. Not-Taking/PRNNicotine 21 MG/24HR Patch 24 Hour APPLY 1 PATCH TOPICALLY TO CLEAN DRY SKIN ONCE A DAY Nicotine Step 3 7 MG/24HR Patch 24 Hour 1 patch to skin Transdermal Once a day ProAir HFA 108 (90 Base) MCG/ACT Aerosol Solution 2 puffs as needed Inhalation every 6 hrs metroNIDAZOLE 250 MG Tablet 1 tablet Orally Twice a day Levaquin 500 MG Tablet 1 tablet Orally Once a day Loratadine-D 24HR 10-240 MG Tablet Extended Release 24 Hour 1 tablet as needed Orally Once a day Ventolin HFA * 108 (90 Base) MCG/ACT Aerosol Solution 2 puffs as needed Inhalation every 4 hrs Medication List reviewed and reconciled with the patientNot-Taking/PRN Nicotine 21 MG/24HR Patch 24 Hour APPLY 1 PATCH TOPICALLY TO CLEAN DRY SKIN ONCE A DAY Not-Taking/PRN Nicotine Step 3 7 MG/24HR Patch 24 Hour 1 patch to skin Transdermal Once a day Not- Taking/PRN ProAir HFA 108 (90 Base) MCG/ACT Aerosol Solution 2 puffs as needed Inhalation every 6 hrs Not-Taking/PRN metroNIDAZOLE 250 MG Tablet 1 tablet Orally Twice a day Not-Taking/PRN Levaquin 500 MG Tablet 1 tablet Orally Once a day Not-Taking/PRN Loratadine-D 24HR 10-240 MG Tablet Extended Release 24 Hour 1 tablet as needed Orally Once a day Not-Taking/PRN Ventolin HFA * 108 (90 Base) MCG/ACT Aerosol Solution 2 puffs as needed Inhalation every 4 hrs Medication List reviewed and reconciled with the patient * Allergies:?Temazepam: sleep walking - Allergy Objective: * Vitals:?Ht: 69, Wt: 217, BMI :32.04, BP:118/78, Wt-k.43. * Examination: ???General Examination: ?GENERAL APPEARANCE:?alert, well hydrated, in no distress.?HEAD:?normocephalic.?SKIN:?good turgor.?HEART:?regular rate and rhythm, no murmurs, rubs, gallops.?LUNGS:?clear to auscultation bilaterally.? Assessment: * Assessment: 1.?Viral pneumonitis - J12.9 (Primary)???2.?Weight loss - R63.4??? Plan: * Treatment: 2.?Weight loss? Notes: patient was concerned that he had a weight loss of 23 pounds but our scale shows it to be only one pound and he is relieved?? * Procedure Codes:? * * Sign off status: Completed true * Provider:?Macario Hay MD Date:?0 12/31/2024 Generated for Boyd altamirano/Omar/Tito on:?01/17/2025 01:26 PM EDT History and Physical Notes * HPI (History of Present Illness) Category Sub-Category Detail Notes Category Not es Symptom(s) patient is a 59 yo male here for isue with weight loss. scale showed 23 pound weight loss. only one pound Examination Category Sub-Category Detail Notes Category Not es General Examination GENERAL APPEARANCE: alert, w ell hydrated, in no distress HEAD: normocephalic HEART: regular rate and rhy thm, no murmurs, rubs, gallops LUNGS: clear to auscultatio n bilaterally SKIN: good turgor
--- OUTSIDE RECORDS SUMMARY | 2025-01-17 13:27 | XMS_ITS ---
Author Organization Macario Hay MD Address [address] [place] [address] [address] [place] [phone] Care Team Providers Care Deliverer Outside Name Role Phone Macario Hay Primary Care Provider REASON FOR VISIT P-A Chest CT Scan Encounters Encounter Location Date Provider Diagnosis Macario Hay MD [address] [place] [address] [place] [phone] 01/01/2025 Macario Hay Shortness of breath R06.02 and Scar tissue L90.5 Assessments Encounter Date Diagnosis (ICD Code) Assessment Notes Treatment Notes Treatment Clinical Notes Section Notes 01/01/2025 Shortness of breath (ICD-10 - R06.02) 01/01/2025 Scar tissue (ICD-10 - L90.5) Plan Of Treatment Pending Test Test Name Order Date XR chest 2V 01/01/2025 Next Appt Details Provider Name:Macario rodriguez, 01/31/2025 07:45:00 AM, [address] [place] [address], [address], [phone], Provider Name:Macario rodriguez, 04/19/2025 07:30:00 AM, [address] [place] [address], [address], [phone], Provider Name:Macario rodriguez, 04/26/2025 09:15:00 AM, [address] [place] [address], [address], [phone], Provider Name:Macario rodriguez, 10/22/2025 07:00:00 AM, [address] [place] [address], [address], [place], [phone], Provider Name:Macario Holt ier, 10/29/2025 09:30:00 AM, [address] [facility], [address], [place], [phone], Progress Notes * Braulio REARDON ADOB:[birth year] (59 yo M)Acc No.[id number]:01/01/2025 Patient:?Braulio REARDON A :1965???Age:59 Y???Sex:Male Address:[address] [place] [phone] Subjective: * Chief Complaints: * ???P-A Chest CT Scan * Medical History:? * Surgical History:? * Hospitalization/Major Diagno stic Procedure:? * Medications:? Objective: * Vitals:? * Physical Examination:? Assessment: * Assessment: 1.?Shortness of breath - R06 .02???2.?Scar tissue - L90.5??? Plan: * Treatment: 2.?Scar tissue?Imaging: XR chest 2V* Due to have this done 2nd we ek in january. Order mailed to patient * Procedure Codes:? * true * Date:? Generated for Boyd altamirano/Omar/eTransmitting on:?01/17/2025 01:26 PM EDT
== END 2025-01-17 10:37 | disposition home or self-care (01) ==
LOC: HO.XRAY 10:36
PROVIDERS: PCP Internal Medicine; Visit Provider Internal Medicine
DX: R06.02 Shortness of breath (principal); L90.5 Scar conditions and fibrosis of skin
CPT/HCPCS: 71046

== ENCOUNTER → 2025-01-17 10:42 | Outpatient (BNV) | payer OTHER, SELFPAY | PROVIDERS: PCP Internal Medicine; Visit Provider Radiology Diagnostic Radiology | DX: R06.02 Shortness of breath (principal) | CPT/HCPCS: 71046 ==

== ENCOUNTER 2025-07-07 16:32 | Emergency (ER) | payer OTHER, SELFPAY ==
--- OUTSIDE RECORDS SUMMARY | 2025-01-31 03:45 | XMS_ITS ---
Author Organization Macario Hay MD Address [address] [place], [place] [phone] Care Team Providers Care Pharmacy Benefits Coordinator Name Role Phone Macario Hay Primary Care Provider Allergies Allergen (clinical drug ingredient) Drug/Non Drug Allergy documented on EMR Reaction Allergy Type Onset Date Status Information temporarily unavailable Temazepam sleep walking Drug Allergy Active REASON FOR VISIT CBACK CHEST XRAY Medications Medication SIG (Take, Route, Frequency, Duration) Notes Start Date End Date Status Melatonin 5 MG 1 tablet in the even ing Orally Once a day for 30 day(s) Active Multi For Him - as directed Orally Active Fish Oil 1000 MG 1 capsule Orally Onc e a day for 30 day(s) Active Albuterol Sulfate HFA 108 (90 Base) MCG/ACT 1 puff as needed Inhalation every 4 hrs for 90 days 06/30/2023 Active Levaquin 500 MG 1 tablet Orally Once a day for 10 day(s) Not-Taking Loratadine-D 24HR 10-240 MG 1 tablet as needed Orally Once a day for 30 day(s) Not-Taking Ventolin HFA * 108 (90 Base) MCG/ACT 2 puffs as needed Inhalation every 4 hrs for 30 day(s) 01/19/2021 Not-Taking Flonase Allergy Relief 50 MCG/ACT 1 spray in each nostril Nasally Once a day for 30 day(s) Active Claritin 10 MG 1 tablet Orally Once a day for 30 day(s) Active metroNIDAZOLE 250 MG 1 tablet Orally Twi ce a day Not-Taking Atorvastatin Calcium 10 MG TAKE 1 TABLET BY MOUTH ONCE A DAY. Active Nicotine 21 MG/24HR APPLY 1 PATCH TOPICA LLY TO CLEAN DRY SKIN ONCE A DAY for 30 Not-Taking Nicotine Step 3 7 MG/24HR 1 patch to ski n Transdermal Once a day 04/27/2024 Not-Takin g ProAir HFA 108 (90 Base) MCG/ACT 2 puffs as needed Inhalation every 6 hrs for 24 Not-Taking CeleXA 20 MG 1 tablet Orally Once a day 04/12/2019 Active Abilify 2 MG 2 tablets Orally Onc e a day Active Problems Problem Type SNOMED Code ICD Code Onset Dates Problem Status W/U Status Risk Notes Problem Information temporarily unavailable Interstitial fibrosis (J84.10) Active confirmed Vital Signs Blood pressure systolic 104 mm Hg 02/01/20 25 Blood pressure diastolic 66 mm Hg 025 Height 69 in 01/31/2025 Weight 218 lbs 01/31/2025 BMI 32.19 kg/m2 01/31/2025 Encounters Encounter Location Date Provider Diagnosis Macario Hay MD [address] [place] [address] [place] [phone] 01/31/2025 Macario Hay Interstitial fibrosi s J84.10 Assessments Encounter Date Diagnosis (ICD Code) Assessment Notes Treatment Notes Treatment Clinical Notes Section Notes 01/31/2025 Interstitial fibrosis (ICD-10 - J84.10) discussed findings of recent CXR with patient and necesary follow up. 01/31/2025 Other ORDER PRINTED FOR FUTURE FOLDER Plan Of Treatment Treatment Notes Assessment Notes Interstitial fibrosis discussed findings of recent CXR with patient and necesary follow up. Other ORDER PRINTED FOR FU TURE FOLDER Future Test Test Name Order Date XR CHEST 2 VIEW PA & LAT 08/03/2025 Next Appt Details Follow Up: 6 Months, Reason: Provider Name:Macario rodriguez, 09/03/2025 07:45:00 AM, [address] [place] [address], Suite [facility], [place], [place], [phone], Provider Name:Macario rodriguez, 09/10/2025 10:30:00 AM, [address] [place] [address], Suite [facility], [place], [place], [phone], Progress Notes * Braulio REARDON ADOB:[birth year] (59 yo M)Acc No.[id number]:01/31/2025 Patient: Braulio BECERRA Provider: Ramón Hay MD :1965 A ge:59 Y S ex:Male Date:01/31/2025 Address:[address] [place] [address] [facility] [place] RE-[id number] Subjective: * Chief Complaints: * C BACK CHEST XRAY * HPI: S ymptom(s): patient is a 59 yo male here for follow up to recent chest xray. * ROS: G eneral/Constitutional: Denies C hills. D enies F atigue. D enies F ever. D enies H eadache. E NT: Denies S ore throat. R espiratory: Denies C ough. D enies S hortness of breath at rest. D enies S hortness of breath with exertion. G astrointestinal: Denies D iarrhea. D enies N ausea. * Medical History: * Surgical History: * Hospitalization/Major Diagno stic Procedure: * Medications: T akingFlonase Allergy Relief 50 MCG/ACT Suspension 1 spray [...] puff as needed Inhalation every 4 hrs CeleXA 20 MG Tablet 1 tablet Orally [...] as needed Inhalation every 4 hrs Taking CeleXA 20 MG Tablet 1 tablet [...] puffs as needed Inhalation every 4 hrs Not-Taking/PRN Nicotine 21 MG/24HR Patch 24 Hour APPLY 1 PATCH TOPICALLY TO CLEAN DRY SKIN ONCE A DAY Not-Taking/PRN Nicotine Step 3 7 MG/24HR Patch 24 Hour 1 patch to skin Transdermal Once a day Not-Taking/PRN ProAir HFA 108 (90 Base) MCG/ACT Aerosol Solution 2 puffs as needed Inhalation every 6 hrs Not-Taking/PRN metroNIDAZOLE 250 MG Tablet 1 tablet Orally Twice a day Not- Taking/PRN Levaquin 500 MG Tablet 1 tablet Orally Once a day Not-Taking/PRN Loratadine-D 24HR 10-240 MG Tablet Extended Release 24 Hour 1 tablet as needed Orally Once a day Not-Taking/PRN Ventolin HFA * 108 (90 Base) MCG/ACT Aerosol Solution 2 puffs as needed Inhalation every 4 hrs DiscontinuedNicotine 14 MG/24HR Patch 24 Hour APPLY 1 PATCH TOPICALLY TO CLEAN DRY SKIN ONCE DAILY Medication List reviewed and reconciled with the patientDiscontinued Nicotine 14 MG/24HR Patch 24 Hour APPLY 1 PATCH TOPICALLY TO CLEAN DRY SKIN ONCE DAILY Medication List reviewed and reconciled with the patient * Allergies: T emazepam: sleep walking - Allergyyes[Allergies Verified] Objective: * Vitals: H t: 69, Wt: 218, BMI:32.19, BP:104/66, Wt-k.88. * Examination: G eneral Examination: GENERAL APPEARANCE: a lert, well hydrated, in no distress.? HEART: n o murmurs, rubs, gallops. LUNGS: c lear to auscultation bilaterally. Assessment: * Assessment: 1. I nterstitial fibrosis - J84.10 (Primary) Plan: * Treatment: 2. O thers Notes: ORDER PRINTED FOR FUTURE FOLDER * Procedure Codes: * Follow Up: 6 Months * * Sign off status: Completed true * Provider: Ramón Hay MD Date: 0 01/31/2025 Generated for Melii evelia/Omar/eTransmitting on: 0 07/07/2025 07:40 PM EDT History and Physical Notes * HPI (History of Present Illness) Category Sub-Category Detail Notes Category Not es Symptom(s) patient is a 59 yo male here for follow up to recent chest xray Examination Category Sub-Category Detail Notes Category Not es General Examination GENERAL APPEARANCE: alert, w ell hydrated, in no distress HEART: no murmurs, rubs, ga llops LUNGS: clear to auscultatio n bilaterally
--- OUTSIDE RECORDS SUMMARY | 2025-04-15 05:51 | XMS_ITS ---
Author Organization Macario Hay MD Address [address] [place] [phone] Care Team Providers Care Fishing Floats Assembler Name Role Phone Macario Hay Primary Care Provider REASON FOR VISIT Moved to [place] Encounters Encounter Location Date Provider Diagnosis Macario Hay MD [address] [place] [address] [address] [place] [phone] 04/15/2025 Macario Hay Plan Of Treatment Next Appt Details Provider Name:Macario Holt ier, 09/03/2025 07:45:00 AM, [address] [place] [address], Suite [facility], [place], [place], [phone], Provider Name:Macario Holt ier, 09/10/2025 10:30:00 AM, [address] [place] [address], Suite [facility], [place], [place], [phone], Progress Notes * Braulio REARDON ADOB:[birth year] (59 yo M)Acc No.[id number]:04/15/2025 Patient: Halima VJ Braulio Simmons :1965 A ge:59 Y S ex:Male Address:[address] [place] [phone] * true * Date: Generated for Boyd altamirano/Angelg/eTransmitting on: 0 07/07/2025 07:41 PM EDT
--- OUTSIDE RECORDS SUMMARY | 2025-04-19 03:30 | XMS_ITS ---
Author Organization Macario Hay MD Address [address] [place] [phone] Care Team Providers Care Daycare Worker Name Role Phone Macario Hay Primary Care Provider [phone] REASON FOR VISIT fasting lipids Encounters Encounter Location Date Provider Diagnosis Macario Hay MD [address] [place] [phone] 04/19/2025 Macario Hay Elevated cholesterol E78.00 Assessments Encounter Date Diagnosis (ICD Code) Assessment Notes Treatment Notes Treatment Clinical Notes Section Notes 04/19/2025 Elevated cholesterol (ICD-10 - E78.00) Plan Of Treatment Pending Test Test Name Order Date Liver Panel 04/19/2025 Lipid Panel with Reflex 04/19/2025 Next Appt Details Provider Name:Macario rodriguez, 09/03/2025 07:45:00 AM, [address] [place] [address], [address], [phone], Provider Name:Macario Holt ieabril, 09/10/2025 10:30:00 AM, [address] [place] [address], [address], [phone], Progress Notes * Braulio REARDON ADOB:[birth year] (60 yo M)Acc No.[id number]:04/19/2025 Progress Note Patient: Braulio BECERRA Provider: Ramón Hay MD :1965 A ge:59 Y S ex:Male Date:04/19/2025 Address:[address] [place] [phone] Subjective: * Chief Complaints: * 1 . [...] 04/19/2025 Generated for Boyd altamirano/Omar/Nadiritting on: 0 07/07/2025 07:44 PM EDT
--- OUTSIDE RECORDS SUMMARY | 2025-06-18 11:00 | XMS_ITS ---
Author Organization Macario Hay MD Address [address] [place], [place] [id number] Care Team Providers Care Hand Sewer Shoes Name Role Phone Macario Hay Primary Care Provider Allergies Allergen (clinical drug ingredient) Drug/Non Drug Allergy documented on EMR Reaction Allergy Type Onset Date Status Information temporarily unavailable Temazepam sleep walking Drug Allergy Active REASON FOR VISIT LUMP IN GROIN left side x 2 week, Went to Urgent Care on [address] last week when Dr Hay was on vacation Medications Medication SIG (Take, Route, Frequency, Duration) Notes Start Date End Date Status Flonase Allergy Relief 50 MCG/ACT 1 spray in each nostril Nasally Once a day for 30 day(s) Active Doxycycline Monohydrate 100 MG 1 tablet Orally twice a day Active Ventolin HFA * 108 (90 Base) MCG/ACT 2 puffs as needed Inhalation every 4 hrs for 30 day(s) 01/19/2021 Not-Taking Melatonin 5 MG 1 tablet in the even ing Orally Once a day for 30 day(s) Active Claritin 10 MG 1 tablet Orally Once a day for 30 day(s) Active metroNIDAZOLE 250 MG 1 tablet Orally Twi ce a day Not-Taking ProAir HFA 108 (90 Base) MCG/ACT 2 puffs as needed Inhalation every 6 hrs for 24 Not-Taking Loratadine-D 24HR 10-240 MG 1 tablet as needed Orally Once a day for 30 day(s) Not-Taking Levaquin 500 MG 1 tablet Orally Once a day for 10 day(s) Not-Taking Nicotine Step 3 7 MG/24HR 1 patch to ski n Transdermal Once a day 04/27/2024 Not-Takin g Atorvastatin Calcium 10 MG TAKE 1 TABLET BY MOUTH ONCE A DAY. Active Abilify 2 MG 2 tablets Orally Onc e a day Active Nicotine 21 MG/24HR APPLY 1 PATCH TOPICA LLY TO CLEAN DRY SKIN ONCE A DAY for 30 Not-Taking CeleXA 20 MG 1 tablet Orally Once a day 04/12/2019 Active Albuterol Sulfate HFA 108 (90 Base) MCG/ACT 1 puff as needed Inhalation every 4 hrs for 90 days 06/30/2023 Active Fish Oil 1000 MG 1 capsule Orally Onc e a day for 30 day(s) Active Multi For Him - as directed Orally Active Vital Signs Blood pressure systolic 120 mm Hg 06/18/20 25 Blood pressure diastolic 80 mm Hg 025 Height 69 in 06/18/2025 Weight 222 lbs 06/18/2025 BMI 32.78 kg/m2 06/18/2025 weight is up 4 pounds since 01-31-25 Encounters Encounter Location Date Provider Diagnosis Macario Hay MD [address] [place] [phone] 06/18/2025 Macario Hay Abscess L02.91 Assessments Encounter Date Diagnosis (ICD Code) Assessment Notes Treatment Notes Treatment Clinical Notes Section Notes 06/18/2025 Abscess (ICD-10 - L02.91) appears to be resolving. will observe Plan Of Treatment Treatment Notes Assessment Notes Abscess appears to be resolv ing. will observe Next Appt Details Follow Up: 3 Months, Reason: complete Provider Name:Macario rodriguez, 09/03/2025 07:45:00 AM, [address] [place] [address], [address], [phone], Provider Name:Macario rodriguez, 09/10/2025 10:30:00 AM, [address] [place] [address], [address], [phone], Progress Notes * Braulio REARDON ADOB:[birth year] (60 yo M)Acc No.[id number]:06/18/2025 Progress Notes Patient: Halima ZABALA Braulio Simmons Provider: Ramón Hay MD :1965 A ge:59 Y S ex:Male Date:06/18/2025 Address:[address] [place] [address], [facility], [id number] Subjective: * Chief Complaints: * L UMP IN GROIN left side x 2 weekW[address] to Urgent Care on [address] last week when Dr Hay was on vacation * HPI: S ymptom(s): patient is a 59 yo male here for complaint of lump on the groin/ went to walk in and they said it was an absecss. * ROS: G eneral/Constitutional: Denies C hills. D enies F atigue. D enies F ever. D enies H eadache. E NT: Denies S ore throat. R espiratory: Denies Ruslan ough. D enies S hortness of breath at rest. D enies S hortness of breath with exertion. G astrointestinal: Denies D iarrhea. D enies N ausea. * Medical History: * Surgical History: * Hospitalization/Major Diagno stic Procedure: * Medications: T akingDoxycycline Monohydrate 100 MG Tablet 1 tablet Orally twice a day Flonase Allergy Relief 50 MCG/ACT Suspension 1 [...] TABLET BY MOUTH ONCE A DAY. Taking Doxycycline Monohydrate 100 MG Tablet 1 tablet Orally twice a day Taking Flonase Allergy Relief 50 MCG/ACT Suspension [...] tablet as needed Orally Once a day Not- Taking/PRN Ventolin HFA * 108 (90 Base) MCG/ACT Aerosol Solution 2 puffs as needed Inhalation every 4 hrs Medication List reviewed and reconciled with the patient * Allergies: T emazepam: sleep walking - Allergyyes[Allergies Verified] Objective: * Vitals: H t: 69, Wt: 222, BMI:32.78, BP:120/80, Wt-k.7. weight is up 4 pounds since 01-31-25. * Examination: G eneral Examination: GENERAL APPEARANCE: a lert, well hydrated, in no distress.? HEAD: n ormocephalic. SKIN: g ood turgor. HEART: n o murmurs, rubs, gallops, regular rate and rhythm.? LUNGS: n o wheezes, rales, rhonchi, good air movement, clear to auscultation bilaterally. MUSCULOSKELETAL: a bnormal left inguinal crease with a small abscess that appears small enough to treat with antibiotics. Assessment: * Assessment: 1. A bscess - L02.91 (Primary) Plan: * Treatment: * Procedure Codes: * Follow Up: 3 Months (Reason: complete) * * Sign off status: Completed true * Provider: Ramón Hay MD Date: 0 06/18/2025 Generated for Boyd altamirano/Omar/Nadiritting on: 0 07/07/2025 07:42 PM EDT History and Physical Notes * HPI (History of Present Illness) Category Sub-Category Detail Notes Category Not es Symptom(s) patient is a 59 yo male here for complaint of lump on the groin/ went to walk in and they said it was an absecss Examination Category Sub-Category Detail Notes Category Not es General Examination GENERAL APPEARANCE: alert, w ell hydrated, in no distress HEAD: normocephalic HEART: no murmurs, rubs, ga llops, regular rate and rhythm LUNGS: no wheezes, rales, r honchi, good air movement, clear to auscultation bilaterally SKIN: good turgor MUSCULOSKELETAL: abnormal left inguin al crease with a small abscess that appears small enough to treat with antibiotics
--- OUTSIDE RECORDS SUMMARY | 2025-06-25 04:37 | XMS_ITS ---
Author Organization Macario Hay MD Address [address] [place] [phone] Care Team Providers Care Export Sales Assistant Name Role Phone Macario Hay Primary Care Provider REASON FOR VISIT refill Medications Medication SIG (Take, Route, Frequency, Duration) Notes Start Date End Date Status Atorvastatin Calcium 10 MG TAKE 1 TABLET BY MOUTH ONCE A DAY. for 90 days Active Encounters Encounter Location Date Provider Diagnosis Macario Hay MD [address] [place] [phone] 06/25/2025 Macario Hay Elevated cholesterol E78.00 Assessments Encounter Date Diagnosis (ICD Code) Assessment Notes Treatment Notes Treatment Clinical Notes Section Notes 06/25/2025 Elevated cholesterol (ICD-10 - E78.00) Plan Of Treatment Medication Medication Name Sig Start Date Stop Date Notes Atorvastatin Calcium 10 MG TAKE 1 TABLET BY MOUTH ONCE A DAY. for 90 days Next Appt Details Provider Name:Macario rodriguez, 09/03/2025 07:45:00 AM, [address] [place] [address], [address], [phone], Provider Name:Macario rodriguez, 09/10/2025 10:30:00 AM, [address] [place] [address], [address], [phone], Progress Notes * Braulio REARDON ADOB:[birth year] (60 yo M)Acc No.[id number]:06/25/2025 Patient: Halima Braulio ZABALA :1965 A ge:60 Y S ex:Male Address:[address] [place] [phone] * Refills Refill Atorvastatin Calcium Tablet, 10 MG, 90, TAKE 1 TABLET BY MOUTH ONCE A DAY., 90 days, Refills=3 * true * Date: Generated for Boyd altamirano/Omar/Tito on: 0 07/07/2025 07:41 PM EDT
--- NOTE | ~2025-07-07 | CT_ITS ---
CLINICAL HISTORY: pain LLQ, diverticulitis? CT abdomen and pelvis with contrast Comparison: CT/SR - CT ABDOMEN PELVIS UROGRAPHY WITHOUT THEN WITH IV CONTRAST - 05/25/24 08:56 EDT Findings: Mild bilateral basilar dependent atelectasis. No pleural effusion. Unremarkable gallbladder. No biliary ductal dilatation. Low-attenuation of the liver parenchyma suggestive of steatosis. The spleen and pancreas are unremarkable. Bilateral adrenal thickening. Enhancement of bilateral kidneys with no stones along the course of the ureters and no hydronephrosis or hydroureter. Bilateral small renal cysts the largest 1.5 cm. No bowel obstruction, pneumoperitoneum, or pneumatosis. Diverticulosis especially in the descending and sigmoid colon. There is sigmoid colon wall thickening with no adjacent inflammatory changes no abscess. No free fluid. Pelvic contents unremarkable. Normal appendix. Small fat containing umbilical and left inguinal hernias. Abdominal aorta normal in size. No acute fracture. IMPRESSION: 1. Diverticulosis with sigmoid colon wall thickening and no adjacent inflammatory changes or an abscess. 2. Hepatic steatosis. 3. Bilateral small renal cysts. 4. Small fat containing umbilical and left inguinal hernias. This document has been electronically signed by: Carol Rosa MD on 07/08/2025 00:06:41
[2025-07-07 16:50] VITALS: BP 128/75; PULSE 100; RESP 18; TEMP 36.9; O2SAT 92; BMI 31.5
--- NOTE | 2025-07-07 16:50 | ED.GENADULT ---
HPI - General Adult General Chief complaint: GI Bleed Stated complaint: blood in stool Time Seen by Provider: 07/07/25 21:04 Source: patient Limitations: no limitations History of Present Illness ED Provider: Ana Lora PA-C HPI narrative: 60-year-old male with a known diverticulosis with prior diverticulitis, known LVH, hyperlipidemia, COPD and GERD, who presents with bright red blood per rectum since yesterday. Patient states he had a large bloody bowel movement yesterday. Today, he has been having some lower abdominal discomfort, left greater than right. Denies nausea vomiting or fever. Patient has not had additional episodes today. He denies the presence of hemorrhoids. Related Data Home Medications ?Medication ?Instructions ?Recorded ?Confirmed multivitamin 1 tab PO DAILY 11/27/21 11/23/24 aripiprazole 2 mg tablet 2 mg PO DAILY 01/13/23 11/23/24 atorvastatin 10 mg tablet 10 mg PO DAILY 01/13/23 11/23/24 Fish Oil 1,200 mg PO DAILY 03/14/23 11/23/24 citalopram 20 mg tablet (Celexa) 20 mg PO DAILY 03/14/23 11/23/24 melatonin 5 mg tablet 5 mg PO BEDTIME 03/15/23 11/23/24 loratadine-pseudoephedrine ER 10 1 tab PO DAILY 12/19/23 11/23/24 mg-240 mg tablet,extended [id number] (Claritin-D 24 Hour) omeprazole 40 mg capsule,delayed 20 mg PO ONCE 11/21/24 11/23/24 release Previous Rx's ?Medication ?Instructions ?Recorded albuterol sulfate 90 mcg/actuation 2 puff inhalation Q4-6H PRN 11/22/24 aerosol inhaler shortness of breath or wheezing #8.5 grams amoxicillin 875 mg-potassium 1 tab PO BID #19 tabs 11/22/24 clavulanate 125 mg tablet azithromycin 250 mg tablet 250 mg PO DAILY 4 days #4 tabs 11/22/24 prednisone 20 mg tablet 40 mg (2 x 20 mg) PO DAILY #10 tabs 11/22/24 Allergies Allergy/AdvReac Type Severity Reaction Status Date / Time temazepam (TEMAZEPAM) Allergy Unknown SLEEPWALKIN Verified 07/07/25 16:51 G diphenhydramine (From Allergy twitching Verified 07/07/25 16:51 Benadryl) feathers Allergy Hives Verified 07/07/25 16:51 Review of Systems Review of Systems: Yes all other systems are reviewed and are negative Constitutional: Constitutional: Denies fatigue and Denies fever(s) Cardiovascular: Cardiovascular: Denies chest pain and Denies dyspnea Respiratory: Respiratory: Denies cough and Denies dyspnea Gastrointestinal: Gastrointestinal: Reports abdominal pain, Reports hematochezia, Denies constipation, Denies diarrhea, Denies nausea and Denies vomiting Endocrine: Endocrine: Denies fatigue [facility] Past Medical History Attestation statement: The following information was validated with the patient. Medical History (Updated 07/09/25 @ 00:01 by [facility]) Microscopic hematuria Depression H. pylori infection GERD (gastroesophageal reflux disease) COPD (chronic obstructive pulmonary disease) Elevated cholesterol Elevated AFP History of diverticulitis History of depression Palpitations Personal history of nicotine dependence Pulmonary nodules Surgical History History of esophagogastroduodenoscopy (EGD) Hx of basal cell carcinoma excision Hx of colonoscopy Family History Family History Father No problems noted. Mother Lung cancer Social History Social History Alcohol intake: current Alcohol intake frequency: does not drink Patient Tobacco Use Status: Former Tobacco user Cigarettes Per Day: 15 Years Smoked: 37 Physical Exam ED Vital Signs: Vital Signs - 24 hr 07/07/25 16:50 07/07/25 20:26 07/07/25 22:29 Temperature 98.5 F 97.2 F Pulse Rate 100 81 63 Respiratory Rate 18 18 18 Blood Pressure 128/75 116/80 111/68 Pulse Oximetry 92 93 92 Oxygen Delivery Method Room Air Room Air Room Air BMI result Body Mass Index 31.5 Const Other: Alert well-appearing Orientation/consciousness: patient oriented x3 Resp Effort & Inspection: normal respiratory effort Cardio Other: Normal peripheral perfusion GI Other: Abdomen is soft, nondistended, mild tenderness left lower abdomen without guarding, stool brown no active bleeding on my rectal exam Skin Other: Warm dry no rash Neuro General: patient oriented x3, gait normal, no focal motor deficits and CN's II-XI intact bilaterally Psych Other: Cooperative Course Course Course Narrative: This is a Rapid Medical Examination (RME) performed by Kris Thrasher PA-C in triage. Full HPI, ROS, assessment and treatment plan per primary provider in the Main ED. Hx: 60 yo M here for eval of hematochezia since yesterday. hx diverticulosis. reports 12 episodes of bloody loose stools w/ clots today. assoc lower abd pain. not on AC. Plan: labs obs Reevaluation(s) Reevaluation #1: Discussed findings with the patient, that he has diverticulosis without diverticulitis, that there is a minimal amount of associated focal inflammation. Given he is stable, with a minimal symptoms and overall normal labs, we will be sending with return precautions, he does not warrant antibiotics at this time. The patient is in agreement with the plan. Medications Administered Discontinued Medications Generic Name Dose Route Start Last Admin Trade Name Freq PRN Reason Stop Dose Admin Sodium Chloride 500 mls @ 500 mls/hr 07/07/25 21:38 07/07/25 22:57 Ns IV 07/07/25 22:37 Infused .Q1H ONE Infusion Iohexol 85 ml 07/07/25 22:30 07/07/25 22:31 Iohexol 350 Mg/Ml 100 Ml Infus..Btl IV 07/07/25 22:31 85 ml ONCE ONE Administration Medical Decision Making Medical Decision Making [facility] Narrative: 60-year-old male with a known diverticulosis with prior diverticulitis, known LVH, hyperlipidemia, COPD and GERD, who presents with bright red blood per rectum since yesterday. Patient states he had a large bloody bowel movement yesterday. Today, he has been having some lower abdominal discomfort, left greater than right. Denies nausea vomiting or fever. Patient has not had additional episodes today. He denies the presence of hemorrhoids. Problem: Diverticulosis, diverticulitis History: Per patient I have considered the following differential diagnoses: Diverticulosis, diverticulitis, internal versus external hemorrhoids, other colitis Plan: Given the patient's history, perhaps he is developing early diverticulitis given the presence of discomfort. We will obtain a CT scan. His labs were overall unremarkable. Obtaining a guaiac. I have independently reviewed the following tests: Labs: No leukocytosis, not anemic, no electrolyte abnormality, guaiac positive CT abdomen and pelvis:MPRESSION: 1. Diverticulosis with sigmoid colon wall thickening and no adjacent inflammatory changes or an abscess. 2. Hepatic steatosis. 3. Bilateral small renal cysts. 4. Small fat containing umbilical and left inguinal hernias. Differential Diagnosis Differential Diagnoses: The differential diagnosis associated with the presentation includes See [facility] Admission/Observation Consideration of admission/observation: Escalation of care including admission/observation considered Not applicable Lab Data [facility] Lab Attestation statement: I reviewed the patient's lab results. 07/07/25 17:34 07/07/25 17:34 Labs: Lab Results 07/07/25 07/07/25 Range/Units 17:34 21:25 WBC 11.0 H (4.8-10.8) X10*3/uL RBC 5.90 H (4.60-5.80) X10*6/uL Hgb 17.0 (14.0-18.0) g/dl Hct 48.7 (42.0-52.0) % MCV 82.5 (80.0-98.0) fL MCH 28.8 (27.0-33.0) pg MCHC 34.9 (31.0-36.0) g/dl RDW 13.2 (11.0-16.0) % Plt Count 207 (160-400) X10*3/uL MPV 8.8 L (9.4-12.4) fL Immature Gran % (Auto) 0.2 (0.0-0.4) % Neut % (Auto) 65.8 (45-73) % Lymph % (Auto) 25.2 (20-40) % [place] % (Auto) 6.7 (2-11) % Eos % (Auto) 1.6 (0-4) % Baso % (Auto) 0.5 (0-2) % Lymph # (Auto) 2.8 (1.2-4.9) X10*3/uL [place] # (Auto) 0.7 (0.1-1.2) X10*3/uL Eos # (Auto) 0.2 (0.0-0.4) X10*3/uL Baso # (Auto) 0.1 (0.0-0.2) X10*3/uL Abs Immat Gran (auto) 0.02 (0.00-0.03) X10*3/uL Absolute Neuts (auto) 7.2 (2.0-8.3) x10*3/uL Absolute Nucleated RBC 0.000 (0.0-0.012) X10*3/uL Nucleated RBC % (auto) 0.0 (0.0-0.2) /100WBC Sodium 141 (135-145) mmol/L Potassium 3.8 (3.3-5.1) mmol/L Chloride 103 (96-108) mmol/L Carbon Dioxide 29 (22-29) mmol/L Anion Gap 13 (12-20) BUN 24 H (9-16) mg/dL Creatinine 0.97 (0.5-1.4) mg/dL Estim Creat Clear Calc 95.8 Estimated GFR > 60 Random Glucose 115 (60-115) mg/dL Calcium 9.8 (8.4-10.2) mg/dL Magnesium 1.9 (1.6-2.6) mg/dL Total Bilirubin 0.4 (0.0-1.0) mg/dL AST 33 (5-37) U/L ALT 33 (0-40) U/L Alkaline Phosphatase 78 (39-117) U/L Total Protein 8.3 H (6.5-8.0) g/dL Albumin 4.7 (3.5-5.0) g/dL Lipase 14 (8-78) U/L Stool Occult Blood POSITIVE (NEGATIVE) Radiology Impression Discussion of test interpretation with radiology: I have reviewed the radiologist's reading. Discharge Plan Discharge Clinical Impression: Diverticulosis Patient Disposition: Home, Self-Care Instructions: Diverticulosis (ED) Additional Instructions: Your screening labs were stable, the CT scan revealed that you have diverticulosis without the presence of diverticulitis. There was a portion of your colon that shows mild inflammation. This is nonspecific. Continue to follow up with primary care as needed. If the bleeding continues, if you develop severe focal lower abdominal discomfort, fever or nausea vomiting, seek medical attention. Prescriptions: No Action atorvastatin 10 mg tablet 10 mg PO DAILY omeprazole 40 mg capsule,delayed release(DR/EC) 20 mg PO ONCE prednisone 20 mg tablet 40 mg PO DAILY Qty: 10 0RF albuterol sulfate 90 mcg/actuation HFA aerosol inhaler 2 puff inhalation Q4-6H PRN (Reason: shortness of breath or wheezing) Qty: 8.5 0RF amoxicillin-pot clavulanate 875-125 mg tablet 1 tab PO BID Qty: 19 0RF azithromycin 250 mg tablet 250 mg PO DAILY 4 Days Qty: 4 0RF Rx Instructions: start on day 2 of therapy citalopram [Celexa] 20 mg Tablet 20 mg PO DAILY Fish Oil 1,200 mg PO DAILY melatonin 5 mg Tablet 5 mg PO BEDTIME Claritin-D 24 Hour 10-240 mg tablet extended release 24 hr 1 tab PO DAILY multivitamin Tablet 1 tab PO DAILY aripiprazole 2 mg tablet 2 mg PO DAILY Interventions: ED Discharge Assessment Last Done: 07/08/25 01:37 Discharge Date/Time: 07/08/25 01:37 Print Language: Thai
[2025-07-07 17:40] LABS: MANUAL DIFF FLAG NO
[2025-07-07 17:52] LABS: Hematocrit 48.7 % (42.0-52.0); Hemoglobin 17.0 g/dl (14.0-18.0); Imm Gran Abs Auto 0.02 X10*3/uL (0.00-0.03); Imm Gran Pct Auto 0.2 % (0.0-0.4); Lymphocytes Absolute Auto 2.8 X10*3/uL (1.2-4.9); Mean Corpuscular HGB Conc 34.9 g/dl (31.0-36.0); Mean Corpuscular Hemoglobin 28.8 pg (27.0-33.0); Mean Corpuscular Volume 82.5 fL (80.0-98.0); NRBC Abs Auto 0.000 X10*3/uL (0.0-0.012); NRBC Pct Auto 0.0 /100WBC (0.0-0.2); Platelet Count 207 X10*3/uL (160-400); Red Blood Count 5.90 X10*6/uL (4.60-5.80); White Blood Count 11.0 X10*3/uL (4.8-10.8)
[2025-07-07 18:02] LABS: Alanine Aminotransferase 33 U/L (0-40); Albumin Level 4.7 g/dL (3.5-5.0); Alkaline Phosphatase 78 U/L (39-117); Anion Gap 13 (12-20); Aspartate Amino Transferase 33 U/L (5-37); Blood Urea Nitrogen 24 mg/dL (9-16); Calcium 9.8 mg/dL (8.4-10.2); Carbon Dioxide 29 mmol/L (22-29); Chloride 103 mmol/L (96-108); Creatinine Clr Calc Pharmacy 95.8; Estimated Glomerular Filt Rate > 60; Lipase 14 U/L (8-78); Magnesium 1.9 mg/dL (1.6-2.6); Potassium 3.8 mmol/L (3.3-5.1); Sodium 141 mmol/L (135-145); Total Protein 8.3 g/dL (6.5-8.0)
--- OUTSIDE RECORDS SUMMARY | 2025-07-07 19:40 | XMS_ITS | Patient Health Record ---
Author Organization [facility] Address [address] [place] [address] Care Team Providers Care Mortgage Operations Manager Name Role Phone Macario Hay MD Primary Care Provider Dylan Serrato Jr Unavailable [phone] Allergies Allergen (clinical drug ingredient) Drug/Non Drug Allergy documented on EMR Reaction Allergy Type Onset Date Status Information temporarily unavailable Temazepam Unknown Drug Allergy Active Information temporarily unavailable Dyphylline-Guaifenesin Unknown Drug Allergy Activ e Reason For Referral No Information Medications Medication SIG (Take, Route, Frequency, Duration) Notes Start Date End Date Status Multivitamin Adults Active CeleXA 20 MG 1 tablet Orally Once a day Active Aspirin 81 Active Claritin Active Abilify 2 MG 2 tablet Orally Once a day Active Fish Oil Active Omeprazole 20 MG TAKE 1 CAPSULE BY [facility] DAILY; 30 MINUTES BEFORE MORNING MEAL [...] Problem Status W/U Status Risk Notes Problem 277263473 Colon cancer screening (Z12.11) Active confirmed Problem 808946342 Encounter for ot her preprocedural examination (Z01.818) Active confirmed Problem 44255919 Other dysphagia (R13.19) Active confirmed Problem Information temporarily unavailable Gastroesophageal reflux disease (K21.9) Active confirmed Problem 439516066 Abnormal CT scan , esophagus (R93.3) Active confirmed Problem 744331744 Pancreatic duct dilated (K86.89) Active confirmed Problem 032206284 Gastroesophageal reflux disease with esophagitis without hemorrhage (K21.00) Active confirmed Problem 06031475 Gastric intestin al metaplasia (K31.A0) Active confirmed Plan Of Treatment Pending Test Test Name Order Date Pathology 03/15/2023 Future Test Test Name Order Date COLONOSCOPY 09/26/2019 UPPER GI ENDOSCOPY 12/23/2021 UPPER GI ENDOSCOPY 01/31/2023 Insurance Providers Payer Name Payer Address Payer Phone Subscriber Number Group Number Insured Name Patient Relationship to Insured Coverage Start Date Coverage End Date [facility] [address] [place] [address] [id number] MARYCARMEN WARD Self - patient is the insured 2 Medical (General) History Medical History History ICD Code Palpitations microscopic hematuria depression Diverticulitis Colonoscopy 12/27, normal, diverticulosis , ten-year followup Surgical History Surgery Date(Month/Year) basil cell on lip
--- OUTSIDE RECORDS SUMMARY | 2025-07-07 19:44 | XMS_ITS | Patient Health Record ---
Author Organization Macairo Hay MD Address [address] [place], [place] [address] Care Team Providers Care Equipment Scheduler Name Role Phone Macario Hay Primary Care Provider [phone] Allergies Allergen (clinical drug ingredient) Drug/Non Drug Allergy documented on EMR Reaction Allergy Type Onset Date Status Information temporarily unavailable Temazepam sleep walking Drug Allergy Active Results Component Value Reference Range Notes Complete Blood Count Auto Di ff Reviewed date:10/15/2024 12:48:40 PM Interpretation: Performing Lab:[facility], [address] [place] [phone] Notes/Report: White Blood Count 8.2 4.8-10.8 X10*3/uL [...] 0.0-0.2 /100WBC Neutrophils Absolute Auto 4.3 2.0-8.3 x10*3/uL Imm Gran Abs Auto 0.04 0.00-0.03 X10*3/uL Lymphocytes Absolute Auto 2.9 1.2-4.9 X10*3/uL Monocytes Absolute Auto 0.7 0.1-1.2 X10*3/uL Eosinophils Absolute Auto 0.3 0.0-0.4 X10*3/uL Basophils Absolute Auto 0.1 0.0-0.2 X10*3/uL NRBC Abs Auto 0.000 0.0-0.012 X10*3/uL Comprehensive Knapp. Panel Fa st Reviewed date:10/16/2024 12:53:27 PM Interpretation: Performing Lab:[address] [phone] Notes/Report: Sodium 138 135-145 mmol/L Potassium 4.0 [...] Reviewed date:10/15/2024 12:48:48 PM Interpretation: Performing Lab:[address] [phone] Notes/Report: Triglycerides 135 <150 mg/dL Desirable Triglyceride: [...] (Free>4and<10) Reviewed date:10/15/2024 12:48:23 PM Interpretation: Performing Lab:[facility], [address] [place] [phone] Notes/Report: PSA,Total (Free>4and<10) 0.22 0.00-4.00 ng/mL A [...] Prado Alinity i Chemiluminescent Microparticle Immunoassay (CMIA) UA ClnCatch+Micro w/rflx Cul t Reviewed date:10/22/2024 08:56:40 AM Interpretation:see back 10-22-2024 Performing Lab:[facility], [address] [place] [phone] Notes/Report: Urine, Clean Catch Color Urine Yellow Appearance Urine Clear PH 5.5 5.0-9.0 Glucose Urine UA Negative Negative mg/dL Urine Blood Small (1+) Negative Specific [place] - Urine 1.025 1.005-1.025 Urine Protein Negative Neg-Trace mg/dL Urine Ketones Negative Negative mg/dL Nitrite Urine Negative Negative Leukocyte Esterase Urine Negative Negative RBC Urine 11-20 0-2 /HPF WBC Urine 0-5 0-5 /HPF Squamous Epithelial Cell Urine 0-2 0-2 /HPF Bacteria Urine None Seen None Seen Hyaline Casts Urine 0-2 0-2 /LPF SARS-CoV2/FLU/RSV Reviewed date:11/22/2024 05:26:29 PM Interpretation: Performing Lab:[facility], [address] [place] [phone] Notes/Report: Influenza A PCR NEGATIVE Negative Influenza B PCR NEGATIVE Negative Resp Syncy Virus RNA Qual PCR NEGATIVE Negative SARS COV2 PCR INHOUSE NEGATIVE Negative All test results must be correlated with clinical findings. Negative results do not preclude SARS-CoV2, influenza A virus, influenza B virus and/or RSV infection and should not be used as the sole basis for treatment or other patient management decisions. Negative results must be combined with clinical observations, patient history, and epidemiological information. This test has not been evaluated for monitoring treatment of infection. This test has been authorized by the FDA under an Emergency Use Authorization (EUA) for use by authorized laboratories. Testing performed on the [employer] in [employer] (PRIMP) GeneXpert utilizing real-time RT-PCR. All SARS CoV2 and positive influenza A/B results are reported to [facility] [place]. XR chest 2V Reviewed date:11/23/2024 11:53:45 AM Interpretation: Performing Lab: Notes/Report: [address] [address] XRay Report Signed Patient: Braulio Reardon MR#: [id number] 167 : 1965 Acct:[id number] Age/Sex: 59 / M ADM Date: 11/21/24 Loc: .ED Attending Dr: Ordering Physician: Generic ED Physician Date of Service: 11/21/24 Procedure(s): XR chest 2V Accession Number(s): [id number] cc: Macario Hay MD; Generic ED Physician CLINICAL HISTORY: cough sob 2 view chest x-ray Comparison: CR - CHEST 2 VIEWS 63683 - 07/28/13 00:00 EDT Findings: Patchy mixed interstitial and airspace opacity in both lungs. No consolidation. No pleural effusion or pneumothorax. Heart size normal. IMPRESSION: 1. Patchy mixed interstitial and airspace opacity in both lungs, new from prior study. Findings suggest atypical bilateral infectious process such as viral pneumonitis. This document has been electronically signed by: Jun Ramon MD on 11/21/2024 22:03:19 Dictated By: Jun Ramon MD Signed By: <Electronically signed by Jun Ramon MD in OV> 11/21/242204 DD/ 02 TD/TT: 11/21/242202 Laborer/Key Man: [address] [address] XRay Report Signed Patient: Blayne Reardon nd MR#: [id number] 167 : 1965 Acct:[id number] Age/Sex: 59 / M ADM Date: 11/21/24 Loc: HO.ED Attending Dr: Ordering Physician: Generic ED Physician Date of Service: 11/21/24 Procedure(s): XR chest 2V Accession Number(s): [id number] cc: Macario Hay MD; Generic ED Physician CLINICAL HISTORY: co ugh sob 2 view chest x-ray Comparison: CR - [address] 2 VIEWS [id number] - 07/28/13 00:00 EDT Findings: Patchy mixed interst itial and airspace opacity in both lungs. No consolidation. No pl eural effusion or pneumothorax. Heart size normal. IMPRESSION: 1. Patchy mixed interstitial and airspace opacity in both lungs, new from prior study. Finding s suggest atypical bilateral infectious process such as viral pneumonitis. This document has be en electronically signed by: Jun Ramon MD on 11/21/2024 22:03:19 Dictated By: Jun Ramon MD Signed By: <Electronically signed by Jun Ramon MD in OV> 11/21/242204 DD/ 02 TD/TT: 11/21/242202 Laborer/Key Man: XR chest 2V Reviewed date:01/01/2025 09:57:06 AM Interpretation: Performing Lab: Notes/Report: [address] [address] XRay Report Signed Patient: Braulio Reardon MR#: [id number] 167 : 1965 Acct:[id number] Age/Sex: 59 / M ADM Date: 12/31/24 Loc: HO.XRAY Attending Dr: Macario Hay MD Ordering Physician: Macario Hay MD Date of Service: 12/31/24 Procedure(s): XR chest 2V Accession Number(s): [id number] cc: Macario Hay MD EXAMINATION: XR CHEST CLINICAL INFORMATION: SHORTNESS OF BREATH COMPARISON: November 21, 2024. TECHNIQUE: 2 views of the chest were obtained. FINDINGS: Pulmonary reticular nodular pattern. Prominence of the interstitial markings in the perihilar regions. No pleural effusion. No pneumothorax. Cardiomediastinal silhouette size is normal. Multilevel thoracic spondylosis. Bilateral apical lung scarring. XR/XR chest 2V IMPRESSION: Acute on chronic airspace disease. Mild interstitial lung edema cannot be entirely excluded. Electronically signed by: Gokul Couch MD 12/31/2024 09:49 AM EST Dictated By: Gokul Kline MD Signed By: <Electronically signed by Gokul Rodgers MD in OV> 12/31/24 0949 DD/ 0928 TD/TT: 12/31/24 0941 Laborer/Key Man: [place] [address] XRay Report Signed Patient: Blayne Reardon nd MR#: [id number] 167 : 1965 Acct:[id number] Age/Sex: 59 / M ADM Date: 12/31/24 Loc: JOEL Attending Dr: Macario Hay MD Ordering Physician: Macario Hay MD Date of Service: 12/31/24 Procedure(s): XR chest 2V Accession Number(s): [id number] cc: Macario Hay MD EXAMINATION: XR CHEST CLINICAL INFORMATION: SHORTNESS OF BREATH COMPARISON: November 21, 2024. TECHNIQUE: 2 views of the chest were obtained. FINDINGS: Pulmonary reticular nodular pattern. Prominence of the interstitial markings in the chad hilar regions. No pleural effusion. No pneumothorax. Cardiomediastinal silhouette size is normal. Multilevel thoracic spondylosis. Bilateral apical keith g scarring. X R/XR chest 2V IMPRESSION: Acute on chronic air space disease. Mild interstitial lung edema cannot be entirely excluded. Electronically aviva d by: Gokul Couch MD 12/31/2024 09:49 AM EST RP Dictated By: Gokul Lopez MD Signed By: <Electronically signed by Gokul Rodgers MD in OV> 12/31/24 0949 DD/ 0928 TD/TT: 12/31/24 0941 Laborer/Key Man: XR chest 2V Reviewed date:01/31/2025 09:14:31 AM Interpretation:CBACK 01/31 Performing Lab: Notes/Report: [address] [address] XRay Report Signed Patient: Braulio Reardon MR#: [id number] 167 : 1965 Acct:[id number] Age/Sex: 59 / M ADM Date: 01/17/25 Loc: [facility] Attending Dr: Macario Hay MD Ordering Physician: Macario Hay MD Date of Service: 01/17/25 Procedure(s): XR chest 2V Accession Number(s): [id number] cc: Macario Hay MD EXAMINATION: XR CHEST 2 VIEWS HISTORY: SOB, SCAR TISSUE COMPARISON: Comparison is made with the prior examination dated 12/31/2024. FINDINGS: PA and lateral views of the chest are submitted. Again seen is fine interstitial prominence without change. No new focal airspace opacity is seen. There is no pleural effusion, pneumothorax, or pulmonary vascular congestion. The heart is normal in size. There is degenerative disc disease of the spine. XR/XR chest 2V IMPRESSION: Prominent interstitial markings without change. No acute cardiopulmonary abnormality. Electronically signed by: Austyn Davila MD 01/17/2025 12:01 PM EDT RP Dictated By: Austyn Dvaila MD Signed By: <Electronically signed by Austyn Davila MD in OV> 01/17/25 1201 DD/ 1042 TD/TT: 01/17/25 1051 Laborer/Key Man: [address] [address] XRay Report Signed Patient: Blayne Reardon nd MR#: [id number] 167 : 1965 Acct:[id number] Age/Sex: 59 / M ADM Date: 01/17/25 Loc: HO.XRAY Attending Dr: Macario Hay MD Ordering Physician: Macario Hay MD Date of Service: 01/17/25 Procedure(s): XR chest 2V Accession Number(s): [id number] cc: Macario Hay MD EXAMINATION: XR CHES T 2 VIEWS HISTORY: SOB, SCAR TISSUE COMPARISON: Comparis on is made with the prior examination dated 12/31/2024. FINDINGS: PA and lat eral views of the chest are submitted. Again seen is fine interstitial prominence without change. No new focal airspace opacity is seen. The re is no pleural effusion, pneumothorax, or pulmonary vascular congestion. The heart is normal in size. There is degenerative disc di sease of the spine. X R/XR chest 2V IMPRESSION: Prominent interstiti al markings without change. No acute cardiopulmonary abnormality. Electronically aviva d by: Austyn Davila MD 01/17/2025 12:01 PM EDT Dictated By: Austyn Davila MD Signed By: <Electronically signed by Austyn Davila MD in OV> 01/17/25 1201 DD/ 1042 TD/TT: 01/17/25 1051 Laborer/Key Man: Complete Blood Count Auto Di ff (Not yet reviewed by provider) Interpretation: Performing Lab:[facility], [address] [place] [phone] Notes/Report: White Blood Count 11.0 4.8-10.8 X10*3/uL Red Blood Count 5.90 4.60-5.80 X10*6/uL Hemoglobin 17.0 14.0-18.0 g/dl Hematocrit 48.7 42.0-52.0 % Mean Corpuscular Volume 82.5 80.0-98.0 fL Mean Corpuscular Hemoglobin 28.8 27.0-33.0 pg Mean Corpuscular HGB Conc 34.9 31.0-36.0 g/dl Red Cell Distribution Width 13.2 11.0-16.0 % Platelet Count 207 160-400 X10*3/uL Mean Platelet Volume 8.8 9.4-12.4 fL Neutrophils Percent Auto 65.8 45-73 % Imm Gran Pct Auto 0.2 0.0-0.4 % Lymphocytes Percent Auto 25.2 20-40 % Monocytes Percent Auto 6.7 2-11 % Eosinophils Percent Auto 1.6 0-4 % Basophils Percent Auto 0.5 0-2 % NRBC Pct Auto 0.0 0.0-0.2 /100WBC Neutrophils Absolute Auto 7.2 2.0-8.3 x10*3/uL Imm Gran Abs Auto 0.02 0.00-0.03 X10*3/uL Lymphocytes Absolute Auto 2.8 1.2-4.9 X10*3/uL Monocytes Absolute Auto 0.7 0.1-1.2 X10*3/uL Eosinophils Absolute Auto 0.2 0.0-0.4 X10*3/uL Basophils Absolute Auto 0.1 0.0-0.2 X10*3/uL NRBC Abs Auto 0.000 0.0-0.012 X10*3/uL Comprehensive Met. Panel (No t yet reviewed by provider) Interpretation: Performing Lab:[facility], [address] [place] [phone] Notes/Report: Sodium 141 135-145 mmol/L Potassium 3.8 3.3-5.1 mmol/L Chloride 103 96-108 mmol/L Carbon Dioxide 29 22-29 mmol/L Anion Gap 13 12-20 Blood Urea Nitrogen 24 9-16 mg/dL Creatinine 0.97 0.5-1.4 mg/dL Creatinine Clr Calc Pharmacy 95.8 eGFR (calculated from the MDRD study equation) and eCrCl (calculated from the Cockcroft-Gault equation) are based on different parameters and may not yield comparable results. If eCrCl result is absurd, please check patient's height/weight. Estimated Glomerular Filt Rate > 60 Chronic Kidney Disease: Estimated GFR < 60 mL/min/1.73m2 Severe Kidney Disease: Estimated GFR < 15 mL/min/1.73m2 Glucose Random 115 60-115 mg/dL Calcium 9.8 8.4-10.2 mg/dL Bilirubin Total 0.4 0.0-1.0 mg/dL Aspartate Amino Transferase 33 5-37 U/L Alanine Aminotransferase 33 0-40 U/L Total Protein 8.3 6.5-8.0 g/dL Albumin Level 4.7 3.5-5.0 g/dL Alkaline Phosphatase 78 39-117 U/L Magnesium (Not yet reviewed by provider) Interpretation: Performing Lab:[facility], [address] [place] [phone] Notes/Report: Magnesium 1.9 1.6-2.6 mg/dL Lipase (Not yet reviewed by provider) Interpretation: Performing Lab:[address] [address] Notes/Report: Lipase 14 8-78 U/L Reason For Referral No Information Medications Medication SIG (Take, Route, Frequency, Duration) Notes Start Date End Date Status Ventolin HFA * 108 (90 Base) MCG/ACT 2 puffs as needed Inhalation every 4 hrs for 30 day(s) 01/19/2021 Not-Taking metroNIDAZOLE 250 MG 1 tablet Orally Twi ce a day Not-Taking ProAir HFA 108 (90 Base) MCG/ACT 2 puffs as needed Inhalation every 6 hrs for 24 Not-Taking Loratadine-D 24HR 10-240 MG 1 tablet as needed Orally Once a day for 30 day(s) Not-Taking Levaquin 500 MG 1 tablet Orally Once a day for 10 day(s) Not-Taking Atorvastatin Calcium 10 MG TAKE 1 TABLET BY MOUTH ONCE A DAY. for 90 days Active Abilify 2 MG 2 tablets Orally Onc e a day Active Nicotine Step 3 7 MG/24HR 1 patch to ski n Transdermal Once a day 04/27/2024 Not-Takin g Nicotine 21 MG/24HR APPLY 1 PATCH TOPICA LLY TO CLEAN DRY SKIN ONCE A DAY for 30 Not-Taking Fish Oil 1000 MG 1 capsule Orally Onc e a day for 30 day(s) Active Multi For Him - as directed Orally Active CeleXA 20 MG 1 tablet Orally Once a day 04/12/2019 Active Albuterol Sulfate HFA 108 (90 Base) MCG/ACT 1 puff as needed Inhalation every 4 hrs for 90 days 06/30/2023 Active Flonase Allergy Relief 50 MCG/ACT 1 spray in each nostril Nasally Once a day for 30 day(s) Active Doxycycline Monohydrate 100 MG 1 tablet Orally twice a day Active Melatonin 5 MG 1 tablet in [...] SARS-COV-2 Pfizer Unknown 07/26/2024 Administered [facility] Social History Tobacco Use: Social History Observation Description Date Details (start date - stop date) Current Smoker NA - NA Tobacco Use/Smoking Question Answer Notes Patient is a current smoker How often do you smoke cigarettes? every day How many cigarettes a day do you smoke? 11-20 How soon after you wake up d o you smoke your first cigarette? within 5 minutes Are you interested in quitting? Thinking about q uitting Additional Findings: Tobacco Non-User Fo rmer smoker, currently using no form of tobacco Alcohol Screen Question Answer Notes Did you have a drink containing alcohol in the p ast year? No Points 0 Interpretation Negative Problems Problem Type SNOMED Code ICD Code Onset Dates Problem Status W/U Status Risk Notes Problem Information temporarily unavailable Acute diverticulitis (K57.92) Active confirmed Problem 97467277 Lymphocytosis (D72.820) Active confirmed Problem 107866005 Diverticulitis (K57.92) Active confirmed Problem Information temporarily unavailable Smoker (F17.200) Active confirmed Problem 590512057 Low HDL (under 4 0) (E78.6) Active confirmed Problem 64781019 RBBB (I45.10) Active confirmed Problem 53533580 Dysthymia (F34.1) Active confirmed Problem Information temporarily unavailable Incidental lung nodule, > 3mm and < 8mm (R91.1) Active confirmed Problem Information temporarily unavailable Elevated WBC count (D72.829) Active confirmed Problem Information temporarily unavailable Interstitial fibrosis (J84.10) Active confirmed Problem Information temporarily unavailable Elevated cholesterol (E78.00) Active confirmed Problem Information temporarily unavailable CLIFF (obstructive sleep apnea) (G47.33) Active confirmed Problem Information temporarily unavailable Abnormal CAT scan (R93.89) Active confirmed Vital Signs Blood pressure diastolic 80 mm Hg 06/18/2025 sherwin ght is up 4 pounds since 01-31-25 Height 69 in 06/18/2025 weight is up 4 pounds since 01-31-25 Blood pressure systolic 120 mm Hg 06/18/2025 weig ht is up 4 pounds since 01-31-25 Weight 222 lbs 06/18/2025 weight is up 4 pounds since 01-31-25 BMI 32.78 kg/m2 06/18/2025 weight is up 4 pounds since 01-31-25 Encounters Encounter Location Date Provider Diagnosis Macario Hay MD [address] [place] [id number] 10/15/2024 Macario Hay Blood tests for routine general physical examination Z00.00 ; Lymphocytosis D72.820 and Elevated cholesterol E78.00 Macario Hay MD [address] [place] [address] Drive [address] [place] [id number] 10/22/2024 Macario Hay Smoker F17.200 ; Annual physical exam Z00.00 ; Dysthymia F34.1 ; Elevated cholesterol E78.00 ; Colon cancer screening Z12.11 and Depression screening Z13.31 Macario Hay MD [address] [place] [address] Drive [address] [place] [id number] 12/31/2024 Macario Hay Viral pneumonitis J12.9 and Weight loss R63.4 Macario Hay MD [address] [place] [id number] 01/31/2025 Macario Hay Interstitial fibrosi s J84.10 Macario Hay MD [address] [place] [id number] 06/18/2025 Macario Hay Abscess L02.91 Macario Hay MD [address] [place] [id number] 08/16/2024 Macario Hay MD [address] [place] [id number] 11/23/2024 Macario Hay SOB (shortness of breath) R06.02 Macario Hay MD [address] [place] [id number] 11/26/2024 Macario Hay MD [address] [place] [id number] 11/27/2024 Macario Hay MD [address] [place] [id number] 01/01/2025 Macario Hay Shortness of breath R06.02 and Scar tissue L90.5 Macario Hay MD [address] [place] [id number] 01/01/2025 Macario Hay Shortness of breath R06.02 and Scar tissue L90.5 Macario Hay MD [address] [id number] 04/15/2025 Macario Hay MD [address] [place] [address] [id number] 06/25/2025 Macario Hay Elevated cholesterol E78.00 Assessments Encounter Date Diagnosis (ICD Code) Assessment Notes Treatment Notes Treatment Clinical Notes Section Notes 10/15/2024 Blood tests for routine general physical examination (ICD-10 - Z00.00) 10/15/2024 Lymphocytosis (ICD-10 - D72.820) 10/22/2024 Smoker (ICD-10 - F17.200) has been getting screening until this year, not willing to quit 10/22/2024 Annual physical exam (ICD-10 - Z00.00) labs reviewed and discussed with patient 12/31/2024 Viral pneumonitis (ICD-10 - J12.9) will repeat cxr today/ order already in system, order given to patient 12/31/2024 Weight loss (ICD-10 - R63.4) patient was concerned that he had a weight loss of 23 pounds but our scale shows it to be only one pound and he is relieved 01/31/2025 Interstitial fibrosis (ICD-10 - J84.10) discussed findings of recent CXR with patient and necesary follow up. 06/18/2025 Abscess (ICD-10 - L02.91) appears to be resolving. will observe 01/01/2025 Shortness of breath (ICD-10 - R06.02) 01/01/2025 Shortness of breath (ICD-10 - R06.02) 06/25/2025 Elevated cholesterol (ICD-10 - E78.00) 10/15/2024 Elevated cholesterol (ICD-10 - E78.00) 10/22/2024 Dysthymia (ICD-10 - F34.1) doing well on meds.will contiue current regiment 11/23/2024 SOB (shortness of breath) (ICD-10 - R06.02) Order mailed to the patient to be done in 3 weeks. Patient notified 01/01/2025 Scar tissue (ICD-10 - L90.5) 01/01/2025 Scar tissue (ICD-10 - L90.5) 10/22/2024 Elevated cholesterol (ICD-10 - E78.00) stable, will contiue to monitor and will continue curent regiment 10/22/2024 Colon cancer screening (ICD-10 - Z12.11) guaiac negative 10/22/2024 Depression screening (ICD-10 - Z13.31) negative screen 01/31/2025 Other ORDER PRINTED FOR FUTURE FOLDER Plan Of Treatment Pending Test Test Name Order Date CT CHEST NO CONTRAST 01/01/2025 Complete Blood Count Auto Diff Comprehensive Met. Panel 07/07/2025 Magnesium 07/07/2025 Lipase 07/07/2025 MR abdomen wo/w con 12/21/2021 MR abdomen wo/w con 12/07/2021 MR MRCP 12/04/2021 XR chest 2V 01/01/2025 XR chest 2V 11/23/2024 Next Appt Details Provider Name:Macario Holt ier, 09/03/2025 07:45:00 AM, [address] [facility], [address], [place], [place], [phone], Provider Name:Macario Holt ier, 09/10/2025 10:30:00 AM, [address] [place] [address], [address], [place], [place], [phone], Insurance Providers Payer Name Payer Address Payer Phone Subscriber Number Group Number Insured Name Patient Relationship to Insured Coverage Start Date Coverage End Date [facility] [address] [address] [place] [address] [id number] Braulio Reardon Self - patient is the insured Medical (General) History Medical History History ICD Code 12/26/[address] Castro - repeat 10 years 2019 had hematuriia evaluatuon with dr miracle bliss with cysto and ct
[2025-07-07 20:26] VITALS: BP 116/80; PULSE 81; RESP 18; O2SAT 93
[2025-07-07 21:35] LABS: OBS Int Ctl Valid YES; OBS1 POSITIVE (NEGATIVE)
[2025-07-07 22:29] VITALS: BP 111/68; PULSE 63; RESP 18; TEMP 36.2; O2SAT 92
[2025-07-07] MEDS: iohexoL 350 MG/ML 100 ML INFUS..BTL 85 ML IV (22:31)
[2025-07-08 00:51] VITALS: BP 119/74; PULSE 71; RESP 20; TEMP 36.6; O2SAT 93
[2025-07-08 01:37] VITALS: BP 119/74; PULSE 71; RESP 20; TEMP 36.6; O2SAT 93
== END 2025-07-08 01:37 | disposition home or self-care (01) ==
PROVIDERS: Physician Assistant Medical; Emergency Provider Emergency Medicine; PCP Internal Medicine
DX: K57.90 Diverticulosis of intestine, part unspecified, without perforation or abscess without bleeding (principal); J44.9 Chronic obstructive pulmonary disease, unspecified; K21.9 Gastro-esophageal reflux disease without esophagitis; Z87.19 Personal history of other diseases of the digestive system; Z79.899 Other long term (current) drug therapy; Z87.891 Personal history of nicotine dependence
CPT/HCPCS: 36415; 74177; 80053; 82272; 83690; 83735; 85025; 96360; 99283; 99285; Q9967

== ENCOUNTER → 2025-07-07 21:18 | Outpatient (BNV) | payer OTHER, SELFPAY | PROVIDERS: Emergency Provider Emergency Medicine; PCP Internal Medicine; Visit Provider Specialist | DX: K57.90 Diverticulosis of intestine, part unspecified, without perforation or abscess without bleeding (principal); K76.0 Fatty (change of) liver, not elsewhere classified; N28.1 Cyst of kidney, acquired; K40.90 Unilateral inguinal hernia, without obstruction or gangrene, not specified as recurrent | CPT/HCPCS: 74177 ==

== ENCOUNTER 2025-07-23 07:36 | Outpatient (REF) | payer OTHER, SELFPAY ==
--- OUTSIDE RECORDS SUMMARY | 2025-04-15 05:51 | XMS_ITS ---
Author Organization Macario Hay MD Address [address] [place] [phone] Care Team Providers Care Straight Slicing Machine Operator Name Role Phone Macario Hay Primary Care Provider [phone] REASON FOR VISIT Moved to [place] Encounters Encounter Location Date Provider Diagnosis Macario Hay MD [address] [place] [address] [place] [phone] 04/15/2025 Macario Hay Plan Of Treatment Next Appt Details Provider Name:Macario Holt ier, 09/03/2025 07:45:00 AM, [address] [place] [address], Suite [facility], [place], [place], [phone], Provider Name:Macario Holt ier, 09/10/2025 10:30:00 AM, [address] [place] [address], Suite [facility], [place], [place], [phone], Progress Notes * Braulio REARDON ADOB:[birth year] (59 yo M)Acc No.[id number]:04/15/2025 Patient: Halima VJ Braulio Simmons :1965 A ge:59 Y S ex:Male Address:[address] [place] [phone] * true * Date: Generated for Melii evelia/Facarlosg/eTransmitting on: 0 07/23/2025 07:40 AM EDT
--- OUTSIDE RECORDS SUMMARY | 2025-04-19 03:30 | XMS_ITS ---
Author Organization Macario Hay MD Address [address] [facility] [address] [place] [phone] Care Team Providers Care Supervisor Dehydrogenation Name Role Phone Macario Hay Primary Care Provider REASON FOR VISIT fasting lipids Encounters Encounter Location Date Provider Diagnosis Macario Hay MD [address] [place] [phone] 04/19/2025 Macario Hay Elevated cholesterol E78.00 Assessments Encounter Date Diagnosis (ICD Code) Assessment Notes Treatment Notes Treatment Clinical Notes Section Notes 04/19/2025 Elevated cholesterol (ICD-10 - E78.00) Plan Of Treatment Pending Test Test Name Order Date Liver Panel 04/19/2025 Lipid Panel with Reflex 04/19/2025 Next Appt Details Provider Name:Macario rodriguez, 09/03/2025 07:45:00 AM, [address] [place] [address], [address], [phone], Provider Name:Macario Holt ieabril, 09/10/2025 10:30:00 AM, [address] [place] [address], [address], [phone], Progress Notes * Braulio REARDON ADOB:[birth year] (60 yo M)Acc No.[id number]:04/19/2025 Progress Note Patient: Braulio BECERRA Provider: Ramón Hay MD :1965 A ge:59 Y S ex:Male Date:04/19/2025 Address:[address] [place] [phone] Subjective: * Chief Complaints: * 1 . Fasting lipids. * Medical History: Objective: * Vitals: Assessment: * Assessment: 1. E levated cholesterol - E78.00 (Primary) Plan: * Treatment: * * The named appointment provid er may or may not be the originator of this progress note, and it is not deemed complete until electronically signed by the appointment provider. Sign off status: Pending * Provider: Ramón Hay MD Date: 0 04/19/2025 Generated for Boyd altamirano/Omar/Nadiritting on: 0 07/23/2025 07:41 AM EDT
--- OUTSIDE RECORDS SUMMARY | 2025-06-18 11:00 | XMS_ITS ---
Author Organization Macario Hay MD Address [address] [place], [place] [id number] Care Team Providers Care School Lunch Monitor Name Role Phone Macario Hay Primary Care Provider Allergies Allergen (clinical drug ingredient) Drug/Non Drug Allergy documented on EMR Reaction Allergy Type Onset Date Status temazepam Temazepam sleep walking Drug Allergy Act nayeli REASON FOR VISIT LUMP IN GROIN left side x 2 week, Went to Urgent Care on [address] last week when Dr Hay was [...] Date Provider Diagnosis Macario Hay MD [address] [place] [phone] 06/18/2025 Macario Hay Abscess L02.91 Assessments Encounter Date Diagnosis (ICD Code) Assessment Notes Treatment Notes Treatment Clinical Notes Section Notes 06/18/2025 Abscess (ICD-10 - L02.91) appears to be resolving. will observe Plan Of Treatment Treatment Notes Assessment Notes Abscess appears to be resolv ing. will observe Next Appt Details Follow Up: 3 Months, Reason: complete Provider Name:Macario rodriguez, 09/03/2025 07:45:00 AM, [address] [place] [address], [address], [phone], Provider Name:Macario rodriguez, 09/10/2025 10:30:00 AM, [address] [place] [address], [address], [phone], Progress Notes * Braulio REARDON ADOB:[birth year] (60 yo M)Acc No.[id number]:06/18/2025 Progress Notes Patient: Halima ZABALA Braulio Simmons Provider: Ramón Hay MD :1965 A ge:59 Y S ex:Male Date:06/18/2025 Address:[address] [place] [address], [facility] [place], [id number] Subjective: * Chief Complaints: * L UMP IN GROIN left side x 2 weekW[address] to Urgent Care on [address] last week when Dr Hay was [...] 06/18/2025 Generated for Boyd altamirano/Omar/Nadiritting on: 0 07/23/2025 07:41 AM EDT History and Physical Notes * HPI [...]
--- OUTSIDE RECORDS SUMMARY | 2025-06-25 04:37 | XMS_ITS ---
Author Organization Macario Hay MD Address [address] [place] [phone] Care Team Providers Care Corrective And Manual Arts Therapist Name Role Phone Macario Hay Primary Care Provider REASON FOR VISIT refill Medications Medication SIG (Take, Route, Frequency, Duration) Notes Start Date End Date Status Atorvastatin Calcium 10 MG TAKE 1 TABLET BY MOUTH ONCE A DAY. for 90 days Active Encounters Encounter Location Date Provider Diagnosis Macario Hay MD [address] [place] [phone] 06/25/2025 Macario Hay Elevated cholesterol E78.00 Assessments Encounter Date Diagnosis (ICD Code) Assessment Notes Treatment Notes Treatment Clinical Notes Section Notes 06/25/2025 Elevated cholesterol (ICD-10 - E78.00) Plan Of Treatment Medication Medication Name Sig Start Date Stop Date Notes Atorvastatin Calcium 10 MG TAKE 1 TABLET BY MOUTH ONCE A DAY. for 90 days Next Appt Details Provider Name:Macario rodriguez, 09/03/2025 07:45:00 AM, [address] [place] [address], [address], [phone], Provider Name:Macario rodriguez, 09/10/2025 10:30:00 AM, [address] [place] [address], [address], [phone], Progress Notes * Braulio REARDON ADOB:[birth year] (60 yo M)Acc No.[id number]:06/25/2025 Patient: Halima Braulio ZABALA :1965 A ge:60 Y S ex:Male Address:[address] [place] [phone] * Refills Refill Atorvastatin Calcium Tablet, 10 MG, 90, TAKE 1 TABLET BY MOUTH ONCE A DAY., 90 days, Refills=3 * true * Date: Generated for Boyd altamirano/Omar/Tito on: 0 07/23/2025 07:40 AM EDT
--- OUTSIDE RECORDS SUMMARY | 2025-07-11 09:52 | XMS_ITS ---
Author Organization Macario Hay MD Address [address] [place] [phone] Care Team Providers Care Dictating Machine Mechanic Name Role Phone Macario Hay Primary Care Provider REASON FOR VISIT ER Encounters Encounter Location Date Provider Diagnosis Macario Hay MD [address] [facility] [address] [place] [phone] 07/11/2025 Macario Hay Plan Of Treatment Next Appt Details Provider Name:Macario Holt ier, 09/03/2025 07:45:00 AM, [address] [place] [address], [address] [place] [address], [phone], Provider Name:Macario Holt ier, 09/10/2025 10:30:00 AM, [address] [place] [address], [address] [place] [address], [phone], Progress Notes * Braulio REARDON ADOB:[birth year] (60 yo M)Acc No.[id number]:07/11/2025 Patient: Halima VJ Braulio Troy :1965 A ge:60 Y S ex:Male Address:[address] [place] [address] * true * Date: Generated for Printi ng/Faxing/eTransmitting on: 0 07/23/2025 07:40 AM EDT
--- NOTE | ~2025-07-23 | XR_ITS ---
EXAMINATION: XR CHEST 2 VIEWS HISTORY: INTERSTITIAL FIBROSIS COMPARISON: Comparison is made with the prior examination dated 01/17/2025. FINDINGS: PA and lateral views of the chest are submitted. Mild interstitial prominence is unchanged. There are no focal airspace opacities. There is no pleural effusion, pneumothorax, or pulmonary vascular congestion. The heart is normal in size. There is mild degenerative disc disease of the spine. XR/XR chest 2V IMPRESSION: Stable mild interstitial prominence. No acute cardiopulmonary abnormality. Electronically signed by: Austyn Davila MD 07/23/2025 07:53 AM EDT
--- OUTSIDE RECORDS SUMMARY | 2025-07-23 07:41 | XMS_ITS | Patient Health Record ---
Author Organization [facility] Address [address] [place] [address] Care Team Providers Care Senior Coldfusion Developer Name Role Phone Bharti HERNANDEZ, Macario Primary Care Provider Dylan Serrato Jr Unavailable Allergies Allergen (clinical drug ingredient) Drug/Non Drug [...] Omeprazole 20 MG TAKE 1 CAPSULE BY [facility] DAILY; 30 MINUTES BEFORE MORNING MEAL for [...] Problem Status W/U Status Risk Notes Problem 926519174 Colon cancer screening (Z12.11) Active confirmed Problem 083312924 Encounter for other preprocedural examination (Z01.818) Active confirmed Problem 70812068 Other dysphagia (R13.19) Active confirmed Problem Gastroesophageal reflux disease (097326378) Gastroesophageal reflux disease (K21.9) Active confirmed Problem 075777288 Abnormal CT scan , esophagus (R93.3) Active confirmed Problem 901188253 Pancreatic duct dilated (K86.89) Active confirmed Problem 521964365 Gastroesophageal reflux disease with esophagitis without hemorrhage (K21.00) Active confirmed Problem 33916335 Gastric intestin al metaplasia (K31.A0) Active confirmed Plan Of Treatment Pending Test Test Name Order Date Pathology 03/15/2023 Future Test Test Name Order Date COLONOSCOPY 09/26/2019 UPPER GI ENDOSCOPY 12/23/2021 UPPER GI ENDOSCOPY 01/31/2023 Insurance Providers Payer Name Payer Address Payer Phone Subscriber Number Group Number Insured Name Patient Relationship to Insured Coverage Start Date Coverage End Date [facility] [address] [place] [address] [id number] MARYCARMEN WARD Self - patient is the insured 2 Medical (General) History Medical History History ICD Code Palpitations microscopic hematuria depression Diverticulitis Colonoscopy 12/27, normal, diverticulosis , ten-year followup Surgical History Surgery Date(Month/Year) basil cell on lip
--- OUTSIDE RECORDS SUMMARY | 2025-07-23 07:41 | XMS_ITS | Patient Health Record ---
Author Organization Macario Hay MD Address [address] [place], [place] [address] Care Team Providers Care Water Fitness Instructor Name Role Phone Macario Hay Primary Care Provider [phone] Allergies Allergen (clinical drug ingredient) Drug/Non Drug Allergy documented on EMR Reaction Allergy Type Onset Date Status temazepam Temazepam sleep walking Drug Allergy Act nayeli Results Component Value Reference Range Notes Complete Blood Count Auto Di ff Reviewed date:10/15/2024 12:48:40 PM Interpretation: Performing Lab:[facility], [address] [place] [phone] Notes/Report: White Blood Count 8.2 4.8-10.8 X10*3/uL [...] NRBC Abs Auto 0.000 0.0-0.012 X10*3/uL Comprehensive [place]. Panel Fa st Reviewed date:10/16/2024 12:53:27 PM Interpretation: Performing Lab:[address] [phone] Notes/Report: Sodium 138 135-145 mmol/L Potassium 4.0 [...] Reviewed date:10/15/2024 12:48:48 PM Interpretation: Performing Lab:[address] [address] Notes/Report: Triglycerides 135 <150 mg/dL Desirable Triglyceride: [...] (Free>4and<10) Reviewed date:10/15/2024 12:48:23 PM Interpretation: Performing Lab:[facility], [address] [place] [phone] Notes/Report: PSA,Total (Free>4and<10) 0.22 0.00-4.00 ng/mL A [...] date:10/22/2024 08:56:40 AM Interpretation:see back 10-22-2024 Performing Lab:[facility], [address] [place] [phone] Notes/Report: Urine, Clean Catch Color Urine Yellow Appearance Urine Clear PH 5.5 5.0-9.0 Glucose Urine UA Negative Negative mg/dL Urine Blood Small (1+) Negative Specific [place] - Urine 1.025 1.005-1.025 Urine Protein Negative Neg-Trace mg/dL Urine Ketones Negative Negative mg/dL Nitrite Urine Negative Negative Leukocyte Esterase Urine Negative Negative RBC Urine 11-20 0-2 /HPF WBC Urine 0-5 0-5 /HPF Squamous Epithelial Cell Urine 0-2 0-2 /HPF Bacteria Urine None Seen None Seen Hyaline Casts Urine 0-2 0-2 /LPF SARS-CoV2/FLU/RSV Reviewed date:11/22/2024 05:26:29 PM Interpretation: Performing Lab:[facility], [address] [place] [phone] Notes/Report: Influenza A PCR NEGATIVE Negative Influenza [...] by authorized laboratories. Testing performed on the [employer] GeneXpert utilizing real-time RT-PCR. All SARS CoV2 and positive influenza A/B results are reported to [facility]. XR chest 2V Reviewed date:11/23/2024 11:53:45 AM Interpretation: Performing Lab: Notes/Report: [address] [address] XRay Report Signed Patient: Braulio Reardon MR#: [id number] 167 : 1965 Acct:[id number] Age/Sex: 59 / M ADM Date: 11/21/24 Loc: .ED Attending Dr: Ordering Physician: Generic ED Physician Date of Service: 11/21/24 Procedure(s): XR chest 2V Accession Number(s): [id number] cc: Macario Hay MD; Generic ED Physician CLINICAL HISTORY: cough sob 2 view chest x-ray Comparison: CR - CHEST 2 VIEWS [id number] - 07/28/13 00:00 EDT Findings: Patchy mixed [...] in OV> 11/21/242204 DD/ 02 TD/TT: 11/21/242202 Hand Edger: [address] [address] XRay Report Signed Patient: Blayne Reardon nd MR#: [id number] 167 : 1965 Acct:[id number] Age/Sex: 59 / M ADM Date: 11/21/24 Loc: .ED Attending Dr: Ordering Physician: Generic ED Physician Date of Service: 11/21/24 Procedure(s): XR chest 2V Accession Number(s): [id number] cc: Macario Hay MD; Generic ED Physician CLINICAL HISTORY: co ugh sob 2 view chest x-ray Comparison: CR - [address] 2 VIEWS [id number] - 07/28/13 00:00 EDT Findings: Patchy mixed [...] in OV> 11/21/242204 DD/ 02 TD/TT: 11/21/242202 Hand Edger: XR chest 2V Reviewed date:01/01/2025 09:57:06 AM Interpretation: Performing Lab: Notes/Report: [address] [address] XRay Report Signed Patient: Braulio Reardon MR#: [id number] 167 : 1965 Acct:[id number] Age/Sex: 59 / M ADM Date: 12/31/24 Loc: HO.XRAY Attending Dr: Macario Hay MD Ordering Physician: Macario Hay MD Date of Service: 12/31/24 Procedure(s): XR chest 2V Accession Number(s): [id number] cc: Macario Hay MD EXAMINATION: XR CHEST [...] 12/31/24 0949 DD/ 0928 TD/TT: 12/31/24 0941 Hand Edger: [place] [address] XRay Report Signed Patient: Blayne Reardon nd MR#: [id number] 167 : 1965 Acct:[id number] Age/Sex: 59 / M ADM Date: 12/31/24 Loc: JOEL Attending Dr: Macario Hay MD Ordering Physician: Macario Hay MD Date of Service: 12/31/24 Procedure(s): XR chest 2V Accession Number(s): [id number] cc: Macario Hay MD EXAMINATION: XR CHEST [...] 12/31/24 0949 DD/ 0928 TD/TT: 12/31/24 0941 Hand Edger: XR chest 2V Reviewed date:01/31/2025 09:14:31 AM Interpretation:CBACK 01/31 Performing Lab: Notes/Report: [place] [address] XRay Report Signed Patient: Braulio Reardon MR#: [id number] 167 : 1965 Acct:[id number] Age/Sex: 59 / M ADM Date: 01/17/25 Loc: JOEL Attending Dr: Macario Hay MD Ordering Physician: Macario Hay MD Date of Service: 01/17/25 Procedure(s): XR chest 2V Accession Number(s): [id number] cc: Macario Hay MD EXAMINATION: XR CHEST [...] 12:01 PM EDT RP Dictated By: Austyn Davila MD Signed By: <Electronically signed by Austyn Davila MD in OV> 01/17/25 1201 DD/ 1042 TD/TT: 01/17/25 1051 Hand Edger: [address] [address] XRay Report Signed Patient: Blayne Reardon nd MR#: [id number] 167 : 1965 Acct:[id number] Age/Sex: 59 / M ADM Date: 01/17/25 Loc: HO.XRAY Attending Dr: Macario Hay MD Ordering Physician: Macario Hay MD Date of Service: 01/17/25 Procedure(s): XR chest 2V Accession Number(s): [id number] cc: Macario Hay MD EXAMINATION: XR CHES [...] 01/17/25 1201 DD/ 1042 TD/TT: 01/17/25 1051 Hand Edger: Complete Blood Count Auto Di ff Reviewed date:07/08/2025 04:25:25 PM Interpretation: Performing Lab:[facility], [address] [place] [phone] Notes/Report: White Blood Count 11.0 4.8-10.8 X10*3/uL [...] X10*3/uL NRBC Abs Auto 0.000 0.0-0.012 X10*3/uL OBSX1 Reviewed date:07/08/2025 04:22:50 PM Interpretation: Performing Lab:[facility], [address] [place] [phone] Notes/Report: OBS1 POSITIVE NEGATIVE Comprehensive Met. Panel Reviewed date:07/08/2025 04:25:02 PM Interpretation: Performing Lab:[facility], [address] [place] [phone] Notes/Report: Sodium 141 135-145 mmol/L Potassium 3.8 [...] g/dL Alkaline Phosphatase 78 39-117 U/L Magnesium Reviewed date:07/08/2025 04:23:51 PM Interpretation: Performing Lab:[facility], [address] [place] [phone] Notes/Report: Magnesium 1.9 1.6-2.6 mg/dL Lipase Reviewed date:07/08/2025 04:24:00 PM Interpretation: Performing Lab:[facility], [address] [place] [phone] Notes/Report: Lipase 14 8-78 U/L CT abdomen pelvis w con Reviewed date:07/08/2025 04:23:43 PM Interpretation: Performing Lab: Notes/Report: [address] [address] [address] Scan Report Signed Patient: Braulio Reardon MR#: [id number] 167 : 1965 Acct:[id number] Age/Sex: 60 / M ADM Date: 07/07/25 Loc: HO.ED Attending Dr: Ordering Physician: Ana Lora Date of Service: 07/07/25 Procedure(s): CT abdomen pelvis w IV con Accession Number(s): [id number] cc: Macario Hay MD; Ana Lora Report Number: [id number]: Total DLP = 696.00 mGy-cm CLINICAL HISTORY: pain LLQ, diverticulitis? CT abdomen and pelvis with contrast Comparison: CT/SR - CT ABDOMEN PELVIS UROGRAPHY WITHOUT THEN WITH IV CONTRAST - 05/25/24 08:56 EDT Findings: Mild bilateral basilar dependent atelectasis. No pleural effusion. Unremarkable gallbladder. No biliary ductal dilatation. Low-attenuation of the liver parenchyma suggestive of steatosis. The spleen and pancreas are unremarkable. Bilateral adrenal thickening. Enhancement of bilateral kidneys with no stones along the course of the ureters and no hydronephrosis or hydroureter. Bilateral small renal cysts the largest 1.5 cm. No bowel obstruction, pneumoperitoneum, or pneumatosis. Diverticulosis especially in the descending and sigmoid colon. There is sigmoid colon wall thickening with no adjacent inflammatory changes no abscess. No free fluid. Pelvic contents unremarkable. Normal appendix. Small fat containing umbilical and left inguinal hernias. Abdominal aorta normal in size. No acute fracture. IMPRESSION: 1. Diverticulosis with sigmoid colon wall thickening and no adjacent inflammatory changes or an abscess. 2. Hepatic steatosis. 3. Bilateral small renal cysts. 4. Small fat containing umbilical and left inguinal hernias. This document has been electronically signed by: Carol Rosa MD on 07/08/2025 00:06:41 Dictated By: Carol Rosa MD Signed By: <Electronically signed by Carol Rosa MD in OV> 07/08/256 DD/ TD/TT: 07/08/255 Hand Edger: [place] [address] CT Scan Report Signed Patient: Blayne Reardon nd MR#: [id number] 167 : 1965 Acct:[id number] Age/Sex: 60 / M ADM Date: 07/07/25 Loc: .ED Attending Dr: Ordering Physician: Ana Lora Date of Service: 07/07/25 Procedure(s): CT abd omen pelvis w IV con Accession Number(s): [id number] cc: Macario Hay MD; Ana Lora Report Number: [id number]: Total DLP = 696.00 mGy-cm CLINICAL HISTORY: pa in LLQ, diverticulitis? CT abdomen and pelvi s with contrast Comparison: CT/SR - CT ABDOMEN PELVIS UROGRAPHY WITHOUT THEN WITH IV CONTRAST - 05/25/24 0 8:56 EDT Findings: Mild bilateral basil ar dependent atelectasis. No pleural effusion. Unremarkable gallbla dder. No biliary ductal dilatation. Low-attenuation of t he liver parenchyma suggestive of steatosis. The spleen and pancr eas are unremarkable. Bilateral adrenal thickening. Enhancement of bilat eral kidneys with no stones along the course of the ureters and no hydronephrosis or hydroureter. Bilateral small wally l cysts the largest 1.5 cm. No bowel obstruction , pneumoperitoneum, or pneumatosis. Diverticulosis espec ially in the descending and sigmoid colon. There is sigmoid colon wall thickening with no adjacent inflammatory changes no abscess. No free fluid. Pelvi c contents unremarkable. Normal appendix. Small fat containing umbilical and left inguinal hernias. Abdominal aorta norm al in size. No acute fracture. IMPRESSION: 1. Diverticulosis wi th sigmoid colon wall thickening and no adjacent inflammatory changes or an abscess. 2. Hepatic steatosis. 3. Bilateral small r enal cysts. 4. Small fat contain ing umbilical and left inguinal hernias. This document has be en electronically signed by: Carol Rosa MD on 07/08/2025 00:06:41 Dictated By: Carol Rosa MD Signed By: <Electronically signed by Carol Rosa MD in OV> 07/08/256 DD/ TD/TT: 07/08/255 Hand Edger: Reason For Referral No Information Medications Medication [...] Problem Status W/U Status Risk Notes Problem Diverticulitis of colon (500752257) Acute diverticulitis (K57.92) Active confirmed Problem 12148328 Lymphocytosis (D72.820) Active confirmed Problem 749723265 Diverticulitis (K57.92) Active confirmed Problem Smoker (68846358) Smoker (F17.200) Active confi rmed Problem 179602372 Low HDL (under 40) (E78.6) Active confirmed Problem 37408791 RBBB (I45.10) Active confirmed Problem 07193738 Dysthymia (F34.1) Active confirmed Problem Solitary pulmonary nodule (600080132) Incidental lung nodule, > 3mm and < 8mm (R91.1) Active confirmed Problem Leukocytosis (266727719) Elevated WBC count (D72.829) Active confirmed Problem Interstitial fibrosi s (548988244) Interstitial fibrosis (J84.10) Active confirmed Problem Pure hypercholesterolemia (151036807) Elevated cholesterol (E78.00) Active confirmed Problem Obstructive sleep apnea syndrome (30436298) CLIFF (obstructive sleep apnea) (G47.33) Active confirmed Problem Computed tomography result abnormal (653804879) Abnormal CAT scan (R93.89) Active confirmed Vital [...] Macario Hay MD [address] [place] [id number] 10/15/2024 Macario Hay Blood tests for routine general physical examination Z00.00 ; Lymphocytosis D72.820 and Elevated cholesterol E78.00 Macario Hay MD [address] [place] [id number] 10/22/2024 Macario Hay Smoker F17.200 ; Annual physical exam Z00.00 ; Dysthymia F34.1 ; Elevated cholesterol E78.00 ; Colon cancer screening Z12.11 and Depression screening Z13.31 Macario Hay MD [address] [place] [address] [id number] 12/31/2024 Macario Hay Viral pneumonitis J12.9 and Weight loss R63.4 Macario Hay MD [address] [place] [address] [id number] 01/31/2025 Macario Hay Interstitial fibrosi s J84.10 Macario Hay MD [address] [place] [address] [id number] 06/18/2025 Macario Hay Abscess L02.91 Macario Hay MD [address] [place] [id number] 08/16/2024 Macario Hay MD [address] [place] [address] [id number] 11/23/2024 Macario Hay SOB (shortness of breath) R06.02 Macario Hay MD [address] [place] [address] [id number] 11/26/2024 Macario Hay MD [address] [place] [address] [id number] 11/27/2024 Macario Hay MD [address] [place] [address] [id number] 01/01/2025 Macario Hay Shortness of breath R06.02 and Scar tissue L90.5 Macario Hay MD [address] [place] [address] [id number] 01/01/2025 Macario Hay Shortness of breath R06.02 and Scar tissue L90.5 Macario Hay MD [address] [place] [address] [id number] 04/15/2025 Macario Hay MD [address] [place], [place] [id number] 06/25/2025 Macario Hay Elevated cholesterol E78.00 Macario Hay MD [address] [place] [address] Drive [address] [place] [id number] 07/11/2025 Macario Hay Assessments Encounter Date Diagnosis (ICD Code) Assessment [...] Order Date CT CHEST NO CONTRAST 01/01/2025 MR abdomen wo/w con 12/21/2021 MR abdomen wo/w con 12/07/2021 MR MRCP 12/04/2021 XR chest 2V 01/01/2025 XR chest 2V 11/23/2024 Next Appt Details Provider Name:Macario Holt ier, 09/03/2025 07:45:00 AM, [address] [place] [address], [address], [phone], Provider Name:Macario Holt ier, 09/10/2025 10:30:00 AM, [address] [place] [address], [address], [place], [place], [phone], Insurance Providers Payer Name Payer Address Payer Phone Subscriber Number Group Number Insured Name Patient Relationship to Insured Coverage Start Date Coverage End Date [facility] [address] [address] [place] [address] [phone] [id number] Braulio Reardon Self - patient is the insured Medical (General) History Medical History History ICD Code 12/26/[address] Castro - repeat 10 years 2019 had hematuriia evaluatuon with dr miracle bliss with cysto and ct
== END 2025-07-23 07:37 | disposition home or self-care (01) ==
LOC: HO.XRAY 07:36
PROVIDERS: Visit Provider Internal Medicine
DX: J84.10 Pulmonary fibrosis, unspecified (principal)
CPT/HCPCS: 71046

== ENCOUNTER → 2025-07-23 07:42 | Outpatient (BNV) | payer OTHER, SELFPAY | PROVIDERS: Visit Provider Radiology Diagnostic Radiology | DX: J84.10 Pulmonary fibrosis, unspecified (principal) | CPT/HCPCS: 71046 ==

== ENCOUNTER 2025-09-30 11:15 | Outpatient (REF) | payer OTHER, SELFPAY ==
--- OUTSIDE RECORDS SUMMARY | 2025-09-27 10:00 | XMS_ITS | Encounter Summary ---
Author Organization [facility] Address [address] [place] [address] Care Team Providers Care Adding Machine Operator Name Role Phone Unavailable Primary Care Provider Unavailabl e Reason for Visit * Reason Comments Extraction Ext # 15 Encounter Details Date Type Department Care Team (Late st Contact Info) Description 09/27/2025 10:00 AM EST Office Visit [facility] [address] [place] [address] Arvin Red DDS [address] [place] [address] Pain, dental (Primary Dx); Severe dental caries; Dental abscess Social History Tobacco Use Types Packs/Day Years Used Date Smoking Tobacco: Former Cigarettes Passive Smoke Exposure: Never Smokeless Tobacco: Former Alcohol Use Standard Drinks/Week Comments Defer 0 (1 standard drink = 0.6 oz pur e alcohol) Sex and Gender Information Value Date Recorded Sex Assigned at Male 09/16/2025 8:51 AM EST Legal Sex Male 8:50 AM EST Gender Identity Male 09/16/2025 8:51 AM EST Sexual Orientation Straight 09/16/2025 8: 57 AM EST documented as of this encounter Last Filed Vital Signs Vital Sign Reading Time Taken Comments Blood Pressure 120/82 09/27/2025 10:10 AM EST Pulse 69 09/27/2025 10:10 AM EST Temperature - - Respiratory Rate - - Oxygen Saturation - - Inhaled Oxygen Concentration - - Weight - - Height - - Body Mass Index - - documented in this encounter Progress Notes * Arvin Red DDS - 09/27/2025 10:00 AM EST Patient ID: Braulio Reardon is a 60 y.o. male. Time Out: Timeout Date: 09/27/25, Timeout Time: 1019 (EXT # 15) Location: [facility] Tooth: Maxilla and #15 Procedure: Extraction Verified the above with patient, management assistant, and provider. Confirmed via patient's chart, intraorally and by radiographs. Animal Tech: not applicable Chief Complaint Patient presents with Extraction Ext # 15 Medical Hx: Vitals: Blood pressure 120/82, pulse 69. Medical History[1] Medications: Encounter Medications[2] Consent Obtained: The risks, benefits, indications, potential complications, and alternatives were explained to the patient and informed consent was obtained with good understanding. Treatment Provided: Dental procedures in this visit D7140 - EXTRACTION, ERUPTED TOOTH OR EXPOSED ROOT (ELEVATION/FORCEPS REMOVAL) 15 (Completed) Service provider: Arvin Red DDS Billing provider: Arvin Red DDS Diagnosis: Dental abscess, pain severe caries, non-restorable tooth Topical: 20% Benzocaine Anesthesia: 2% Lidocaine (Xylocaine) w/ 1:100,000 epinephrine Number of Cartridges: 1 Injection Type: Buccal infiltration, Palatal infiltration, and Intrapapillary injection Confirmed profound anesthesia. Pharyngeal curtain and bite block placed. Removed tooth with elevators and forceps. Apices intact. Surgical Extraction: Yes, #15 Socket curetted & irrigated with sterile water. Compressed alveolar bone. Sutures: None Needed All adjacent teeth intact. Hemostasis achieved. Complications: None. Pt tolerated procedure well. Pt states having analgesics at home . Written and verbal post-op instructions given. Patient discharged in stable condition; ambulatory, alert, and oriented. NV: F/U as needed / EXAM Clinical Immunologist: Ashley Palacios Dentist: rAvin Red DDS [1] Past Medical History: Diagnosis Date COPD (chronic obstructive pulmonary disease) ([facility]) [2] Outpatient Encounter Medications as of 09/27/2025 Medication Sig Dispense Refill acetaminophen (Tylenol 8 Hour) 650 MG ER tablet Take 1 tablet (650 mg) by mouth every 8 (eight) hours if needed for mild pain. Do not crush, chew, or split. 30 tablet 0 [] amoxicillin (Amoxil) 500 MG capsule Take 1 capsule (500 mg) by mouth every 8 (eight) hours for 7 days. 21 capsule 0 ARIPiprazole (Abilify) 2 MG tablet Take 2 mg by mouth Once per day. citalopram (CeleXA) 20 MG tablet Take by mouth. ibuprofen 600 MG tablet Take 1 tablet (600 mg) by mouth 3 times daily. 30 tablet 0 LORazepam (Ativan) 0.5 MG tablet Take by mouth. omeprazole OTC (PriLOSEC OTC) 20 MG EC tablet Take 20 mg by mouth before breakfast. Do not crush, chew, or split. No facility-administered encounter medications on file as of 09/27/2025. documented in this encounter Plan of Treatment Upcoming Encounters Date Type Department Care Team (Late st Contact Info) Description 11/12/2025 2:15 PM EST Office Visit [facility] [address] [place] [address] Stefany Stein [address] [place] [address] Scheduled Orders Name Type Priority Associated Diagnoses Orde r Schedule Full Full PROPHYLAXIS - ADULT Dental Routine [address] arting 09/27/2025 COMPREHENSIVE ORAL EVALUATION - NEW OR ESTABLISHED PATIENT Dental Routine 1 Occurrence s starting 09/27/2025 BITEWINGS - 4 RADIOGRAPHIC IMAGES Dental Routine 1 Occurrence s starting 09/27/2025 COMPREHENSIVE PERIODONTAL EVALUATION - NEW OR ESTABLISHED PATIENT Dental Routine 1 Occurrence s starting 09/27/2025 documented as of this encounter Procedures Procedure Name Priority Date/Time Associated Diagnosis Comments 15 EXTRACTION, ERUPTED TOOTH OR EXPOSED ROOT (ELEVATION/FORCEPS REMOVAL) Routine 09/27/2025 10:00 AM EST documented in this encounter Visit Diagnoses Diagnosis Pain, dental- Primary Severe dental caries Dental abscess Periapical abscess without sinus documented in this encounter
[2025-09-30 11:18] LABS: MANUAL DIFF FLAG NO
[2025-09-30 11:37] LABS: Appearance Urine Clear; Glucose Urine UA Negative (Negative); PH 5.0 (5.0-9.0); Specific Gravity - Urine 1.020 (1.005-1.025); UMIC TRIGGER UACC YES
[2025-09-30 11:42] LABS: Hematocrit 47.0 % (42.0-52.0); Hemoglobin 15.7 g/dl (14.0-18.0); Imm Gran Abs Auto 0.03 X10*3/uL (0.00-0.03); Imm Gran Pct Auto 0.3 % (0.0-0.4); Lymphocytes Absolute Auto 3.2 X10*3/uL (1.2-4.9); Mean Corpuscular HGB Conc 33.4 g/dl (31.0-36.0); Mean Corpuscular Hemoglobin 28.8 pg (27.0-33.0); Mean Corpuscular Volume 86.1 fL (80.0-98.0); NRBC Abs Auto 0.000 X10*3/uL (0.0-0.012); NRBC Pct Auto 0.0 /100WBC (0.0-0.2); Platelet Count 244 X10*3/uL (160-400); Red Blood Count 5.46 X10*6/uL (4.60-5.80); White Blood Count 8.9 X10*3/uL (4.8-10.8)
[2025-09-30 12:04] LABS: PSA,Total (Free>4and<10) 0.19 ng/mL (0.00-4.00)
--- OUTSIDE RECORDS SUMMARY | 2025-09-30 14:38 | XMS_ITS | Clinical Summary ---
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 Do not crush, chew, or split. Active citalopram (CeleXA) 20 MG tablet Take by mouth. Active LORazepam (Ativan) 0.5 MG tablet Take by mouth. Active ARIPiprazole (Abilify) 2 MG tablet Take 2 mg by mouth Once per day. Active acetaminophen (Tylenol 8 Hour) 650 MG ER tablet Take 1 tablet (650 mg) by mouth every 8 (eight) hours if needed for mild pain. Do not crush, chew, or split. 30 tablet 09/16/2025 Active ibuprofen 600 MG tablet Take 1 tablet (600 mg) by mouth 3 times daily. 30 tablet 09/16/2025 Active amoxicillin (Amoxil) 500 MG capsule Take 1 capsule (500 mg) by mouth every 8 (eight) hours for 7 days. 21 capsule 09/16/2025 09/23/20 25 Active Problems Problem Noted Date Diagnosed Date Dental abscess 09/16/2025 Severe dental caries 09/16/2025 Pain, dental 09/16/2025 Encounters Date Type Department Care Team Description 09/27/2025 10:00 AM EST Office Visit [facility] ADULT DENTAL [address] [place] [address] Arvin Red DDS Pain, dental (Primary Dx); Severe dental caries; Dental abscess 09/23/2025 Travel 09/16/2025 11:30 AM EST Office Visit [facility] ADULT DENTAL [address] [place] [address] Arvin Red DDS Dental abscess (Primary Dx); Severe dental caries; Pain, dental 09/16/2025 Telephone [facility] ADULT DENTAL [address] [place] [address] BOLANO PT 09/16/2025 Telephone [facility] ADULT DENTAL [address] [place] [address] Arvin Red DDS from Last 3 Months Social History Tobacco Use Types Packs/Day Years Used Date Smoking Tobacco: Former Cigarettes Passive Smoke Exposure: Never Smokeless Tobacco: Former Tobacco Cessation:Counseling Given: No Alcohol Use Standard Drinks/Week Comments Defer 0 (1 standard drink = 0.6 oz pur e alcohol) Sex and Gender Information Value Date Recorded Sex Assigned at Male 09/16/2025 8:51 AM EST Legal Sex Male 8:50 AM EST Gender Identity Male 09/16/2025 8:51 AM EST Sexual Orientation Straight 09/16/2025 8: 57 AM EST Last Filed Vital Signs Vital Sign Reading Time Taken Comments Blood Pressure 120/82 09/27/2025 10:10 AM EST Pulse 69 09/27/2025 10:10 AM EST Temperature - - Respiratory Rate - - Oxygen Saturation - - Inhaled Oxygen Concentration - - Weight - - Height - - Body Mass Index - - Plan of Treatment Upcoming Encounters Date Type Department Care Team (Late st Contact Info) Description 11/12/2025 2:15 PM EST Office Visit [facility] ADULT DENTAL [address] [place] [address] SaritaStefany [address] [place] [address] Health Maintenance Due Date Last Done Comments Anal Pap 1965 CT Colonography 1965 Colonoscopy 1965 Colorectal Cancer Screening 1965 Dental Oral Exam 1965 Dental Prophylaxis 1965 Dental X-Ray: Bitewings 1965 Depression Screening 1965 FIT DNA/Cologuard 1965 FIT 1965 FOBT 1965 HIV Screening 1965 Lipid Panel 1965 SDOH Screening 1965 Sigmoidoscopy 1965 Disability Screening 1965 Alcohol/Substance Use Screening 1977 Hepatitis C Screening 1983 Hepatitis A Vaccines (1 of 2 - Risk 2-dose series) 1984 Zoster Vaccines (2 of 2) 09/20/2024 07/26/2024 Hepatitis B Vaccines (1 of 3 - Risk 3-dose series) 2025 COVID-19 Vaccine ( season) 2025 07/26/2024, 08/04/2023, 07/20/2022, Additional history exists Influenza Vaccine (#1) 2025 , 07/18/2023, 11/12/2022, Additional history exists Tobacco Screening 09/27/2026 09/27/2025 Dental X-Ray: Full Mouth 09/17/2028 09/16/2025 DTaP/Tdap/Td Vaccines (2 - Td or Tdap) 07/11/2029 07/11/2019, 07/11/2019 RSV Patients and Patients Aged 60 years or older (1 - 1-dose 75+ series) 2040 Pneumococcal Vaccine: 50+ Years Completed 07/26/2024, 09/12/2020, 07/28/2013 HIB Vaccines Aged Out No longer eligi ble based on patient's age to complete this topic HPV Vaccines Aged Out No longer eligi ble based on patient's age to complete this topic IPV Vaccines Aged Out No longer eligi ble based on patient's age to complete this topic Meningococcal B Vaccine Aged Out No l onger eligible based on patient's age to complete this topic Meningococcal Vaccine Aged Out No joselin floridalma eligible based on patient's age to complete this topic RSV under 20 months Aged Out No longe r eligible based on patient's age to complete this topic Rotavirus Vaccines Aged Out No longer eligible based on patient's age to complete this topic Procedures Procedure Name Priority Date/Time Associated Diagnosis Comments 15 EXTRACTION, ERUPTED TOOTH OR EXPOSED ROOT (ELEVATION/FORCEPS REMOVAL) Routine 09/27/2025 10:00 AM EST CASE PRESENTATION, DETAILED AND EXTENSIVE TREATMENT PLANNING Routine 09/16/2025 11:30 AM EST PANORAMIC RADIOGRAPHIC IMAGE Routine 09/16/2025 11:30 AM EST LIMITED ORAL EVALUATION - PROBLEM FOCUSED Routine 09/16/2025 11:30 AM EST from Last 3 Months Insurance [facility] (MEDICAID)
--- OUTSIDE RECORDS SUMMARY | 2025-09-30 14:38 | XMS_ITS | Encounter Summary ---
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 He went to the pharmacy and they said a script was never made. Please call pt to inform him when his meds will be ready. If the [facility] is not on file the pharmacy at [facility] is fine. Thank you documented in this encounter Plan of Treatment Upcoming Encounters Date Type Department Care Team ([facility] Contact Info) Description 11/12/2025 2:15 PM EST Office Visit [facility] ADULT DENTAL [address] [place] [address] Stefany Stein [address] [place] [address] documented as of this encounter Visit Diagnoses Not on filedocumented in this encounter
--- OUTSIDE RECORDS SUMMARY | 2025-09-30 14:38 | XMS_ITS | Encounter Summary ---
Author Organization [employer] Address [address] [facility] [address] [place] [address] Care Team Providers Care Unit Educator Name Role Phone Unavailable Primary Care Provider Unavailabl e Encounter Details Date Type Department Care Team (Late st Contact Info) Description 09/16/2025 Telephone [facility] ADULT DENTAL [address] [place], [place] [phone] Arvin Red DDS [address] [place], [place] [phone] Social History Tobacco Use Types Packs/Day Years [...] Telephone Encounter - Nick Cantu - 09/16/2025 9:01 AM EST UNABLE TO POST COVERAGE DUE TO PORTALS NOT BEING SET UP IN OUR [facility] documented in this encounter Plan of Treatment Upcoming Encounters Date Type Department Care Team (Late st Contact Info) Description 11/12/2025 2:15 PM EST Office Visit [facility] ADULT DENTAL [address] [place] [address] Stefany Stein [address] [place] [address] documented as of this encounter Visit Diagnoses Not on filedocumented in this encounter
[2025-09-30 16:10] LABS: Alanine Aminotransferase 35 U/L (0-40); Albumin Level 4.5 g/dL (3.5-5.0); Alkaline Phosphatase 75 U/L (39-117); Anion Gap 12 (12-20); Aspartate Amino Transferase 64 U/L (5-37); Blood Urea Nitrogen 21 mg/dL (9-16); Calcium 9.4 mg/dL (8.4-10.2); Carbon Dioxide 28 mmol/L (22-29); Chloride 108 mmol/L (96-108); Cholesterol 135 mg/dL (<200); Estimated Glomerular Filt Rate > 60; HDL Cholesterol 32 mg/dL (>40); Potassium 3.8 mmol/L (3.3-5.1); Sodium 144 mmol/L (135-145); Total Protein 8.0 g/dL (6.5-8.0); Triglycerides 221 mg/dL (<150)
== END 2025-09-30 11:16 | disposition home or self-care (01) ==
LOC: HO.LNP 11:15
PROVIDERS: Visit Provider Internal Medicine
DX: Z00.00 Encounter for general adult medical examination without abnormal findings (principal); E78.6 Lipoprotein deficiency; D72.820 Lymphocytosis (symptomatic)
CPT/HCPCS: 80053; 80061; 81001; 84153; 85025